=== PATIENT | male | born 1930 | race Caucasian/White ===

== ENCOUNTER 2016-10-03 15:47 | Inpatient (IN) | payer MEDICARE ==
[2016-10-03] MEDS ORDERED: Sodium Chloride 0.9% 1,000 ML IV STA (16:28)
--- NOTE | 2016-10-03 16:37 | ED PDOC ---
HPI: Abdomen Time Seen by Provider: 10/03/16 16:09 Chief Complaint (Nursing): Abdominal Pain Chief Complaint (Provider): Abdominal Pain History Per: Patient History/Exam Limitations: no limitations Onset/Duration Of Symptoms: Hrs (x2) Current Symptoms Are (Timing): Still Present Additional Complaint(s): Jose Sharma is a 86 year old male with previous medical history of diabetes and hypertension, who presents to the emergency department for a complaint of constant right-sided abdominal pain radiating to upper abdomen associated with chills ongoing to 2 hours. Denied any vomiting, diarrhea, or fever. PMD: Huan Bangura MD Past Medical History Reviewed: Historical Data, Nursing Documentation, Vital Signs Vital Signs: Last Vital Signs Temp 98.0 F 10/10/16 07:23 Pulse 82 10/10/16 09:01 Resp 20 10/10/16 07:23 BP 146/65 10/10/16 09:01 Pulse Ox 97 10/10/16 07:23 - Medical History PMH: Diabetes, HTN, Hypercholesterolemia - Surgical History Surgical History: Hernia Repair - Family History Family History: States: Unknown Family Hx - Social History Current smoker - smoking cessation education provided: No Drugs: Denies - Immunization History Hx Tetanus Toxoid Vaccination: (UTD as per patient) - Home Medications Home Medications: Ambulatory Orders Medication Instructions Recorded Ciprofloxacin HCl [Cipro] 500 mg PO Q12 #20 tablet 10/10/16 Olmesartan/Hydrochlorothiazide 1 tab PO DAILY #30 tab 10/10/16 [Benicar Hct 40-12.5 mg Tablet] Pioglitazone HCl/Metformin HCl 1 tab PO DAILY #30 tab 10/10/16 [Actoplus Met 15 mg-500 mg Tab] amLODIPine [Norvasc] 10 mg PO DAILY #30 tab 10/10/16 metroNIDAZOLE [Flagyl] 500 mg PO Q8 #30 tab 10/10/16 traMADol [Ultram] 50 mg PO Q6 PRN #20 tab 10/10/16 - Allergies Allergies/Adverse Reactions: Allergies Allergy/AdvReac Type Severity Reaction Status Date / Time Penicillins Allergy Mild RASH Verified 04/22/15 13:07 Review of Systems ROS Statement: Except As Marked, All Systems Reviewed And Found Negative Constitutional: Positive for: Chills. Negative for: Fever Gastrointestinal: Positive for: Abdominal Pain (constant; right sided radiating to upper abdomen ). Negative for: Vomiting, Diarrhea Physical Exam - Reviewed Nursing Documentation Reviewed: Yes Vital Signs Reviewed: Yes - Physical Exam Appears: Positive for: Well, Non-toxic, No Acute Distress Head Exam: Positive for: ATRAUMATIC, NORMAL INSPECTION, NORMOCEPHALIC Skin: Positive for: Normal Color, Warm, Dry Cardiovascular/Chest: Positive for: Regular Rate, Rhythm Respiratory: Positive for: CNT, Normal Breath Sounds Gastrointestinal/Abdominal: Positive for: Tenderness (RUQ) Back: Positive for: Normal Inspection. Negative for: L CVA Tenderness, R CVA Tenderness Extremity: Positive for: Normal ROM Neurologic/Psych: Positive for: Alert, car ferrier II-XII, Oriented - Laboratory Results Result Diagrams: 10/10/16 05:00 10/10/16 05:00 - ECG O2 Sat by Pulse Oximetry: 99 (RA) Pulse Ox Interpretation: Normal Medical Decision Making Medical Decision Making: Initial Impression: Abdominal pain Differential diagnosis: Acute cholecystitis; Pancreatitis; Renal colic with UTI Initial Plan: * VBG shock panel * Labs * Lipase * Urine dipstick * PTT * PT * Tylenol 650mg PO * NS 1,000ml IV per 500mls/hr * Zofran 4mg IV * Blood culture * Urine culture * US ABD * Re-evaluation Scribe Attestation: Documented by Diana Graf, acting as a scribe for Yenny Dennis MD. Provider Scribe Attestation: All medical record entries made by the Scribe were at my direction and personally dictated by me. I have reviewed the chart and agree that the record accurately reflects my personal performance of the history, physical exam, medical decision making, and the department course for this patient. I have also personally directed, reviewed, and agree with the discharge instructions and disposition. Disposition - Clinical Impression Clinical Impression: Acute pancreatitis, Abdominal pain - Patient ED Disposition Is Patient to be Admitted: Transfer of Care - Disposition Disposition: Transfer of Care Disposition Time: 17:00 Condition: FAIR Patient Signed Over To: Kristen Felix
--- NOTE | 2016-10-03 17:10 | ED PDOC ---
- Laboratory Results Result Diagrams: 10/03/16 17:20 10/03/16 17:20 - ECG O2 Sat by Pulse Oximetry: 99 (RA) - Physician Consult Information Time Consulting Physican Contacted: 20:10 Physician Contacted: Joanna Leal Outcome Of Conversation: Recommends additional 1 L LR then LR @ 200 cc/hr, Cefepime 1 g IV, MRCP in AM, repeat CBC and CMP (call [phone] with results). Medical Decision Making Medical Decision Making: Time: 1817 --US ABD FINDINGS: LIVER: Measures 14.6 cm in length and appears unremarkable. No focal hepatic mass identified. The main portal vein appears patent with normal directional flow. No intrahepatic bile duct dilatation. GALLBLADDER: Gallstones. No gallbladder wall thickening or pericholecystic edema. Negative sonographic Sandhu's sign as assessed by the diesel power mechanic. COMMON BILE DUCT: Measures 4 mm. PANCREAS: Not well visualized. RIGHT KIDNEY: Measures 8.4 x 4.4 x 4.8 cm. No obstructing calculus or hydronephrosis identified. AORTA: Limited visualization appears grossly unremarkable. IVC: Limited visualization appears grossly unremarkable. OTHER FINDINGS: None . IMPRESSION: Cholelithiasis Time: 1940 --CT ABD/Pelvis FINDINGS: Artifacts: Motion artifact degrades image quality. Streak artifact degrades image quality. Lower thorax: The heart is mildly enlarged. There are coronary calcifications. There is a hiatal hernia. There is minimal atelectasis at the lung bases ABDOMEN: Liver: unremarkable Gallbladder and bile ducts: Gallbladder is distended. There are small stones. Common duct is prominent. Pancreas: There is mild prominence of the pancreatic head. There is minimal edema about the pancreatic head. Pancreatic tail and body are unremarkable. Distal pancreatic duct is prominent, 5.5 mm in diameter. Spleen: unremarkable Adrenals: unremarkable Kidneys and ureters: unremarkable Stomach and bowel: Stomach is partially distended. There is mild antral and duodenal wall thickening. There is a moderately large duodenal diverticulum Rotation is normal. There are mildly distended jejunal loops in the left upper quadrant. There is no small bowel obstruction. Appendix and terminal ileum are unremarkable. There is moderate stool in the colon. There is scattered diverticulosis Appendix: See above. PELVIS: Bladder: Bladder is partially distended. There is mild bladder wall thickening. Reproductive: Prostate is enlarged. Seminal vesicles are unremarkable. ABDOMEN and PELVIS: Intraperitoneal space: No air-fluid Bones/joints: There are degenerative changes in the osseus structures. There is partial ankylosis of the sacroiliac joints. There is L5 spondylolysis with spondylolisthesis. There is degenerative disc disease L5-S1 with disc bulging. Soft tissues: There are bilateral fat-containing inguinal hernias. Vasculature: There are vascular calcifications. Lymph nodes: There is shotty upper para-aortic adenopathy. IMPRESSION: Prominence of the pancreatic head with adjacent inflammatory change and mild ductal dilatation, findings suggest pancreatitis, underlying neoplasm cannot be excluded; gallstone; no renal or ureteral stones or hydronephrosis; no CT findings of appendicitis or diverticulitis Disposition - Clinical Impression Clinical Impression: Acute pancreatitis - POA Present On Arrival: None - Disposition Disposition: Admitted as In-Patient Disposition Time: 20:20 Condition: GUARDED Forms: [facility] (Faroese) Addendum Addendum: 10/03/16 17:00 Pt signed out by Dr. Dennis pending labs and ultrasound.
[2016-10-03 17:35] LABS: ALB/GLOB RATIO 1.4 (1.0-2.1); ALKALINE PHOSPHATASE 128 U/L (38-126); ALT/SGPT 156 U/L (21-72); AST/SGOT 207 U/L (17-59); BILIRUBIN,TOTAL 1.3 mg/dl (0.2-1.3); BLOOD UREA NITROGEN 34 mg/dl (9-20); CALCIUM 9.5 mg/dL (8.4-10.2); CARBON DIOXIDE 23 mmol/L (22-30); CHLORIDE 102 mmol/L (98-107); GFR AFRICAN-AMERICAN > 60; GLUCOSE,RANDOM 140 mg/dL (75-110); SODIUM 139 mmol/l (132-148); TOTAL PROTEIN 7.8 G/DL (6.3-8.2)
[2016-10-03 17:40] LABS: BASO % 0.2 % (0.0-2.0); HEMATOCRIT 41.7 % (35.0-51.0); LYMPH # 0.4 K/uL (1.0-4.3); LYMPH % 2.4 % (20.0-40.0); MEAN CORPUSCULAR HEMOGLOBIN 26.9 pg (27.0-31.0); MEAN CORPUSCULAR HGB CONC 32.4 g/dL (33.0-37.0); MEAN PLATELET VOLUME 9.5 fl (7.2-11.7); MONO # 0.3 K/uL (0.0-0.8); MONO % 1.7 % (0.0-10.0); NEUT # 16.7 K/uL (1.8-7.0); NEUT % 95.7 % (50.0-75.0); PLATELET COUNT 152 K/uL (130-400); RED CELL DISTRIBUTION WIDTH 14.6 % (11.5-14.5); WHITE BLOOD COUNT 17.4 K/uL (4.8-10.8)
[2016-10-03 17:56] LABS: VENOUS BLOOD GAS BASE EXCESS -1.7 mmol/L (0.0-2.0); VENOUS BLOOD GAS PCO2 45 mmHg (40-60); VENOUS BLOOD PH 7.34 (7.32-7.43)
[2016-10-03 17:58] LABS: PARTIAL THROMBOPLASTIN TIME 29.2 Seconds (25.6-37.1)
[2016-10-03 18:12] LABS: LIPASE 30358 U/L (23-300)
--- NOTE | 2016-10-03 18:20 | US ---
HISTORY: RUQ pain COMPARISON: Abdominal ultrasound performed 01/02/12 TECHNIQUE: Sonographic evaluation of the right upper quadrant of the abdomen. FINDINGS: LIVER: Measures 14.6 cm in length and appears unremarkable. No focal hepatic mass identified. The main portal vein appears patent with normal directional flow. No intrahepatic bile duct dilatation. GALLBLADDER: Gallstones. No gallbladder wall thickening or pericholecystic edema. Negative sonographic Sandhu's sign as assessed by the technical operations specialist. COMMON BILE DUCT: Measures 4 mm. PANCREAS: Not well visualized. RIGHT KIDNEY: Measures 8.4 x 4.4 x 4.8 cm. No obstructing calculus or hydronephrosis identified. AORTA: Limited visualization appears grossly unremarkable. IVC: Limited visualization appears grossly unremarkable. OTHER FINDINGS: None . IMPRESSION: Cholelithiasis.
[2016-10-03] MEDS ORDERED: Lactated Ringer's 1,000 ML IV SCH ×3 (19:15→23:15)
[2016-10-03 19:29] LABS: LARGE PLATELETS PRESENT; NEUTROPHIL 86 % (42-75); REACTIVE LYMPHOCYTES 1 % (0-0); TOTAL CELLS COUNTED 100
--- NOTE | 2016-10-03 19:42 | CT ---
EXAM: CT Abdomen and Pelvis Without Intravenous Contrast CLINICAL HISTORY: 86 years old, male; Pain; Abdominal pain; Localized; Right upper quadrant (ruq); Patient HX: Pat C/O of rt side abd pain radiating to upper abdomen associated with chills ongoing to 2 hours; Additional info: R sided abd pain, fever TECHNIQUE: Axial computed tomography images of the abdomen and pelvis without intravenous contrast. This CT exam was performed using one or more of the following dose reduction techniques: automated exposure control, adjustment of the mA and/or kV according to patient size, and/or use of iterative reconstruction technique. Coronal and sagittal reformatted images were created and reviewed. EXAM DATE/TIME: 10/03/2016 6:14 PM COMPARISON: There are no prior studies for comparison. FINDINGS: Artifacts: Motion artifact degrades image quality. Streak artifact degrades image quality. Lower thorax: The heart is mildly enlarged. There are coronary calcifications. There is a hiatal hernia. There is minimal atelectasis at the lung bases ABDOMEN: Liver: unremarkable Gallbladder and bile ducts: Gallbladder is distended. There are small stones. Common duct is prominent. Pancreas: There is mild prominence of the pancreatic head. There is minimal edema about the pancreatic head. Pancreatic tail and body are unremarkable. Distal pancreatic duct is prominent, 5.5 mm in diameter. Spleen: unremarkable Adrenals: unremarkable Kidneys and ureters: unremarkable Stomach and bowel: Stomach is partially distended. There is mild antral and duodenal wall thickening. There is a moderately large duodenal diverticulum Rotation is normal. There are mildly distended jejunal loops in the left upper quadrant. There is no small bowel obstruction. Appendix and terminal ileum are unremarkable. There is moderate stool in the colon. There is scattered diverticulosis Appendix: See above. PELVIS: Bladder: Bladder is partially distended. There is mild bladder wall thickening. Reproductive: Prostate is enlarged. Seminal vesicles are unremarkable. ABDOMEN and PELVIS: Intraperitoneal space: No air-fluid Bones/joints: There are degenerative changes in the osseus structures. There is partial ankylosis of the sacroiliac joints. There is L5 spondylolysis with spondylolisthesis. There is degenerative disc disease L5-S1 with disc bulging. Soft tissues: There are bilateral fat-containing inguinal hernias. Vasculature: There are vascular calcifications. Lymph nodes: There is shotty upper para-aortic adenopathy. IMPRESSION: Prominence of the pancreatic head with adjacent inflammatory change and mild ductal dilatation, findings suggest pancreatitis, underlying neoplasm cannot be excluded; gallstone; no renal or ureteral stones or hydronephrosis; no CT findings of appendicitis or diverticulitis Additional findings as described above.
[2016-10-03] MEDS ORDERED: Cefepime 1 GM in Sodium Chloride 0.9% 100 ML IVPB STA (20:17)
[2016-10-03] MEDS ORDERED: Glucagon Recombinant 1 mg Inj IM PRN (21:26)
[2016-10-03] MEDS ORDERED: Dextrose 50% SYRINGE Inj (50 ml) IV PRN (21:26)
[2016-10-03] MEDS: Sodium Chloride 0.9% 1,000 ML IV SCH (21:36)
[2016-10-03 21:50] LABS: VENOUS BLOOD GAS BASE EXCESS -0.1 mmol/L (0.0-2.0); VENOUS BLOOD GAS PCO2 36 mmHg (40-60); VENOUS BLOOD PH 7.43 (7.32-7.43)
[2016-10-03] MEDS: Insulin Regular 100 units/ml SC SCH (23:50)
[2016-10-04 00:18] VITALS: BMI 29.4
[2016-10-04] MEDS ORDERED: Meropenem 1 GM in Sodium Chloride 0.9% 100 ML IVPB SCH (01:00)
[2016-10-04] MEDS: Sodium Chloride 0.9% 1,000 ML IV SCH ×3 (02:48→23:19)
[2016-10-04] MEDS: HYDROmorphone 0.5 mg/0.5 ml ISec IVP PRN ×2 (03:02→21:35)
--- NOTE | 2016-10-04 03:26 | CP.PCM.HP ---
History of Present Illness - History of Present Illness History of Present Illness: Chief complaint: Abdominal Pain HPI: PT is an 86 year old male with a pmhx diabetes & hypertension who comes in secondary to abdominal pain that radiates to the back and to the right. Currently the pain is 7-8/ 10 and intermittent and associated with fever and chills along with an elevated WBC. Pt initial lactate acid slightly elevated and repeat shows an elevation in lactic acid but the pt received 3 L bolus of lactated ringers. PT appears hemodynamically stable with only real complaint of abdominal pain. PMD: Huan Bangura MD Last Vital Signs Temp 100.5 F H 10/03/16 16:01 Pulse 87 10/03/16 16:01 Resp 18 10/03/16 16:01 BP 153/63 H 10/03/16 16:01 Pulse Ox 99 10/03/16 16:01 PMH: Diabetes, HTN, Hypercholesterolemia Surgical History: Hernia Repair Family History: noncontributary Social hx: Current smoker - no toxic habits - Home Medications: Ambulatory Orders Medication Instructions Recorded ALPRAZolam [Xanax] 1 tab PO DAILY PRN #4 tab 04/22/15 Acetaminophen [Acetaminophen Extra 500 mg PO Q6 PRN #15 tablet 04/22/15 Strength] Allergies Allergy/AdvReac Type Severity Reaction Status Date / Time Penicillins Allergy Mild RASH Verified 04/22/15 13:07 14 ROS (+ve) Abdominal pain, fever - ECG O2 Sat by Pulse Oximetry: 99 (RA) Pulse Ox Interpretation: Normal Present on Admission - Present on Admission Any Indicators Present on Admission: No History of DVT/PE: No History of Uncontrolled Diabetes: No Urinary Catheter: No Decubitus Ulcer Present: No Review of Systems - Constitutional Constitutional: Chills, Fever - EENT Eyes: absent: As Per HPI, Blind Spots, Blurred Vision, Change in Vision, Decreased Night Vision, Diplopia, Discharge, Dry Eye, Exophthalmos, Floaters, Irritation, Itchy Eyes, Loss of Peripheral Vision, Pain, Photophobia, Requires Corrective Lenses, Sees Flashes, Spots in Vision, Tunnel Vision, Other Visual Disturbances, Loss of Vision, Other Ears: absent: As Per HPI, Decreased Hearing, Ear Discharge, Ear Pain, Tinnitus, Abnormal Hearing, Disequilibrium, Dizziness, Other Nose/Mouth/Throat: absent: As Per HPI, Epistaxis, Nasal Congestion, Nasal Discharge, Nasal Obstruction, Nasal Trauma, Nose Pain, Post Nasal Drip, Sinus Pain, Sinus Pressure, Bleeding Gums, Change in Voice, Dental Pain, Dry Mouth, Dysphagia, Halitosis, Hoarsness, Lip Swelling, Mouth Lesions, Mouth Pain, Odynophagia, Sore Throat, Throat Swelling, Tongue Swelling, Facial Pain, Neck Pain, Neck Mass, Other - Cardiovascular Cardiovascular: absent: As Per HPI, Acrocyanosis, Chest Pain, Chest Pain at Rest , Chest Pain with Activity, Claudication, Diaphoresis, Dyspnea, Dyspnea on Exertion, Edema, Irregular Heart Rhythm, Pain Radiating to Arm/Neck/Jaw, Leg Edema, Leg Ulcers, Lightheadedness, Orthopnea, Palpitations, Paroxysmal Nocturnal Dyspnea, Pedal Edema, Radiating Pain, Rapid Heart Rate, Slow Heart Rate, Syncope, Other - Respiratory Respiratory: absent: As Per HPI, Cough, Dyspnea, Hemoptysis, Dyspnea on Exertion , Wheezing, Snoring, Stridor, Pain on Inspiration, Chest Congestion, Excessive Mucous Production, Change in Mucous Color, Pain with Coughing, Other - Gastrointestinal Gastrointestinal: Abdominal Pain - Musculoskeletal Musculoskeletal: absent: As Per HPI, Abnormal Gait, Arthralgias, Atrophy, Back Pain, Deformity, Joint Swelling, Limited Range of Motion, Loss of Height, Muscle Cramps, Muscle Weakness, Myalgias, Neck Pain, Numbness, Radiating Pain into Limb, Stiffness, Tingling, Other - Integumentary Integumentary: absent: As Per HPI, Acne, Alopecia, Bleeding Lesions, Change in Hair, Change in Nails, Change in Pigmentation, Changing Lesions, Dry Skin, Erythema, Furuncle, Hirsutism, Lesions, New Lesions, Non-Healing Lesions, Photosensitivity, Pruritus, Rash, Skin Pain, Skin Ulcer, Sores, Striae, Swelling , Unusual Bruising, Wounds, Jaundice, Other - Neurological Neurological: absent: As Per HPI, Abnormal Gait, Abnormal Hearing, Abnormal Movements, Abnormal Speech, Behavioral Changes, Burning Sensations, Confusion, Convulsions, Disequilibrium, Dizziness, Numbness, Focal Weakness, Frequent Falls , Headaches, Lack of Coordination, Loss of Vision, Memory Loss, Paresthesias, Radicular Pain, Restless Legs, Sensory Deficit, Syncope, Tingling, Tremor, Vertigo, Weakness, Other Visual Disturbances, Other - Psychiatric Psychiatric: absent: As Per HPI, Abnormal Sleep Pattern, Anhedonia, Anxiety, Auditory Hallucinations, Behavioral Changes, Change in Appetite, Change in Libido, Confusion, Depression, Difficulty Concentrating, Hallucinations, Homicidal Ideation, Hopelessness, Irritability, Memory Loss, Mood Swings, Panic Attacks, Paranoia, Suicidal Ideation, Visual Hallucinations, Tactile Hallucinations, Other - Endocrine Endocrine: absent: As Per HPI, Change in Body Appearance, Change in Libido, Cold Intolorance, Deepening of Voice, Excessive Sweating, Fatigue, Flushing, Heat Intolorance, Increase in Ring/Shoe/Hat Size, Palpitations, Polydipsia, Polyphagia, Polyuria, Other - Hematologic/Lymphatic Hematologic: absent: As Per HPI, Easy Bleeding, Easy Bruising, Lymphadenopathy, Other Past Patient History - Past Medical History & Family History Past Medical History?: Yes - Past Social History Smoking Status: Former Smoker Chewing Tobacco Use: No Cigar Use: No - CARDIAC Hx Cardiac Disorders: Yes Hx Hypertension: Yes - PULMONARY Hx Respiratory Disorders: No - NEUROLOGICAL Hx Neurological Disorder: No Other/Comment: 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 - HEENT Hx HEENT Problems: No - RENAL Hx Chronic Kidney Disease: No - ENDOCRINE/METABOLIC Hx Endocrine Disorders: Yes Hx Diabetes Mellitus Type 2: Yes - HEMATOLOGICAL/ONCOLOGICAL Hx Blood Disorders: No Hx AIDS: No Hx Human Immunodeficiency Virus (HIV): No - INTEGUMENTARY Hx Dermatological Problems: No - MUSCULOSKELETAL/RHEUMATOLOGICAL Hx Musculoskeletal Disorders: No Hx Falls: No - GASTROINTESTINAL Hx Gastrointestinal Disorders: No - GENITOURINARY/GYNECOLOGICAL Hx Genitourinary Disorders: No - PSYCHIATRIC Hx Psychophysiologic Disorder: No Hx Substance Use: No - SURGICAL HISTORY Hx Surgeries: Yes Hx Herniorrhaphy: Yes - ANESTHESIA Hx Anesthesia: No Hx Anesthesia Reactions: No Hx Malignant Hyperthermia: No Has any member of the family had a problem w/ anesthesia?: No Meds Allergies/Adverse Reactions: Allergies Allergy/AdvReac Type Severity Reaction Status Date / Time Penicillins Allergy Mild RASH Verified 04/22/15 13:07 Physical Exam - Constitutional Appears: Well, In Acute Distress - Head Exam Head Exam: ATRAUMATIC, NORMAL INSPECTION, NORMOCEPHALIC - Eye Exam Eye Exam: EOMI, Normal appearance, PERRL Pupil Exam: NORMAL ACCOMODATION - ENT Exam ENT Exam: Mucous Membranes Moist, Normal Exam - Neck Exam Neck exam: Positive for: Normal Inspection - Respiratory Exam Respiratory Exam: Clear to Auscultation Bilateral, NORMAL BREATHING PATTERN - Cardiovascular Exam Cardiovascular Exam: REGULAR RHYTHM, +S2 - GI/Abdominal Exam GI & Abdominal Exam: Normal Bowel Sounds - Extremities Exam Extremities exam: Positive for: normal inspection - Back Exam Back exam: NORMAL INSPECTION - Neurological Exam Neurological exam: Alert, CN II-XII Intact, Normal Gait, Oriented x3, Reflexes Normal - Psychiatric Exam Psychiatric exam: Normal Affect, Normal Mood - Skin Skin Exam: Dry, Intact, Normal Color, Warm Results - Vital Signs Recent Vital Signs: Last Vital Signs Temp 98.5 F 10/04/16 00:00 Pulse 82 10/04/16 03:04 Resp 18 10/04/16 03:04 BP 141/54 L 10/04/16 03:04 Pulse Ox 94 L 10/04/16 03:04 - Labs Result Diagrams: 10/03/16 17:20 10/03/16 17:20 Labs: Laboratory Results - last 24 hr 10/03/16 10/03/16 21:45 22:54 pO2 24 L VBG pH 7.43 VBG pCO2 36 L VBG HCO3 23.4 VBG Total CO2 25.0 VBG O2 Sat (Calc) 52.6 VBG Base Excess -0.1 L Sodium 183.0 H* Chloride 121.0 H Glucose 118 H Lactate 3.8 H FiO2 21.0 Blood Gas Comments Vbg Crit Value Called To Dr maria dolores cortes Crit Value Called By 162 Crit Value Read Back Y Blood Gas Notified Time 2149 POC Glucose (mg/dL) 123 H Assessment & Plan - Assessment and Plan (Free Text) Assessment: PT is a 86 yo male gambian speaking who comes in secondary to abdominal pain that a Ct scan confirms is a pancreatitis along with an elevated lipase level. Plan: admit to [facility] 1) pancreatitis- with an elevated lipase and high white count - iv abx with zosyn - iv pain management with dilaudid - iv aggresive fluid hydration at 150 cc/hr - fever/chills- pancytopenia - npo 2) Dm- sliding scale with sliding scale 3) HTn- will hold bp meds for now 4) gi and dvt prophylaxis - Date & Time Date: 10/04/16 Time: 03:34
[2016-10-04 05:21] LABS: BASO % 0.1 % (0.0-2.0); HEMATOCRIT 34.3 % (35.0-51.0); LYMPH # 0.3 K/uL (1.0-4.3); LYMPH % 1.5 % (20.0-40.0); MEAN CELL VOLUME 81.8 fl (80.0-94.0); MEAN CORPUSCULAR HEMOGLOBIN 26.4 pg (27.0-31.0); MEAN CORPUSCULAR HGB CONC 32.3 g/dL (33.0-37.0); MEAN PLATELET VOLUME 9.9 fl (7.2-11.7); MONO # 1.3 K/uL (0.0-0.8); MONO % 5.7 % (0.0-10.0); NEUT # 20.9 K/uL (1.8-7.0); NEUT % 92.7 % (50.0-75.0); PLATELET COUNT 122 K/uL (130-400); RED CELL DISTRIBUTION WIDTH 14.1 % (11.5-14.5); WHITE BLOOD COUNT 22.5 K/uL (4.8-10.8)
[2016-10-04 05:29] LABS: ALB/GLOB RATIO 1.2 (1.0-2.1); ALKALINE PHOSPHATASE 108 U/L (38-126); ALT/SGPT 349 U/L (21-72); AST/SGOT 296 U/L (17-59); BILIRUBIN,TOTAL 3.3 mg/dl (0.2-1.3); BLOOD UREA NITROGEN 25 mg/dl (9-20); CALCIUM 8.3 mg/dL (8.4-10.2); CARBON DIOXIDE 23 mmol/L (22-30); CHLORIDE 107 mmol/L (98-107); CHOLESTEROL 127 mg/dL (0-199); GFR AFRICAN-AMERICAN > 60; GLUCOSE,RANDOM 111 mg/dL (75-110); MAGNESIUM 1.5 MG/DL (1.6-2.3); POTASSIUM 3.8 MMOL/L (3.6-5.0); SODIUM 137 mmol/l (132-148); TOTAL PROTEIN 5.9 G/DL (6.3-8.2)
[2016-10-04 05:52] LABS: NEUTROPHIL 94 % (42-75); TOTAL CELLS COUNTED 100
[2016-10-04 06:09] LABS: LIPASE 3990 U/L (23-300)
[2016-10-04] MEDS: Insulin Regular 100 units/ml SC SCH ×4 (06:33→21:39)
--- NOTE | 2016-10-04 07:55 | CP.CCUPN ---
<Alice Song - Last Filed: 10/04/16 12:26> CCU Subjective - Physician Review Subjective (Free Text): 10/04/16 07:52 Patient seen and examined bedside. Patient states that abdominal pain has subsided 90 % with medications. Patient denies in the morning abdominal pain, fever, N/V/D, constipation. Patient denies weight loss, jaundice, choluria.NPO. last BM 2 days ago. Febrile on admission and today in the morning T max 100.8 3am.will have MRCP in the morning CCU Objective - Vital Signs / Intake & Output Vital Signs (Last 4 hours): Vital Signs Temp Pulse Resp BP Pulse Ox 10/04/16 07:34 98.3 F 59 L 16 118/52 L 98 10/04/16 06:03 99.4 F 66 22 102/49 L 96 10/04/16 04:00 100.4 F H 79 16 99 Intake and Output (Last 8hrs): Intake & Output 10/03/16 10/04/16 10/04/16 22:59 06:59 14:59 Intake Total 1450 150 Output Total 1300 Balance 150 150 Weight 166 lb Intake: IV 1350 150 Oral 100 Output: Urine 1300 Urine, Voided 1300 Other: # Voids Urine, Voided 1 # Bowel Movements 0 - Physical Exam Head: Positive for: Atraumatic, Normocephalic Conjunctiva: Positive for: Normal Mouth: Positive for: Moist Mucous Membranes Respiratory/Chest: Positive for: Good Air Exchange, Rales (scattered fine rales b/L lung bases). Negative for: Wheezes, Rhonchi Cardiovascular: Positive for: Regular Rate and Rhythm, Normal S1, S2. Negative for: Murmurs Abdomen: Positive for: Tenderness (Mild TD on epigastrium, Neg Sandhu's sign), Normal Bowel Sounds. Negative for: Distention, Rebound, Guarding Upper Extremity: Positive for: Other (3rd left fingertip with small 0.5 cm hematoma) Lower Extremity: Positive for: Normal Inspection. Negative for: Edema Neurological: Positive for: Speech Normal, Motor Func Grossly Intact Skin: Positive for: Warm, Normal Color Psychiatric: Positive for: Alert, Oriented x 3 - Medications Active Medications: Active Medications Generic Name Dose Route Start Last Admin Trade Name Freq PRN Reason Stop Dose Admin Acetaminophen 650 mg 10/04/16 03:14 10/04/16 03:20 Tylenol 650 Mg Supp NH 650 mg Q6 PRN Administration Fever >100.4 F Dextrose 0 ml 10/03/16 21:26 Dextrose 50% Inj IV STAT PRN Hyglycemia Protocol Protocol Dextrose 0 gm 10/03/16 21:26 Glutose 15 PO ONCE PRN Hypoglycemia Protocol Protocol Enoxaparin Sodium 40 mg 10/04/16 09:00 Lovenox SC DAILY SUDHA Protocol Famotidine 20 mg 10/04/16 09:00 Pepcid IVP DAILY SUDHA Glucagon 0 mg 10/03/16 21:26 Glucagen Diagnostic Kit IM STAT PRN Hypoglycemia Protocol Protocol Hydromorphone HCl 0.5 mg 10/04/16 02:56 10/04/16 03:02 Dilaudid IVP 0.5 mg RQ4PRN PRN Administration Pain, severe (8-10) Lactated Ringer's 1,000 mls @ 1,000 mls/hr 10/03/16 19:15 10/03/16 19:18 Lactated Ringer's IV 1,000 mls/hr .Q1H SUDHA Administration Lactated Ringer's 1,000 mls @ 1,000 mls/hr 10/03/16 20:30 10/03/16 20:53 Lactated Ringer's IV 1,000 mls/hr .Q1H SUDHA Administration Sodium Chloride 1,000 mls @ 150 mls/hr 10/03/16 21:15 10/04/16 02:48 Sodium Chloride 0.9% IV 10/04/16 21:14 150 mls/hr .[id number] SUDHA Administration Cefepime HCl 1 gm/ Sodium 100 mls @ 100 mls/hr 10/04/16 09:00 Chloride IVPB Q8 SUDHA Lactated Ringer's 1,000 mls @ 200 mls/hr 10/03/16 23:15 Lactated Ringer's IV .Q5H SUDHA Insulin Human Regular 0 units 10/03/16 22:00 10/04/16 06:33 Humulin R SC Not Given ACHS [facility] Protocol Ondansetron HCl 4 mg 10/03/16 21:15 Zofran Inj IVP Q6 PRN Nausea/Vomiting Pneumococcal Polyvalent Vaccine 0.5 ml 10/04/16 08:00 Pneumovax 23 Vaccine IM 10/04/16 08:01 .ONCE ONE - Patient Studies Lab Studies: Lab Studies 10/04/16 10/04/16 10/04/16 Range/Units 05:27 04:25 04:25 WBC 22.5 H (4.8-10.8) K/uL RBC 4.19 L (4.40-5.90) Mil/uL Hgb 11.1 L D (12.0-18.0) g/dL Hct 34.3 L (35.0-51.0) % MCV 81.8 (80.0-94.0) fl MCH 26.4 L (27.0-31.0) pg MCHC 32.3 L (33.0-37.0) g/dL RDW 14.1 (11.5-14.5) % Plt Count 122 L D (130-400) K/uL MPV 9.9 (7.2-11.7) fl Neut % (Auto) 92.7 H (50.0-75.0) % Lymph % (Auto) 1.5 L (20.0-40.0) % [place] % (Auto) 5.7 (0.0-10.0) % Eos % (Auto) 0.0 (0.0-4.0) % Baso % (Auto) 0.1 (0.0-2.0) % Neut # 20.9 H (1.8-7.0) K/uL Lymph # 0.3 L (1.0-4.3) K/uL [place] # 1.3 H (0.0-0.8) K/uL Eos # 0.0 (0.0-0.7) K/uL Baso # 0.0 (0.0-0.2) K/uL Neutrophils % (Manual) 94 H (42-75) % Lymphocytes % (Manual) 1 L (20-50) % Monocytes % (Manual) 5 (0-10) % Platelet Estimate Slightly decreased L (NORMAL) Anisocytosis (manual) Slight pO2 (30-55) mm/Hg VBG pH (7.32-7.43) VBG pCO2 (40-60) mmHg VBG HCO3 mmol/L VBG Total CO2 (22-28) mmol/L VBG O2 Sat (Calc) (40-65) % VBG Base Excess (0.0-2.0) mmol/L Sodium 137 (132-148) mmol/L Chloride 107 (98-107) mmol/L Glucose (75-110) mg/dL Lactate (0.7-2.1) mmol/L FiO2 % Blood Gas Comments Crit Value Called To Crit Value Called By Crit Value Read Back Blood Gas Notified Time Potassium 3.8 (3.6-5.0) MMOL/L Carbon Dioxide 23 (22-30) mmol/L Anion Gap 11 (10-20) BUN 25 H (9-20) mg/dl Creatinine 1.0 (0.8-1.5) mg/dL Est GFR ( Amer) > 60 Est GFR (Non-Af Amer) > 60 POC Glucose (mg/dL) 113 H (65-110) mg/dL Random Glucose 111 H (75-110) mg/dL Calcium 8.3 L (8.4-10.2) mg/dL Magnesium 1.5 L (1.6-2.3) MG/DL Total Bilirubin 3.3 H (0.2-1.3) mg/dl AST 296 H D (17-59) U/L ALT 349 H D (21-72) U/L Alkaline Phosphatase 108 (38-126) U/L Total Protein 5.9 L (6.3-8.2) G/DL Albumin 3.2 L D (3.5-5.0) g/dL Globulin 2.7 (2.2-3.9) gm/dL Albumin/Globulin Ratio 1.2 (1.0-2.1) Triglycerides 53 D (0-149) mg/DL Cholesterol 127 (0-199) mg/dL LDL Cholesterol Direct 80 (0-129) mg/dL HDL Cholesterol 29 L (30-70) MG/DL Lipase 3990 H (23-300) U/L 10/03/16 10/03/16 Range/Units 22:54 21:45 WBC (4.8-10.8) K/uL RBC (4.40-5.90) Mil/uL Hgb (12.0-18.0) g/dL Hct (35.0-51.0) % MCV (80.0-94.0) fl MCH (27.0-31.0) pg MCHC (33.0-37.0) g/dL RDW (11.5-14.5) % Plt Count (130-400) K/uL MPV (7.2-11.7) fl Neut % (Auto) (50.0-75.0) % Lymph % (Auto) (20.0-40.0) % [place] % (Auto) (0.0-10.0) % Eos % (Auto) (0.0-4.0) % Baso % (Auto) (0.0-2.0) % Neut # (1.8-7.0) K/uL Lymph # (1.0-4.3) K/uL [place] # (0.0-0.8) K/uL Eos # (0.0-0.7) K/uL Baso # (0.0-0.2) K/uL Neutrophils % (Manual) (42-75) % Lymphocytes % (Manual) (20-50) % Monocytes % (Manual) (0-10) % Platelet Estimate (NORMAL) Anisocytosis (manual) pO2 24 L (30-55) mm/Hg VBG pH 7.43 (7.32-7.43) VBG pCO2 36 L (40-60) mmHg VBG HCO3 23.4 mmol/L VBG Total CO2 25.0 (22-28) mmol/L VBG O2 Sat (Calc) 52.6 (40-65) % VBG Base Excess -0.1 L (0.0-2.0) mmol/L Sodium 183.0 H* (132-148) mmol/L Chloride 121.0 H (98-107) mmol/L Glucose 118 H (75-110) mg/dL Lactate 3.8 H (0.7-2.1) mmol/L FiO2 21.0 % Blood Gas Comments Vbg Crit Value Called To Dr maria dolores cortes Crit Value Called By 162 Crit Value Read Back Y Blood Gas Notified Time 3 Potassium (3.6-5.0) MMOL/L Carbon Dioxide (22-30) mmol/L Anion Gap (10-20) BUN (9-20) mg/dl Creatinine (0.8-1.5) mg/dL Est GFR ( Amer) Est GFR (Non-Af Amer) POC Glucose (mg/dL) 123 H (65-110) mg/dL Random Glucose (75-110) mg/dL Calcium (8.4-10.2) mg/dL Magnesium (1.6-2.3) MG/DL Total Bilirubin (0.2-1.3) mg/dl AST (17-59) U/L ALT (21-72) U/L Alkaline Phosphatase (38-126) U/L Total Protein (6.3-8.2) G/DL Albumin (3.5-5.0) g/dL Globulin (2.2-3.9) gm/dL Albumin/Globulin Ratio (1.0-2.1) Triglycerides (0-149) mg/DL Cholesterol (0-199) mg/dL LDL Cholesterol Direct (0-129) mg/dL HDL Cholesterol (30-70) MG/DL Lipase (23-300) U/L Laboratory Results - last 24 hr 10/03/16 10/03/16 10/04/16 21:45 22:54 04:25 WBC 22.5 H RBC 4.19 L Hgb 11.1 L D Hct 34.3 L MCV 81.8 MCH 26.4 L MCHC 32.3 L RDW 14.1 Plt Count 122 L D MPV 9.9 Neut % (Auto) 92.7 H Lymph % (Auto) 1.5 L [place] % (Auto) 5.7 Eos % (Auto) 0.0 Baso % (Auto) 0.1 Neut # 20.9 H Lymph # 0.3 L [place] # 1.3 H Eos # 0.0 Baso # 0.0 Neutrophils % (Manual) 94 H Lymphocytes % (Manual) 1 L Monocytes % (Manual) 5 Platelet Estimate Slightly decreased L Anisocytosis (manual) Slight pO2 24 L VBG pH 7.43 VBG pCO2 36 L VBG HCO3 23.4 VBG Total CO2 25.0 VBG O2 Sat (Calc) 52.6 VBG Base Excess -0.1 L Sodium 183.0 H* Chloride 121.0 H Glucose 118 H Lactate 3.8 H FiO2 21.0 Blood Gas Comments Vbg Crit Value Called To Dr maria dolores cortes Crit Value Called By 162 Crit Value Read Back Y Blood Gas Notified Time 3428 Potassium Carbon Dioxide Anion Gap BUN Creatinine Est GFR ( Amer) Est GFR (Non-Af Amer) POC Glucose (mg/dL) 123 H Random Glucose Calcium Magnesium Total Bilirubin AST ALT Alkaline Phosphatase Total Protein Albumin Globulin Albumin/Globulin Ratio Triglycerides Cholesterol LDL Cholesterol Direct HDL Cholesterol Lipase 10/04/16 10/04/16 04:25 05:27 WBC RBC Hgb Hct MCV MCH MCHC RDW Plt Count MPV Neut % (Auto) Lymph % (Auto) [place] % (Auto) Eos % (Auto) Baso % (Auto) Neut # Lymph # [place] # Eos # Baso # Neutrophils % (Manual) Lymphocytes % (Manual) Monocytes % (Manual) Platelet Estimate Anisocytosis (manual) pO2 VBG pH VBG pCO2 VBG HCO3 VBG Total CO2 VBG O2 Sat (Calc) VBG Base Excess Sodium 137 Chloride 107 Glucose Lactate FiO2 Blood Gas Comments Crit Value Called To Crit Value Called By Crit Value Read Back Blood Gas Notified Time Potassium 3.8 Carbon Dioxide 23 Anion Gap 11 BUN 25 H Creatinine 1.0 Est GFR ( Amer) > 60 Est GFR (Non-Af Amer) > 60 POC Glucose (mg/dL) 113 H Random Glucose 111 H Calcium 8.3 L Magnesium 1.5 L Total Bilirubin 3.3 H AST 296 H D ALT 349 H D Alkaline Phosphatase 108 Total Protein 5.9 L Albumin 3.2 L D Globulin 2.7 Albumin/Globulin Ratio 1.2 Triglycerides 53 D Cholesterol 127 LDL Cholesterol Direct 80 HDL Cholesterol 29 L Lipase 3990 H Fingerstick Blood Sugar Results: 113 Review of Systems - Cardiovascular Cardiovascular: absent: Chest Pain, Dyspnea on Exertion, Edema - Respiratory Respiratory: Cough. absent: Dyspnea, Wheezing - Gastrointestinal Gastrointestinal: Abdominal Pain. absent: Dysphagia, Heartburn, Hematemesis Assessment/Plan - Assessment and Plan (Free Text) Plan: 86 yo ,m, PMhx/o DM , HTN presents c/o chills for the last 4 days and RUQ abdominal pain started yesterday afternoon, radiated to the back, not associated with N/V/D, jaundice. Patient admitted in ICU for Acute Pancreatitis. 1) Acute Pancreatitis -secondary to cholelithiasis or choledocholithiasis -RUQ and epigastric abd pain, febrile -Labs reviewed, leukocytosis with lef shift deviation, lipid profile normal. -lipase increased 01878 trending down 3990 -CTAbd: Cholelithiasis.Prominence of the pancreatic head with adjacent inflammatory change and mild ductal dilatation, findings suggest pancreatitis -GI consult appreciated: suggesting MRCP -MRCP:cholelithiasis with pericholecystic fluid suspicisous for acute cholecystitis. 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 -Surgery Consult appreciated -ID consult suggested -NPO -IV fluids NS 125 ml/h -pain meds Dilaudid 0.5 mg IV Q4h PRN pain -cefepime 1gm IV q8h -pepcid 20 mg IV daily 2) Acute cholecystitis -RUQ abd pain , febrile -MRCP:cholelithiasis with pericholecystic fluid suspicisous for acute cholecystitis -Surgery consult suggested -As per surgery resident probably lap aixa will be after pancreatitis is resolved 3) Transaminitis -Secondary to pancreatitis and cholecystitis -AST 296 ALT 349 4) DM -Insulin Humulin sliding scale -Hypoglycemia protocol -Hgb a1c 6.3 03/2016 5) HTN -controlled -Held home med Benicar 6) DVT prophylasis -Lovenox 40 mg SC <Freddy Baez - Last Filed: 10/04/16 13:21> CCU Objective - Vital Signs / Intake & Output Vital Signs (Last 4 hours): Vital Signs Temp Pulse Resp BP Pulse Ox 10/04/16 12:06 99.0 F 72 17 119/65 95 10/04/16 11:00 70 21 131/65 95 10/04/16 10:00 58 L 20 110/64 96 Intake and Output (Last 8hrs): Intake & Output 10/03/16 10/04/16 10/04/16 22:59 06:59 14:59 Intake Total 1450 750 Output Total 1300 500 Balance 150 250 Weight 166 lb Intake: IV 1350 600 Intake, Piggyback 150 Oral 100 Output: Urine 1300 500 Urine, Voided 1300 500 Other: # Voids Urine, Voided 1 # Bowel Movements 0 - Medications Active Medications: Active Medications Generic Name Dose Route Start Last Admin Trade Name Freq PRN Reason Stop Dose Admin Acetaminophen 650 mg 10/04/16 03:14 10/04/16 03:20 Tylenol 650 Mg Supp NH 650 mg Q6 PRN Administration Fever >100.4 F Dextrose 0 ml 10/03/16 21:26 Dextrose 50% Inj IV STAT PRN Hyglycemia Protocol Protocol Dextrose 0 gm 10/03/16 21:26 Glutose 15 PO ONCE PRN Hypoglycemia Protocol Protocol Enoxaparin Sodium 40 mg 10/04/16 09:00 10/04/16 08:20 Lovenox SC 40 mg DAILY SUDHA Administration Protocol Famotidine 20 mg 10/04/16 09:00 10/04/16 08:20 Pepcid IVP 20 mg DAILY SUDHA Administration Glucagon 0 mg 10/03/16 21:26 Glucagen Diagnostic Kit IM STAT PRN Hypoglycemia Protocol Protocol Hydromorphone HCl 0.5 mg 10/04/16 02:56 10/04/16 03:02 Dilaudid IVP 0.5 mg [id number] PRN Administration Pain, severe (8-10) Lactated Ringer's 1,000 mls @ 1,000 mls/hr 10/03/16 19:15 10/03/16 19:18 Lactated Ringer's IV 1,000 mls/hr .Q1H SUDHA Administration Lactated Ringer's 1,000 mls @ 1,000 mls/hr 10/03/16 20:30 10/03/16 20:53 Lactated Ringer's IV 1,000 mls/hr .Q1H SUDHA Administration Sodium Chloride 1,000 mls @ 150 mls/hr 10/03/16 21:15 10/04/16 12:56 Sodium Chloride 0.9% IV 10/06/16 21:14 150 mls/hr .Q6H40M SUDHA Administration Cefepime HCl 1 gm/ Sodium 100 mls @ 100 mls/hr 10/04/16 09:00 10/04/16 08:21 Chloride IVPB 100 mls/hr Q8 SUDHA Administration Lactated Ringer's 1,000 mls @ 200 mls/hr 10/03/16 23:15 Lactated Ringer's IV .Q5H SUDHA Insulin Human Regular 0 units 10/03/16 22:00 10/04/16 11:06 Humulin R SC Not Given ACHS SUDHA Protocol Ondansetron HCl 4 mg 10/03/16 21:15 Zofran Inj IVP Q6 PRN Nausea/Vomiting - Patient Studies Lab Studies: Lab Studies 10/04/16 10/04/16 10/04/16 Range/Units 11:04 08:20 05:27 WBC (4.8-10.8) K/uL RBC (4.40-5.90) Mil/uL Hgb (12.0-18.0) g/dL Hct (35.0-51.0) % MCV (80.0-94.0) fl MCH (27.0-31.0) pg MCHC (33.0-37.0) g/dL RDW (11.5-14.5) % Plt Count (130-400) K/uL MPV (7.2-11.7) fl Neut % (Auto) (50.0-75.0) % Lymph % (Auto) (20.0-40.0) % [place] % (Auto) (0.0-10.0) % Eos % (Auto) (0.0-4.0) % Baso % (Auto) (0.0-2.0) % Neut # (1.8-7.0) K/uL Lymph # (1.0-4.3) K/uL [place] # (0.0-0.8) K/uL Eos # (0.0-0.7) K/uL Baso # (0.0-0.2) K/uL Neutrophils % (Manual) (42-75) % Lymphocytes % (Manual) (20-50) % Monocytes % (Manual) (0-10) % Platelet Estimate (NORMAL) Anisocytosis (manual) pO2 (30-55) mm/Hg VBG pH (7.32-7.43) VBG pCO2 (40-60) mmHg VBG HCO3 mmol/L VBG Total CO2 (22-28) mmol/L VBG O2 Sat (Calc) (40-65) % VBG Base Excess (0.0-2.0) mmol/L Sodium (132-148) mmol/L Chloride (98-107) mmol/L Glucose (75-110) mg/dL Lactate (0.7-2.1) mmol/L FiO2 % Blood Gas Comments Crit Value Called To Crit Value Called By Crit Value Read Back Blood Gas Notified Time Potassium (3.6-5.0) MMOL/L Carbon Dioxide (22-30) mmol/L Anion Gap (10-20) BUN (9-20) mg/dl Creatinine (0.8-1.5) mg/dL Est GFR ( Amer) Est GFR (Non-Af Amer) POC Glucose (mg/dL) 107 113 H (65-110) mg/dL Random Glucose (75-110) mg/dL Calcium (8.4-10.2) mg/dL Magnesium (1.6-2.3) MG/DL Total Bilirubin (0.2-1.3) mg/dl AST (17-59) U/L ALT (21-72) U/L Alkaline Phosphatase (38-126) U/L Total Protein (6.3-8.2) G/DL Albumin (3.5-5.0) g/dL Globulin (2.2-3.9) gm/dL Albumin/Globulin Ratio (1.0-2.1) Triglycerides (0-149) mg/DL Cholesterol (0-199) mg/dL LDL Cholesterol Direct (0-129) mg/dL HDL Cholesterol (30-70) MG/DL Lipase (23-300) U/L Urine Color Yellow (YELLOW) Urine Clarity Clear (Clear) Urine pH 6.0 (5.0-8.0) Ur Specific [place] 1.013 (1.003-1.030) Urine Protein Negative (NEGATIVE) mg/dL Urine Glucose (UA) Neg (Normal) mg/dL Urine Ketones Negative (NEGATIVE) mg/dL Urine Blood Negative (NEGATIVE) Urine Nitrate Negative (NEGATIVE) Urine Bilirubin Negative (NEGATIVE) Urine Urobilinogen 0.2-1.0 (0.2-1.0) mg/dL Ur Leukocyte Esterase Neg (Negative) Carol/uL Urine RBC (Auto) 3 (0-3) /hpf Urine Microscopic WBC < 1 (0-5) /hpf Ur Squamous Epith Cells < 1 (0-5) /hpf 10/04/16 10/04/16 10/04/16 Range/Units 04:30 04:25 04:25 WBC 22.5 H (4.8-10.8) K/uL RBC 4.19 L (4.40-5.90) Mil/uL Hgb 11.1 L D (12.0-18.0) g/dL Hct 34.3 L (35.0-51.0) % MCV 81.8 (80.0-94.0) fl MCH 26.4 L (27.0-31.0) pg MCHC 32.3 L (33.0-37.0) g/dL RDW 14.1 (11.5-14.5) % Plt Count 122 L D (130-400) K/uL MPV 9.9 (7.2-11.7) fl Neut % (Auto) 92.7 H (50.0-75.0) % Lymph % (Auto) 1.5 L (20.0-40.0) % [place] % (Auto) 5.7 (0.0-10.0) % Eos % (Auto) 0.0 (0.0-4.0) % Baso % (Auto) 0.1 (0.0-2.0) % Neut # 20.9 H (1.8-7.0) K/uL Lymph # 0.3 L (1.0-4.3) K/uL [place] # 1.3 H (0.0-0.8) K/uL Eos # 0.0 (0.0-0.7) K/uL Baso # 0.0 (0.0-0.2) K/uL Neutrophils % (Manual) 94 H (42-75) % Lymphocytes % (Manual) 1 L (20-50) % Monocytes % (Manual) 5 (0-10) % Platelet Estimate Slightly decreased L (NORMAL) Anisocytosis (manual) Slight pO2 (30-55) mm/Hg VBG pH (7.32-7.43) VBG pCO2 (40-60) mmHg VBG HCO3 mmol/L VBG Total CO2 (22-28) mmol/L VBG O2 Sat (Calc) (40-65) % VBG Base Excess (0.0-2.0) mmol/L Sodium 137 (132-148) mmol/L Chloride 107 (98-107) mmol/L Glucose (75-110) mg/dL Lactate (0.7-2.1) mmol/L FiO2 % Blood Gas Comments Crit Value Called To Crit Value Called By Crit Value Read Back Blood Gas Notified Time Potassium 3.8 (3.6-5.0) MMOL/L Carbon Dioxide 23 (22-30) mmol/L Anion Gap 11 (10-20) BUN 25 H (9-20) mg/dl Creatinine 1.0 (0.8-1.5) mg/dL Est GFR ( Amer) > 60 Est GFR (Non-Af Amer) > 60 POC Glucose (mg/dL) (65-110) mg/dL Random Glucose 111 H (75-110) mg/dL Calcium 8.3 L (8.4-10.2) mg/dL Magnesium 1.5 L (1.6-2.3) MG/DL Total Bilirubin 3.3 H (0.2-1.3) mg/dl AST 296 H D (17-59) U/L ALT 349 H D (21-72) U/L Alkaline Phosphatase 108 (38-126) U/L Total Protein 5.9 L (6.3-8.2) G/DL Albumin 3.2 L D (3.5-5.0) g/dL Globulin 2.7 (2.2-3.9) gm/dL Albumin/Globulin Ratio 1.2 (1.0-2.1) Triglycerides 53 53 D (0-149) mg/DL Cholesterol 126 127 (0-199) mg/dL LDL Cholesterol Direct 86 80 (0-129) mg/dL HDL Cholesterol 27 L 29 L (30-70) MG/DL Lipase 3990 H (23-300) U/L Urine Color (YELLOW) Urine Clarity (Clear) Urine pH (5.0-8.0) Ur Specific [place] (1.003-1.030) Urine Protein (NEGATIVE) mg/dL Urine Glucose (UA) (Normal) mg/dL Urine Ketones (NEGATIVE) mg/dL Urine Blood (NEGATIVE) Urine Nitrate (NEGATIVE) Urine Bilirubin (NEGATIVE) Urine Urobilinogen (0.2-1.0) mg/dL Ur Leukocyte Esterase (Negative) Carol/uL Urine RBC (Auto) (0-3) /hpf Urine Microscopic WBC (0-5) /hpf Ur Squamous Epith Cells (0-5) /hpf 10/03/16 10/03/16 Range/Units 22:54 21:45 WBC (4.8-10.8) K/uL RBC (4.40-5.90) Mil/uL Hgb (12.0-18.0) g/dL Hct (35.0-51.0) % MCV (80.0-94.0) fl MCH (27.0-31.0) pg MCHC (33.0-37.0) g/dL RDW (11.5-14.5) % Plt Count (130-400) K/uL MPV (7.2-11.7) fl Neut % (Auto) (50.0-75.0) % Lymph % (Auto) (20.0-40.0) % [place] % (Auto) (0.0-10.0) % Eos % (Auto) (0.0-4.0) % Baso % (Auto) (0.0-2.0) % Neut # (1.8-7.0) K/uL Lymph # (1.0-4.3) K/uL [place] # (0.0-0.8) K/uL Eos # (0.0-0.7) K/uL Baso # (0.0-0.2) K/uL Neutrophils % (Manual) (42-75) % Lymphocytes % (Manual) (20-50) % Monocytes % (Manual) (0-10) % Platelet Estimate (NORMAL) Anisocytosis (manual) pO2 24 L (30-55) mm/Hg VBG pH 7.43 (7.32-7.43) VBG pCO2 36 L (40-60) mmHg VBG HCO3 23.4 mmol/L VBG Total CO2 25.0 (22-28) mmol/L VBG O2 Sat (Calc) 52.6 (40-65) % VBG Base Excess -0.1 L (0.0-2.0) mmol/L Sodium 183.0 H* (132-148) mmol/L Chloride 121.0 H (98-107) mmol/L Glucose 118 H (75-110) mg/dL Lactate 3.8 H (0.7-2.1) mmol/L FiO2 21.0 % Blood Gas Comments Vbg Crit Value Called To Dr maria dolores cortes Crit Value Called By 162 Crit Value Read Back Y Blood Gas Notified Time 2141 Potassium (3.6-5.0) MMOL/L Carbon Dioxide (22-30) mmol/L Anion Gap (10-20) BUN (9-20) mg/dl Creatinine (0.8-1.5) mg/dL Est GFR ( Amer) Est GFR (Non-Af Amer) POC Glucose (mg/dL) 123 H (65-110) mg/dL Random Glucose (75-110) mg/dL Calcium (8.4-10.2) mg/dL Magnesium (1.6-2.3) MG/DL Total Bilirubin (0.2-1.3) mg/dl AST (17-59) U/L ALT (21-72) U/L Alkaline Phosphatase (38-126) U/L Total Protein (6.3-8.2) G/DL Albumin (3.5-5.0) g/dL Globulin (2.2-3.9) gm/dL Albumin/Globulin Ratio (1.0-2.1) Triglycerides (0-149) mg/DL Cholesterol (0-199) mg/dL LDL Cholesterol Direct (0-129) mg/dL HDL Cholesterol (30-70) MG/DL Lipase (23-300) U/L Urine Color (YELLOW) Urine Clarity (Clear) Urine pH (5.0-8.0) Ur Specific [place] (1.003-1.030) Urine Protein (NEGATIVE) mg/dL Urine Glucose (UA) (Normal) mg/dL Urine Ketones (NEGATIVE) mg/dL Urine Blood (NEGATIVE) Urine Nitrate (NEGATIVE) Urine Bilirubin (NEGATIVE) Urine Urobilinogen (0.2-1.0) mg/dL Ur Leukocyte Esterase (Negative) Carol/uL Urine RBC (Auto) (0-3) /hpf Urine Microscopic WBC (0-5) /hpf Ur Squamous Epith Cells (0-5) /hpf Laboratory Results - last 24 hr 10/03/16 10/03/16 10/04/16 21:45 22:54 04:25 WBC 22.5 H RBC 4.19 L Hgb 11.1 L D Hct 34.3 L MCV 81.8 MCH 26.4 L MCHC 32.3 L RDW 14.1 Plt Count 122 L D MPV 9.9 Neut % (Auto) 92.7 H Lymph % (Auto) 1.5 L [place] % (Auto) 5.7 Eos % (Auto) 0.0 Baso % (Auto) 0.1 Neut # 20.9 H Lymph # 0.3 L [place] # 1.3 H Eos # 0.0 Baso # 0.0 Neutrophils % (Manual) 94 H Lymphocytes % (Manual) 1 L Monocytes % (Manual) 5 Platelet Estimate Slightly decreased L Anisocytosis (manual) Slight pO2 24 L VBG pH 7.43 VBG pCO2 36 L VBG HCO3 23.4 VBG Total CO2 25.0 VBG O2 Sat (Calc) 52.6 VBG Base Excess -0.1 L Sodium 183.0 H* Chloride 121.0 H Glucose 118 H Lactate 3.8 H FiO2 21.0 Blood Gas Comments Vbg Crit Value Called To Dr maria dolores cortes Crit Value Called By 162 Crit Value Read Back Y Blood Gas Notified Time 2149 Potassium Carbon Dioxide Anion Gap BUN Creatinine Est GFR ( Amer) Est GFR (Non-Af Amer) POC Glucose (mg/dL) 123 H Random Glucose Calcium Magnesium Total Bilirubin AST ALT Alkaline Phosphatase Total Protein Albumin Globulin Albumin/Globulin Ratio Triglycerides Cholesterol LDL Cholesterol Direct HDL Cholesterol Lipase Urine Color Urine Clarity Urine pH Ur Specific [place] Urine Protein Urine Glucose (UA) Urine Ketones Urine Blood Urine Nitrate Urine Bilirubin Urine Urobilinogen Ur Leukocyte Esterase Urine RBC (Auto) Urine Microscopic WBC Ur Squamous Epith Cells 10/04/16 10/04/16 10/04/16 04:25 04:30 05:27 WBC RBC Hgb Hct MCV MCH MCHC RDW Plt Count MPV Neut % (Auto) Lymph % (Auto) [place] % (Auto) Eos % (Auto) Baso % (Auto) Neut # Lymph # [place] # Eos # Baso # Neutrophils % (Manual) Lymphocytes % (Manual) Monocytes % (Manual) Platelet Estimate Anisocytosis (manual) pO2 VBG pH VBG pCO2 VBG HCO3 VBG Total CO2 VBG O2 Sat (Calc) VBG Base Excess Sodium 137 Chloride 107 Glucose Lactate FiO2 Blood Gas Comments Crit Value Called To Crit Value Called By Crit Value Read Back Blood Gas Notified Time Potassium 3.8 Carbon Dioxide 23 Anion Gap 11 BUN 25 H Creatinine 1.0 Est GFR ( Amer) > 60 Est GFR (Non-Af Amer) > 60 POC Glucose (mg/dL) 113 H Random Glucose 111 H Calcium 8.3 L Magnesium 1.5 L Total Bilirubin 3.3 H AST 296 H D ALT 349 H D Alkaline Phosphatase 108 Total Protein 5.9 L Albumin 3.2 L D Globulin 2.7 Albumin/Globulin Ratio 1.2 Triglycerides 53 D 53 Cholesterol 127 126 LDL Cholesterol Direct 80 86 HDL Cholesterol 29 L 27 L Lipase 3990 H Urine Color Urine Clarity Urine pH Ur Specific [place] Urine Protein Urine Glucose (UA) Urine Ketones Urine Blood Urine Nitrate Urine Bilirubin Urine Urobilinogen Ur Leukocyte Esterase Urine RBC (Auto) Urine Microscopic WBC Ur Squamous Epith Cells 10/04/16 10/04/16 08:20 11:04 WBC RBC Hgb Hct MCV MCH MCHC RDW Plt Count MPV Neut % (Auto) Lymph % (Auto) [place] % (Auto) Eos % (Auto) Baso % (Auto) Neut # Lymph # [place] # Eos # Baso # Neutrophils % (Manual) Lymphocytes % (Manual) Monocytes % (Manual) Platelet Estimate Anisocytosis (manual) pO2 VBG pH VBG pCO2 VBG HCO3 VBG Total CO2 VBG O2 Sat (Calc) VBG Base Excess Sodium Chloride Glucose Lactate FiO2 Blood Gas Comments Crit Value Called To Crit Value Called By Crit Value Read Back Blood Gas Notified Time Potassium Carbon Dioxide Anion Gap BUN Creatinine Est GFR ( Amer) Est GFR (Non-Af Amer) POC Glucose (mg/dL) 107 Random Glucose Calcium Magnesium Total Bilirubin AST ALT Alkaline Phosphatase Total Protein Albumin Globulin Albumin/Globulin Ratio Triglycerides Cholesterol LDL Cholesterol Direct HDL Cholesterol Lipase Urine Color Yellow Urine Clarity Clear Urine pH 6.0 Ur Specific [place] 1.013 Urine Protein Negative Urine Glucose (UA) Neg Urine Ketones Negative Urine Blood Negative Urine Nitrate Negative Urine Bilirubin Negative Urine Urobilinogen 0.2-1.0 Ur Leukocyte Esterase Neg Urine RBC (Auto) 3 Urine Microscopic WBC < 1 Ur Squamous Epith Cells < 1 EKG/Cardiology Studies: Cardiology / EKG Studies 10/04/16 EKG [ELECTROCARDIOGRAM] Routine Comment: Mode Of Transportation: Reason For Exam: htn Isolation: Contact Attending/Attestation - Attestation I have personally seen and examined this patient.: Yes I have fully participated in the care of the patient.: Yes I have reviewed all pertinent clinical information: Yes Notes (Text): 10/04/16 13:17 I have seen and examined the patient. Medical records, lab studies, and imaging were reviewed by me and a management plan was formulated on multidisciplinary rounds with resident Dr. Song. I agree with their above documented assessment and plan. MRCP shows evidence of cholecystitis, surgery consulted. Patient also most likely has gallstone pancreatitis. Will need cholecystectomy, early intervention recommended. Patient will also need ERCP if pancreatitis does not improve or stone doesn't pass spontaneously, GI possibly scheduling for tomorrow. Critical Care Time 35 minutes. Multi-disciplinary rounds were performed with house staff, nursing, speech therapy, respiratory therapy, pharmacy and nutrition with integrated input from the primary team/attending and other consulting services. The documented time is cumulative and includes review of patient data/exams/labs/chart review and examination of the patient on rounds and throughout the day; time is exclusive of any procedures or teaching time. 10/04/16 13:20
[2016-10-04] MEDS ORDERED: Pneumococcal 23-Valent Vaccine IM ONE (08:00)
[2016-10-04] MEDS: Enoxaparin 40 mg Syringe SC SCH (08:20)
[2016-10-04 08:52] LABS: RBC URINE 3 /hpf (0-3); URINE BILIRUBIN NEGATIVE (NEGATIVE); URINE BLOOD NEGATIVE (NEGATIVE); URINE COLOR YELLOW (YELLOW); URINE GLUCOSE (UA) NEG (Normal); URINE KETONE NEGATIVE (NEGATIVE); URINE LEUKOCYTE ESTERASE NEG Leu/uL (Negative); URINE PROTEIN NEGATIVE (NEGATIVE); URINE UROBILINOGEN 0.2-1.0 mg/dL (0.2-1.0); WBC URINE < 1 /hpf (0-5)
[2016-10-04] MEDS ORDERED: Cefepime 1 GM in Sodium Chloride 0.9% 100 ML IVPB SCH (09:00)
--- NOTE | 2016-10-04 10:26 | MRI ---
PROCEDURE: Magnetic Resonance Cholangiopancreatography HISTORY: COMPARISON: 10/03/16 ct abdominal. TECHNIQUE: Multiplanar, multisequence MR images of the abdomen were obtained, including heavily T2 weighted MRCP images of the biliary system. Rotating maximum intensity projection images of the biliary system were generated. FINDINGS: MRCP: The common bile duct is of a normal caliber. No evidence of choledocholithiasis. No intrahepatic biliary ductal dilatation. LIVER: Unremarkable. GALLBLADDER: There is cholelithiasis with pericholecystic fluid and edema tracking into the boom hepatis. Findings are suspicious for acute cholecystitis.. SPLEEN: Unremarkable. PANCREAS: Unremarkable. ADRENALS: Unremarkable. KIDNEYS: Unremarkable. AORTA: No aneurysm. ASCITES: None. OTHER FINDINGS: 2.5 centimeter duodenal diverticulum. IMPRESSION: There is cholelithiasis with pericholecystic fluid and edema tracking into the boom hepatis. Findings are suspicious for acute cholecystitis..No evidence of choledocholithiasis. Pancreatitis of the pancreatic head is not excluded.
--- NOTE | 2016-10-04 11:16 | RAD ---
HISTORY: pancreatitis and fluid overload COMPARISON: 04/22/2015 FINDINGS: LUNGS: No active pulmonary disease. PLEURA: No significant pleural effusion identified, no pneumothorax apparent. CARDIOVASCULAR: No radiographic findings to suggest acute or significant cardiovascular disease. OSSEOUS STRUCTURES: No significant abnormalities. VISUALIZED UPPER ABDOMEN: Normal. OTHER FINDINGS: None. IMPRESSION: No active disease. No significant interval change compared to the prior examination(s).
--- NOTE | 2016-10-04 11:42 | CP.PCM.CON ---
History of Present Illness - History of Present Illness History of Present Illness: Infectious Disease Consult Note- asked to see this patient at the request of for rule out sepsis HPI- Patient is a 86 year old male with pmh OF DM II, HTN, Hyperlipidemia who presented with acute onset of midepigastric pain radiating to right upper abdomen along with fever and . pt. states the pain started suddenly yesterday and it was different than the regular gastritis pain that he has experienced in the past. He denies any change in his diet abut as per pt's daughter and son who are at his bedside currently he has had reduced appetite for the past month with 5 pound weight loss. He denies any nausea or vomiting,denies any diarrhea and denies any dysurea, denies any recent travel In the ER pt was admitted for acute pancreatitis with elevated lipase of 30,358 and CTA/P wo contrast showing gallstones, pancreatitis and Abdominal US showing CBC 4mm and cholelithiasis. Pt. report he feels better today compared to yesterday after IVF and IV abx and pain medication. patient's also mentions that he has had lesion on his left middle digit for past 3 months and it starts as blister and he bites on it and then has developed into black scar, he sattes he went to another hospital few weeks ago for it and he was given oral antibiotics which he did not complete. PmHx: As stated in HPI PsHx; Umbilical hernia repair SHx: Former smoker quit 40yrs ago, social alcohol in the past FHx: None reported Review of Systems - Review of Systems Review of Systems: ROS- denies any fever or chills now but had it yesterday upon presentation, denies any GUNDERSON, denies any sob, + dry cough, denies any chest pain. 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 - HEENT Hx HEENT Problems: No - RENAL Hx Chronic Kidney Disease: No - ENDOCRINE/METABOLIC Hx Endocrine Disorders: Yes Hx Diabetes Mellitus Type 2: Yes - HEMATOLOGICAL/ONCOLOGICAL Hx Blood Disorders: No - INTEGUMENTARY Hx Dermatological Problems: No - MUSCULOSKELETAL/RHEUMATOLOGICAL Hx Musculoskeletal Disorders: No Hx Falls: No - GASTROINTESTINAL Hx Gastrointestinal Disorders: No - GENITOURINARY/GYNECOLOGICAL Hx Genitourinary Disorders: No - PSYCHIATRIC Hx Psychophysiologic Disorder: No Hx Substance Use: No - SURGICAL HISTORY Hx Surgeries: Yes Hx Herniorrhaphy: Yes - ANESTHESIA Hx Anesthesia: No Hx Anesthesia Reactions: No Hx Malignant Hyperthermia: No Has any member of the family had a problem w/ anesthesia?: No Meds Allergies/Adverse Reactions: Allergies Allergy/AdvReac Type Severity Reaction Status Date / Time Penicillins Allergy Mild RASH Verified 04/22/15 13:07 - Medications Medications: Current Medications Acetaminophen (Tylenol 650 Mg Supp) 650 mg DE Q6 PRN PRN Reason: Fever >100.4 F Last Admin: 10/04/16 03:20 Dose: 650 mg Dextrose (Dextrose 50% Inj) 0 ml IV STAT PRN; Protocol PRN Reason: Hyglycemia Protocol Dextrose (Glutose 15) 0 gm PO ONCE PRN; Protocol PRN Reason: Hypoglycemia Protocol Enoxaparin Sodium (Lovenox) 40 mg SC DAILY SUDHA PRN Reason: Protocol Last Admin: 10/04/16 08:20 Dose: 40 mg Famotidine (Pepcid) 20 mg IVP DAILY [facility] Last Admin: 10/04/16 08:20 Dose: 20 mg Glucagon (Glucagen Diagnostic Kit) 0 mg IM STAT PRN; Protocol PRN Reason: Hypoglycemia Protocol Hydromorphone HCl (Dilaudid) 0.5 mg IVP RQ4PRN PRN PRN Reason: Pain, severe (8-10) Last Admin: 10/04/16 03:02 Dose: 0.5 mg Lactated Ringer's (Lactated Ringer's) 1,000 mls @ 1,000 mls/hr IV .Q1H SUDHA Last Admin: 10/03/16 19:18 Dose: 1,000 mls/hr Lactated Ringer's (Lactated Ringer's) 1,000 mls @ 1,000 mls/hr IV .Q1H SUDHA Last Admin: 10/03/16 20:53 Dose: 1,000 mls/hr Sodium Chloride (Sodium Chloride 0.9%) 1,000 mls @ 150 mls/hr IV .Q6H40M [facility] Stop: 10/04/16 21:14 Last Admin: 10/04/16 02:48 Dose: 150 mls/hr Cefepime HCl 1 gm/ Sodium (Chloride) 100 mls @ 100 mls/hr IVPB Q8 SUDHA Last Admin: 10/04/16 08:21 Dose: 100 mls/hr Lactated Ringer's (Lactated Ringer's) 1,000 mls @ 200 mls/hr IV .Q5H [facility] Insulin Human Regular (Humulin R) 0 units SC ACHS SUDHA PRN Reason: Protocol Last Admin: 10/04/16 11:06 Dose: Not Given Ondansetron HCl (Zofran Inj) 4 mg IVP Q6 PRN PRN Reason: Nausea/Vomiting Physical Exam - Constitutional Appears: No Acute Distress - Head Exam Head Exam: ATRAUMATIC - Eye Exam Eye Exam: EOMI, PERRL - ENT Exam ENT Exam: Normal Oropharynx - Neck Exam Neck exam: Positive for: Full Rom - Respiratory Exam Respiratory Exam: Clear to Auscultation Bilateral, NORMAL BREATHING PATTERN - Cardiovascular Exam Cardiovascular Exam: RRR, +S1, +S2 - GI/Abdominal Exam GI & Abdominal Exam: Normal Bowel Sounds, Soft Additional comments: No distention + tenderness with palpation of the midepigastric region and RUQ region with minimal guarding No rebound No CVA tenderness B/l - Extremities Exam Additional comments: left middle dip phalanx region with small ulcer with eschar formation, no malodor, no active discharge no ulcers in the feet b/l no edema b/l LE - Neurological Exam Neurological exam: Alert, Oriented x3 Results - Vital Signs Recent Vital Signs: Last Vital Signs Temp 98.3 F 10/04/16 07:34 Pulse 70 10/04/16 11:00 Resp 21 10/04/16 11:00 BP 131/65 10/04/16 11:00 Pulse Ox 95 10/04/16 11:00 - Labs Result Diagrams: 10/04/16 04:25 10/04/16 04:25 Labs: Laboratory Results - last 24 hr 10/03/16 10/03/16 10/04/16 21:45 22:54 04:25 WBC 22.5 H RBC 4.19 L Hgb 11.1 L D Hct 34.3 L MCV 81.8 MCH 26.4 L MCHC 32.3 L RDW 14.1 Plt Count 122 L D MPV 9.9 Neut % (Auto) 92.7 H Lymph % (Auto) 1.5 L Ford % (Auto) 5.7 Eos % (Auto) 0.0 Baso % (Auto) 0.1 Neut # 20.9 H Lymph # 0.3 L [place] # 1.3 H Eos # 0.0 Baso # 0.0 Neutrophils % (Manual) 94 H Lymphocytes % (Manual) 1 L Monocytes % (Manual) 5 Platelet Estimate Slightly decreased L Anisocytosis (manual) Slight pO2 24 L VBG pH 7.43 VBG pCO2 36 L VBG HCO3 23.4 VBG Total CO2 25.0 VBG O2 Sat (Calc) 52.6 VBG Base Excess -0.1 L Sodium 183.0 H* Chloride 121.0 H Glucose 118 H Lactate 3.8 H FiO2 21.0 Blood Gas Comments Vbg Crit Value Called To Dr maria dolores cortes Crit Value Called By 162 Crit Value Read Back Y Blood Gas Notified Time 2148 Potassium Carbon Dioxide Anion Gap BUN Creatinine Est GFR ( Amer) Est GFR (Non-Af Amer) POC Glucose (mg/dL) 123 H Random Glucose Calcium Magnesium Total Bilirubin AST ALT Alkaline Phosphatase Total Protein Albumin Globulin Albumin/Globulin Ratio Triglycerides Cholesterol LDL Cholesterol Direct HDL Cholesterol Lipase Urine Color Urine Clarity Urine pH Ur Specific [place] Urine Protein Urine Glucose (UA) Urine Ketones Urine Blood Urine Nitrate Urine Bilirubin Urine Urobilinogen Ur Leukocyte Esterase Urine RBC (Auto) Urine Microscopic WBC Ur Squamous Epith Cells 10/04/16 10/04/16 10/04/16 04:25 05:27 08:20 WBC RBC Hgb Hct MCV MCH MCHC RDW Plt Count MPV Neut % (Auto) Lymph % (Auto) [place] % (Auto) Eos % (Auto) Baso % (Auto) Neut # Lymph # [place] # Eos # Baso # Neutrophils % (Manual) Lymphocytes % (Manual) Monocytes % (Manual) Platelet Estimate Anisocytosis (manual) pO2 VBG pH VBG pCO2 VBG HCO3 VBG Total CO2 VBG O2 Sat (Calc) VBG Base Excess Sodium 137 Chloride 107 Glucose Lactate FiO2 Blood Gas Comments Crit Value Called To Crit Value Called By Crit Value Read Back Blood Gas Notified Time Potassium 3.8 Carbon Dioxide 23 Anion Gap 11 BUN 25 H Creatinine 1.0 Est GFR ( Amer) > 60 Est GFR (Non-Af Amer) > 60 POC Glucose (mg/dL) 113 H Random Glucose 111 H Calcium 8.3 L Magnesium 1.5 L Total Bilirubin 3.3 H AST 296 H D ALT 349 H D Alkaline Phosphatase 108 Total Protein 5.9 L Albumin 3.2 L D Globulin 2.7 Albumin/Globulin Ratio 1.2 Triglycerides 53 D Cholesterol 127 LDL Cholesterol Direct 80 HDL Cholesterol 29 L Lipase 3990 H Urine Color Yellow Urine Clarity Clear Urine pH 6.0 Ur Specific [place] 1.013 Urine Protein Negative Urine Glucose (UA) Neg Urine Ketones Negative Urine Blood Negative Urine Nitrate Negative Urine Bilirubin Negative Urine Urobilinogen 0.2-1.0 Ur Leukocyte Esterase Neg Urine RBC (Auto) 3 Urine Microscopic WBC < 1 Ur Squamous Epith Cells < 1 10/04/16 11:04 WBC RBC Hgb Hct MCV MCH MCHC RDW Plt Count MPV Neut % (Auto) Lymph % (Auto) [place] % (Auto) Eos % (Auto) Baso % (Auto) Neut # Lymph # [place] # Eos # Baso # Neutrophils % (Manual) Lymphocytes % (Manual) Monocytes % (Manual) Platelet Estimate Anisocytosis (manual) pO2 VBG pH VBG pCO2 VBG HCO3 VBG Total CO2 VBG O2 Sat (Calc) VBG Base Excess Sodium Chloride Glucose Lactate FiO2 Blood Gas Comments Crit Value Called To Crit Value Called By Crit Value Read Back Blood Gas Notified Time Potassium Carbon Dioxide Anion Gap BUN Creatinine Est GFR ( Amer) Est GFR (Non-Af Amer) POC Glucose (mg/dL) 107 Random Glucose Calcium Magnesium Total Bilirubin AST ALT Alkaline Phosphatase Total Protein Albumin Globulin Albumin/Globulin Ratio Triglycerides Cholesterol LDL Cholesterol Direct HDL Cholesterol Lipase Urine Color Urine Clarity Urine pH Ur Specific [place] Urine Protein Urine Glucose (UA) Urine Ketones Urine Blood Urine Nitrate Urine Bilirubin Urine Urobilinogen Ur Leukocyte Esterase Urine RBC (Auto) Urine Microscopic WBC Ur Squamous Epith Cells Laboratory Results - last 72 hr 10/03/16 10/03/16 10/03/16 17:20 17:20 17:20 WBC 17.4 H D RBC 5.02 Hgb 13.5 Hct 41.7 MCV 83.0 D MCH 26.9 L MCHC 32.4 L RDW 14.6 H Plt Count 152 MPV 9.5 Neut % (Auto) 95.7 H Lymph % (Auto) 2.4 L [place] % (Auto) 1.7 Eos % (Auto) 0.0 Baso % (Auto) 0.2 Neut # 16.7 H Lymph # 0.4 L [place] # 0.3 Eos # 0.0 Baso # 0.0 Neutrophils % (Manual) 86 H Band Neutrophils % 4 H Lymphocytes % (Manual) 5 L Reactive Lymphs % 1 H Monocytes % (Manual) 4 Platelet Estimate Normal Large Platelets Present Anisocytosis (manual) Slight PT 11.3 INR 1.1 APTT 29.2 pO2 VBG pH VBG pCO2 VBG HCO3 VBG Total CO2 VBG O2 Sat (Calc) VBG Base Excess Glucose Lactate FiO2 Blood Gas Comments Crit Value Called To Crit Value Called By Crit Value Read Back Blood Gas Notified Time Sodium 139 Potassium 4.0 Chloride 102 Carbon Dioxide 23 Anion Gap 17 BUN 34 H Creatinine 1.0 Est GFR ( Amer) > 60 Est GFR (Non-Af Amer) > 60 POC Glucose (mg/dL) Random Glucose 140 H Calcium 9.5 Magnesium Total Bilirubin 1.3 AST 207 H D ALT 156 H D Alkaline Phosphatase 128 H D Total Protein 7.8 Albumin 4.6 Globulin 3.2 Albumin/Globulin Ratio 1.4 Triglycerides Cholesterol LDL Cholesterol Direct HDL Cholesterol Lipase 46353 H Urine Color Urine Clarity Urine pH Ur Specific [place] Urine Protein Urine Glucose (UA) Urine Ketones Urine Blood Urine Nitrate Urine Bilirubin Urine Urobilinogen Ur Leukocyte Esterase Urine RBC (Auto) Urine Microscopic WBC Ur Squamous Epith Cells 10/03/16 10/03/16 10/03/16 17:50 21:45 22:54 WBC RBC Hgb Hct MCV MCH MCHC RDW Plt Count MPV Neut % (Auto) Lymph % (Auto) [place] % (Auto) Eos % (Auto) Baso % (Auto) Neut # Lymph # [place] # Eos # Baso # Neutrophils % (Manual) Band Neutrophils % Lymphocytes % (Manual) Reactive Lymphs % Monocytes % (Manual) Platelet Estimate Large Platelets Anisocytosis (manual) PT INR APTT pO2 20 L 24 L VBG pH 7.34 7.43 VBG pCO2 45 36 L VBG HCO3 21.7 23.4 VBG Total CO2 25.7 25.0 VBG O2 Sat (Calc) 31.1 L 52.6 VBG Base Excess -1.7 L -0.1 L Glucose 132 H 118 H Lactate 2.6 H 3.8 H FiO2 21.0 21.0 Blood Gas Comments Vbg Vbg Crit Value Called To Dr maria dolores cortes Crit Value Called By 162 162 Crit Value Read Back Y Y Blood Gas Notified Time 1754 2149 Sodium 185.0 H* 183.0 H* Potassium Chloride 121.0 H 121.0 H Carbon Dioxide Anion Gap BUN Creatinine Est GFR ( Amer) Est GFR (Non-Af Amer) POC Glucose (mg/dL) 123 H Random Glucose Calcium Magnesium Total Bilirubin AST ALT Alkaline Phosphatase Total Protein Albumin Globulin Albumin/Globulin Ratio Triglycerides Cholesterol LDL Cholesterol Direct HDL Cholesterol Lipase Urine Color Urine Clarity Urine pH Ur Specific [place] Urine Protein Urine Glucose (UA) Urine Ketones Urine Blood Urine Nitrate Urine Bilirubin Urine Urobilinogen Ur Leukocyte Esterase Urine RBC (Auto) Urine Microscopic WBC Ur Squamous Epith Cells 10/04/16 10/04/16 10/04/16 04:25 04:25 04:30 WBC 22.5 H RBC 4.19 L Hgb 11.1 L D Hct 34.3 L MCV 81.8 MCH 26.4 L MCHC 32.3 L RDW 14.1 Plt Count 122 L D MPV 9.9 Neut % (Auto) 92.7 H Lymph % (Auto) 1.5 L [place] % (Auto) 5.7 Eos % (Auto) 0.0 Baso % (Auto) 0.1 Neut # 20.9 H Lymph # 0.3 L [place] # 1.3 H Eos # 0.0 Baso # 0.0 Neutrophils % (Manual) 94 H Band Neutrophils % Lymphocytes % (Manual) 1 L Reactive Lymphs % Monocytes % (Manual) 5 Platelet Estimate Slightly decreased L Large Platelets Anisocytosis (manual) Slight PT INR APTT pO2 VBG pH VBG pCO2 VBG HCO3 VBG Total CO2 VBG O2 Sat (Calc) VBG Base Excess Glucose Lactate FiO2 Blood Gas Comments Crit Value Called To Crit Value Called By Crit Value Read Back Blood Gas Notified Time Sodium 137 Potassium 3.8 Chloride 107 Carbon Dioxide 23 Anion Gap 11 BUN 25 H Creatinine 1.0 Est GFR ( Amer) > 60 Est GFR (Non-Af Amer) > 60 POC Glucose (mg/dL) Random Glucose 111 H Calcium 8.3 L Magnesium 1.5 L Total Bilirubin 3.3 H AST 296 H D ALT 349 H D Alkaline Phosphatase 108 Total Protein 5.9 L Albumin 3.2 L D Globulin 2.7 Albumin/Globulin Ratio 1.2 Triglycerides 53 D 53 Cholesterol 127 126 LDL Cholesterol Direct 80 86 HDL Cholesterol 29 L 27 L Lipase 3990 H Urine Color Urine Clarity Urine pH Ur Specific [place] Urine Protein Urine Glucose (UA) Urine Ketones Urine Blood Urine Nitrate Urine Bilirubin Urine Urobilinogen Ur Leukocyte Esterase Urine RBC (Auto) Urine Microscopic WBC Ur Squamous Epith Cells 10/04/16 10/04/16 10/04/16 05:27 08:20 11:04 WBC RBC Hgb Hct MCV MCH MCHC RDW Plt Count MPV Neut % (Auto) Lymph % (Auto) [place] % (Auto) Eos % (Auto) Baso % (Auto) Neut # Lymph # [place] # Eos # Baso # Neutrophils % (Manual) Band Neutrophils % Lymphocytes % (Manual) Reactive Lymphs % Monocytes % (Manual) Platelet Estimate Large Platelets Anisocytosis (manual) PT INR APTT pO2 VBG pH VBG pCO2 VBG HCO3 VBG Total CO2 VBG O2 Sat (Calc) VBG Base Excess Glucose Lactate FiO2 Blood Gas Comments Crit Value Called To Crit Value Called By Crit Value Read Back Blood Gas Notified Time Sodium Potassium Chloride Carbon Dioxide Anion Gap BUN Creatinine Est GFR ( Amer) Est GFR (Non-Af Amer) POC Glucose (mg/dL) 113 H 107 Random Glucose Calcium Magnesium Total Bilirubin AST ALT Alkaline Phosphatase Total Protein Albumin Globulin Albumin/Globulin Ratio Triglycerides Cholesterol LDL Cholesterol Direct HDL Cholesterol Lipase Urine Color Yellow Urine Clarity Clear Urine pH 6.0 Ur Specific [place] 1.013 Urine Protein Negative Urine Glucose (UA) Neg Urine Ketones Negative Urine Blood Negative Urine Nitrate Negative Urine Bilirubin Negative Urine Urobilinogen 0.2-1.0 Ur Leukocyte Esterase Neg Urine RBC (Auto) 3 Urine Microscopic WBC < 1 Ur Squamous Epith Cells < 1 Accession No. : [id number] Patient Name / ID : YADIRA ALFONSO / [id number] Exam Date : 10/03/2016 18:41:52 ( Approved ) Study Comment : Sex / Age : M / 86Y Creator : MAITE TURNER Dictator : Shield Cleaner : Ticket Collector Or Usher : MARILUZ TURNERY Approver2 : Report Date : 10/03/2016 19:41:00 My Comment : [facility] Division of Radiology [address] [address] Tel. no. Patient Name: KADEN MAY Pt. Address: [address] [place] [address] Rec #: [id number] [place] [address]: Elvira MIMS,Maria Dolores Shay Pt HOME Order Location: [facility] : 1930 Male Age: 86 Order #: [id number] Reason for exam: R sided abd pain, fever CT Scan ABD PELVIS W/O PO OR IV CONT Exam Date: 10/03/16 This imaging exam was performed at [facility] EXAM: CT Abdomen and Pelvis Without Intravenous Contrast CLINICAL HISTORY: 86 years old, male; Pain; Abdominal pain; Localized; Right upper quadrant (ruq); Patient HX: Pat C/O of rt side abd pain radiating to upper abdomen associated with chills ongoing to 2 hours; Additional info: R sided abd pain, fever TECHNIQUE: Axial computed tomography images of the abdomen and pelvis without intravenous contrast. This CT exam was performed using one or more of the following dose reduction techniques: automated exposure control, adjustment of the mA and/or kV according to patient size, and/or use of iterative reconstruction technique. Coronal and sagittal reformatted images were created and reviewed. EXAM DATE/TIME: 10/03/2016 6:14 PM COMPARISON: There are no prior studies for comparison. FINDINGS: Artifacts: Motion artifact degrades image quality. Streak artifact degrades image quality. Lower thorax: The heart is mildly enlarged. There are coronary calcifications. There is a hiatal hernia. There is minimal atelectasis at the lung bases ABDOMEN: Liver: unremarkable Gallbladder and bile ducts: Gallbladder is distended. There are small stones. Common duct is prominent. Pancreas: There is mild prominence of the pancreatic head. There is minimal edema about the pancreatic head. Pancreatic tail and body are unremarkable. Distal pancreatic duct is prominent, 5.5 mm in diameter. Spleen: unremarkable Adrenals: unremarkable Kidneys and ureters: unremarkable Stomach and bowel: Stomach is partially distended. There is mild antral and duodenal wall thickening. There is a moderately large duodenal diverticulum Rotation is normal. There are mildly distended jejunal loops in the left upper quadrant. There is no small bowel obstruction. Appendix and terminal ileum are unremarkable. There is moderate stool in the colon. There is scattered diverticulosis Appendix: See above. PELVIS: Bladder: Bladder is partially distended. There is mild bladder wall thickening. Reproductive: Prostate is enlarged. Seminal vesicles are unremarkable. ABDOMEN and PELVIS: Intraperitoneal space: No air-fluid Bones/joints: There are degenerative changes in the osseus structures. There is partial ankylosis of the sacroiliac joints. There is L5 spondylolysis with spondylolisthesis. There is degenerative disc disease L5-S1 with disc bulging. Soft tissues: There are bilateral fat-containing inguinal hernias. Vasculature: There are vascular calcifications. Lymph nodes: There is shotty upper para-aortic adenopathy. IMPRESSION: Prominence of the pancreatic head with adjacent inflammatory change and mild ductal dilatation, findings suggest pancreatitis, underlying neoplasm cannot be excluded; gallstone; no renal or ureteral stones or hydronephrosis; no CT findings of appendicitis or diverticulitis Additional findings as described above. Dictated By: Maite Turner MD, MD Dictated Date/Time: 10/03/161940 Signed By: Maite Turner MD Date Signed: 1938 Transcribed By: FAYE Transcribe Date/Time : 10/03/161940 WILEY/FAYE Accession No. : [id number] Patient Name / ID : YADIRA ALFONSO / [id number] Exam Date : 10/03/2016 21:35:33 ( Approved ) Study Comment : Sex / Age : M / 86Y Creator : Bandar Thakur MD Dictator : Bandar Thakur MD Shield Cleaner : Ticket Collector Or Usher : Bandar Thakur MD Approver2 : Report Date : 10/04/2016 11:14:56 My Comment : HISTORY: pancreatitis and fluid overload COMPARISON: 04/22/2015 FINDINGS: LUNGS: No active pulmonary disease. PLEURA: No significant pleural effusion identified, no pneumothorax apparent. CARDIOVASCULAR: No radiographic findings to suggest acute or significant cardiovascular disease. OSSEOUS STRUCTURES: No significant abnormalities. VISUALIZED UPPER ABDOMEN: Normal. OTHER FINDINGS: None. IMPRESSION: No active disease. No significant interval change compared to the prior examination(s).Accession No. : [id number] Patient Name / ID : YADIRA ALFONSO / [id number] Exam Date : 10/04/2016 09:15:40 ( Approved ) Study Comment : Sex / Age : M / 86Y Creator : Giorgio Miller MD Dictator : Giorgio Miller MD Shield Cleaner : Ticket Collector Or Usher : Giorgio Miller MD Approver2 : Report Date : 10/04/2016 10:24:28 My Comment : PROCEDURE: Magnetic Resonance Cholangiopancreatography HISTORY: COMPARISON: 10/03/16 ct abdominal. TECHNIQUE: Multiplanar, multisequence MR images of the abdomen were obtained, including heavily T2 weighted MRCP images of the biliary system. Rotating maximum intensity projection images of the biliary system were generated. FINDINGS: MRCP: The common bile duct is of a normal caliber. No evidence of choledocholithiasis. No intrahepatic biliary ductal dilatation. LIVER: Unremarkable. GALLBLADDER: There is cholelithiasis with pericholecystic fluid and edema tracking into the boom hepatis. Findings are suspicious for acute cholecystitis.. SPLEEN: Unremarkable. PANCREAS: Unremarkable. ADRENALS: Unremarkable. KIDNEYS: Unremarkable. AORTA: No aneurysm. ASCITES: None. OTHER FINDINGS: 2.5 centimeter duodenal diverticulum. IMPRESSION: There is cholelithiasis with pericholecystic fluid and edema tracking into the boom hepatis. Findings are suspicious for acute cholecystitis..No evidence of choledocholithiasis. Pancreatitis of the pancreatic head is not excluded. Assessment & Plan (1) Cholecystitis, acute Status: Acute (2) Acute pancreatitis Status: Acute (3) Leukocytosis Status: Acute (4) Fever Status: Acute - Assessment and Plan (Free Text) Assessment: A/P- 86 year old male with DM II, HTN, hyperlipidemia admitted with abd pain, fever and leukocytosis foudn to have cholecystitis and gallstome pancreatitis. currently seems to be better clinically. afebrile today. High leukocytosis present. abd CT and US and MRCP reports noted MRCP negative for Choledocholithiasis cxr- negative as per report. left middle DIP necrotic ulcer. plan- check blood cx x 2. check UA and urine cx. pt. has tolerated cefepime well so far, eventhough he says he gets rash with PCN. in light of the high wbc and cholecystitis along with patient's advanced age and pancreatitis and fever and high lactate on admission, advise to switch to meropenem for broader gram neg and anaerobic coverage. advise to also add metronidazole. advised pt. if he develops any rash or itching to immediately notify his nurse. as per GI note ERCP planned. as per surgical note cholecystectomy once pancreatitis is resolved. advise to also check ESR and MRI of the left DIP digit to rule out OM. monitor wbc, LFTs and pancreatic enzymes closely. all above d/w patient and his son and daughter who are at bedside at length and all their questions were answered and they agree with above plan of care and have full understanding of all above. Thank you for allowing me to take part in the care of this patient. ICU time spent 60 minutes.
[2016-10-04] MEDS ORDERED: Magnesium Sulfate 2 gm/50 ml 2 GM/50 ML BAG IVPB ONE (12:08)
--- NOTE | 2016-10-04 12:37 | CP.PCM.CON ---
<BenzBrigitte watt - Last Filed: 10/04/16 12:30> History of Present Illness - History of Present Illness History of Present Illness: General Surgery - Dr. Overton 86 yo M w/ hx of HTN, DM, presented to ED yesterday w/ RUQ abdominal pain that started a few hours prior to arrival. Workup in the ED found pt to have acute gallstone pancreatitis. He was admitted to the ICU last night and started on IVF/Abx/Pain medications. Pt describes the current pain as sudden onset of 7-8/ 10 RUQ pain which has improved somewhat since admission to the hospital and pain medications. He has never had this pain before. It radiates to the center of the abdomen and to the back. He had associated nausea, and fever/ chills. Pt also admits that for the past 3 weeks he has had poor appetite and intermittent mild discomfort with nausea. He lost ~5lbs in the past 3 weeks per daughter. No vomiting, diarrhea, constipation, dysuria, hematuria. PMH: Dm, HTN, Carotid stenosis PSH: Umbilical hernia repair in Meds as per chart Allergic to PCN U/S on admission showed gallstones, CBD 4mm, no other significant findings MRCP done this morning shows gallstones, pericholecystic fluid, no choledocholithiasis, evidence of pancreatitis in the pancreatic head, and a 2.5cm duodenal diverticulum Review of Systems - Review of Systems All systems: reviewed and no additional remarkable complaints except (as per HPI ) Past Patient History - Past Medical History & Family History Past Medical History?: Yes - Past Social History Smoking Status: Former Smoker Chewing Tobacco Use: No Cigar Use: No - CARDIAC Hx Cardiac Disorders: Yes Hx Hypertension: Yes - PULMONARY Hx Respiratory Disorders: No - NEUROLOGICAL Hx Neurological Disorder: No Other/Comment: 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 - HEENT Hx HEENT Problems: No - RENAL Hx Chronic Kidney Disease: No - ENDOCRINE/METABOLIC Hx Endocrine Disorders: Yes Hx Diabetes Mellitus Type 2: Yes - HEMATOLOGICAL/ONCOLOGICAL Hx Blood Disorders: No Hx AIDS: No Hx Human Immunodeficiency Virus (HIV): No - INTEGUMENTARY Hx Dermatological Problems: No - MUSCULOSKELETAL/RHEUMATOLOGICAL Hx Musculoskeletal Disorders: No Hx Falls: No - GASTROINTESTINAL Hx Gastrointestinal Disorders: No - GENITOURINARY/GYNECOLOGICAL Hx Genitourinary Disorders: No - PSYCHIATRIC Hx Psychophysiologic Disorder: No Hx Substance Use: No - SURGICAL HISTORY Hx Surgeries: Yes Hx Herniorrhaphy: Yes - ANESTHESIA Hx Anesthesia: No Hx Anesthesia Reactions: No Hx Malignant Hyperthermia: No Has any member of the family had a problem w/ anesthesia?: No Meds Allergies/Adverse Reactions: Allergies Allergy/AdvReac Type Severity Reaction Status Date / Time Penicillins Allergy Mild RASH Verified 04/22/15 13:07 - Medications Medications: Current Medications Acetaminophen (Tylenol 650 Mg Supp) 650 mg MS Q6 PRN PRN Reason: Fever >100.4 F Last Admin: 10/04/16 03:20 Dose: 650 mg Dextrose (Dextrose 50% Inj) 0 ml IV STAT PRN; Protocol PRN Reason: Hyglycemia Protocol Dextrose (Glutose 15) 0 gm PO ONCE PRN; Protocol PRN Reason: Hypoglycemia Protocol Enoxaparin Sodium (Lovenox) 40 mg SC DAILY [facility]UDHA PRN Reason: Protocol Last Admin: 10/04/16 08:20 Dose: 40 mg Famotidine (Pepcid) 20 mg IVP DAILY [facility] Last Admin: 10/04/16 08:20 Dose: 20 mg Glucagon (Glucagen Diagnostic Kit) 0 mg IM STAT PRN; Protocol PRN Reason: Hypoglycemia Protocol Hydromorphone HCl (Dilaudid) 0.5 mg IVP RQ4PRN PRN PRN Reason: Pain, severe (8-10) Last Admin: 10/04/16 03:02 Dose: 0.5 mg Lactated Ringer's (Lactated Ringer's) 1,000 mls @ 1,000 mls/hr IV .Q1H [facility] Last Admin: 10/03/16 19:18 Dose: 1,000 mls/hr Lactated Ringer's (Lactated Ringer's) 1,000 mls @ 1,000 mls/hr IV .Q1H [facility] Last Admin: 10/03/16 20:53 Dose: 1,000 mls/hr Sodium Chloride (Sodium Chloride 0.9%) 1,000 mls @ 150 mls/hr IV .Q6H40M [facility] Stop: 10/06/16 21:14 Last Admin: 10/04/16 02:48 Dose: 150 mls/hr Cefepime HCl 1 gm/ Sodium (Chloride) 100 mls @ 100 mls/hr IVPB Q8 [facility] Last Admin: 10/04/16 08:21 Dose: 100 mls/hr Lactated Ringer's (Lactated Ringer's) 1,000 mls @ 200 mls/hr IV .Q5H [facility] Magnesium Sulfate (Magnesium Sulfate 2 Gm/50 Ml Water) 2 gm in 50 mls @ 50 mls/ hr IVPB ONCE ONE PRN Reason: 2 GM/HR Stop: 10/04/16 13:07 Insulin Human Regular (Humulin R) 0 units SC ACHS SUDHA PRN Reason: Protocol Last Admin: 10/04/16 11:06 Dose: Not Given Ondansetron HCl (Zofran Inj) 4 mg IVP Q6 PRN PRN Reason: Nausea/Vomiting Physical Exam - Constitutional Appears: No Acute Distress - Head Exam Head Exam: ATRAUMATIC, NORMAL INSPECTION, NORMOCEPHALIC - Eye Exam Eye Exam: Normal appearance - ENT Exam ENT Exam: Mucous Membranes Moist - Respiratory Exam Respiratory Exam: NORMAL BREATHING PATTERN. absent: Respiratory Distress - Cardiovascular Exam Cardiovascular Exam: REGULAR RHYTHM - GI/Abdominal Exam GI & Abdominal Exam: Distended, Guarding, Soft, Tenderness (RUQ, Epigastric). absent: Hernia, Rebound, Rigid - Extremities Exam Extremities exam: Positive for: normal inspection. Negative for: calf tenderness, pedal edema - Neurological Exam Neurological exam: Alert, Oriented x3 - Psychiatric Exam Psychiatric exam: Normal Affect, Normal Mood - Skin Skin Exam: Dry, Intact Results - Vital Signs Recent Vital Signs: Last Vital Signs Temp 99.0 F 10/04/16 12:06 Pulse 72 10/04/16 12:06 Resp 17 10/04/16 12:06 BP 119/65 10/04/16 12:06 Pulse Ox 95 10/04/16 12:06 - Labs Result Diagrams: 10/04/16 04:25 10/04/16 04:25 Labs: Laboratory Results - last 24 hr 10/03/16 10/03/16 10/04/16 21:45 22:54 04:25 WBC 22.5 H RBC 4.19 L Hgb 11.1 L D Hct 34.3 L MCV 81.8 MCH 26.4 L MCHC 32.3 L RDW 14.1 Plt Count 122 L D MPV 9.9 Neut % (Auto) 92.7 H Lymph % (Auto) 1.5 L [place] % (Auto) 5.7 Eos % (Auto) 0.0 Baso % (Auto) 0.1 Neut # 20.9 H Lymph # 0.3 L [place] # 1.3 H Eos # 0.0 Baso # 0.0 Neutrophils % (Manual) 94 H Lymphocytes % (Manual) 1 L Monocytes % (Manual) 5 Platelet Estimate Slightly decreased L Anisocytosis (manual) Slight pO2 24 L VBG pH 7.43 VBG pCO2 36 L VBG HCO3 23.4 VBG Total CO2 25.0 VBG O2 Sat (Calc) 52.6 VBG Base Excess -0.1 L Sodium 183.0 H* Chloride 121.0 H Glucose 118 H Lactate 3.8 H FiO2 21.0 Blood Gas Comments Vbg Crit Value Called To Dr maria dolores cortes Crit Value Called By 162 Crit Value Read Back Y Blood Gas Notified Time 2149 Potassium Carbon Dioxide Anion Gap BUN Creatinine Est GFR ( Amer) Est GFR (Non-Af Amer) POC Glucose (mg/dL) 123 H Random Glucose Calcium Magnesium Total Bilirubin AST ALT Alkaline Phosphatase Total Protein Albumin Globulin Albumin/Globulin Ratio Triglycerides Cholesterol LDL Cholesterol Direct HDL Cholesterol Lipase Urine Color Urine Clarity Urine pH Ur Specific [place] Urine Protein Urine Glucose (UA) Urine Ketones Urine Blood Urine Nitrate Urine Bilirubin Urine Urobilinogen Ur Leukocyte Esterase Urine RBC (Auto) Urine Microscopic WBC Ur Squamous Epith Cells 10/04/16 10/04/16 10/04/16 04:25 05:27 08:20 WBC RBC Hgb Hct MCV MCH MCHC RDW Plt Count MPV Neut % (Auto) Lymph % (Auto) [place] % (Auto) Eos % (Auto) Baso % (Auto) Neut # Lymph # [place] # Eos # Baso # Neutrophils % (Manual) Lymphocytes % (Manual) Monocytes % (Manual) Platelet Estimate Anisocytosis (manual) pO2 VBG pH VBG pCO2 VBG HCO3 VBG Total CO2 VBG O2 Sat (Calc) VBG Base Excess Sodium 137 Chloride 107 Glucose Lactate FiO2 Blood Gas Comments Crit Value Called To Crit Value Called By Crit Value Read Back Blood Gas Notified Time Potassium 3.8 Carbon Dioxide 23 Anion Gap 11 BUN 25 H Creatinine 1.0 Est GFR ( Amer) > 60 Est GFR (Non-Af Amer) > 60 POC Glucose (mg/dL) 113 H Random Glucose 111 H Calcium 8.3 L Magnesium 1.5 L Total Bilirubin 3.3 H AST 296 H D ALT 349 H D Alkaline Phosphatase 108 Total Protein 5.9 L Albumin 3.2 L D Globulin 2.7 Albumin/Globulin Ratio 1.2 Triglycerides 53 D Cholesterol 127 LDL Cholesterol Direct 80 HDL Cholesterol 29 L Lipase 3990 H Urine Color Yellow Urine Clarity Clear Urine pH 6.0 Ur Specific [place] 1.013 Urine Protein Negative Urine Glucose (UA) Neg Urine Ketones Negative Urine Blood Negative Urine Nitrate Negative Urine Bilirubin Negative Urine Urobilinogen 0.2-1.0 Ur Leukocyte Esterase Neg Urine RBC (Auto) 3 Urine Microscopic WBC < 1 Ur Squamous Epith Cells < 1 10/04/16 11:04 WBC RBC Hgb Hct MCV MCH MCHC RDW Plt Count MPV Neut % (Auto) Lymph % (Auto) [place] % (Auto) Eos % (Auto) Baso % (Auto) Neut # Lymph # [place] # Eos # Baso # Neutrophils % (Manual) Lymphocytes % (Manual) Monocytes % (Manual) Platelet Estimate Anisocytosis (manual) pO2 VBG pH VBG pCO2 VBG HCO3 VBG Total CO2 VBG O2 Sat (Calc) VBG Base Excess Sodium Chloride Glucose Lactate FiO2 Blood Gas Comments Crit Value Called To Crit Value Called By Crit Value Read Back Blood Gas Notified Time Potassium Carbon Dioxide Anion Gap BUN Creatinine Est GFR ( Amer) Est GFR (Non-Af Amer) POC Glucose (mg/dL) 107 Random Glucose Calcium Magnesium Total Bilirubin AST ALT Alkaline Phosphatase Total Protein Albumin Globulin Albumin/Globulin Ratio Triglycerides Cholesterol LDL Cholesterol Direct HDL Cholesterol Lipase Urine Color Urine Clarity Urine pH Ur Specific [place] Urine Protein Urine Glucose (UA) Urine Ketones Urine Blood Urine Nitrate Urine Bilirubin Urine Urobilinogen Ur Leukocyte Esterase Urine RBC (Auto) Urine Microscopic WBC Ur Squamous Epith Cells Assessment & Plan - Assessment and Plan (Free Text) Assessment: 86 yo M w/ acute gallstone pancreatitis -Continue NPO, IVF, IV Abx, and Pain control prn -Tbili trending up (3.3 today), Lipase trending down (3990 today from >30,000 last night) -GI planning for ERCP/EUS tomorrow -Will plan for surgery this admission once pancreatitis resolves and LFTs are trending down -Carotid Duplex and Medical/Cardiac clearance prior to Surgery Will DW Dr Tian Benz PGY3 <Maynor Watson - Last Filed: 10/04/16 13:29> History of Present Illness - History of Present Illness History of Present Illness: Patient was seen and examined at the bedside. Agree with resident's note above. Meds - Medications Medications: Current Medications Acetaminophen (Tylenol 650 Mg Supp) 650 mg MS Q6 PRN PRN Reason: Fever >100.4 F Last Admin: 10/04/16 03:20 Dose: 650 mg Dextrose (Dextrose 50% Inj) 0 ml IV STAT PRN; Protocol PRN Reason: Hyglycemia Protocol Dextrose (Glutose 15) 0 gm PO ONCE PRN; Protocol PRN Reason: Hypoglycemia Protocol Enoxaparin Sodium (Lovenox) 40 mg SC DAILY [facility]UD[facility] PRN Reason: Protocol Last Admin: 10/04/16 08:20 Dose: 40 mg Famotidine (Pepcid) 20 mg IVP DAILY [facility] Last Admin: 10/04/16 08:20 Dose: 20 mg Glucagon (Glucagen Diagnostic Kit) 0 mg IM STAT PRN; Protocol PRN Reason: Hypoglycemia Protocol Hydromorphone HCl (Dilaudid) 0.5 mg IVP RQ4PRN PRN PRN Reason: Pain, severe (8-10) Last Admin: 10/04/16 03:02 Dose: 0.5 mg Lactated Ringer's (Lactated Ringer's) 1,000 mls @ 1,000 mls/hr IV .Q1H [facility] Last Admin: 10/03/16 19:18 Dose: 1,000 mls/hr Lactated Ringer's (Lactated Ringer's) 1,000 mls @ 1,000 mls/hr IV .Q1H [facility] Last Admin: 10/03/16 20:53 Dose: 1,000 mls/hr Sodium Chloride (Sodium Chloride 0.9%) 1,000 mls @ 150 mls/hr IV .Q6H40M [facility] Stop: 10/06/16 21:14 Last Admin: 10/04/16 12:56 Dose: 150 mls/hr Cefepime HCl 1 gm/ Sodium (Chloride) 100 mls @ 100 mls/hr IVPB Q8 [facility] Last Admin: 10/04/16 08:21 Dose: 100 mls/hr Lactated Ringer's (Lactated Ringer's) 1,000 mls @ 200 mls/hr IV .Q5H [facility] Insulin Human Regular (Humulin R) 0 units SC ACHS SUDHA PRN Reason: Protocol Last Admin: 10/04/16 11:06 Dose: Not Given Ondansetron HCl (Zofran Inj) 4 mg IVP Q6 PRN PRN Reason: Nausea/Vomiting Results - Vital Signs Recent Vital Signs: Last Vital Signs Temp 99.0 F 10/04/16 12:06 Pulse 72 10/04/16 12:06 Resp 17 10/04/16 12:06 BP 119/65 10/04/16 12:06 Pulse Ox 95 10/04/16 12:06 - Labs Result Diagrams: 10/04/16 04:25 10/04/16 04:25 Labs: Laboratory Results - last 24 hr 10/03/16 10/03/16 10/04/16 21:45 22:54 04:25 WBC 22.5 H RBC 4.19 L Hgb 11.1 L D Hct 34.3 L MCV 81.8 MCH 26.4 L MCHC 32.3 L RDW 14.1 Plt Count 122 L D MPV 9.9 Neut % (Auto) 92.7 H Lymph % (Auto) 1.5 L [place] % (Auto) 5.7 Eos % (Auto) 0.0 Baso % (Auto) 0.1 Neut # 20.9 H Lymph # 0.3 L [place] # 1.3 H Eos # 0.0 Baso # 0.0 Neutrophils % (Manual) 94 H Lymphocytes % (Manual) 1 L Monocytes % (Manual) 5 Platelet Estimate Slightly decreased L Anisocytosis (manual) Slight pO2 24 L VBG pH 7.43 VBG pCO2 36 L VBG HCO3 23.4 VBG Total CO2 25.0 VBG O2 Sat (Calc) 52.6 VBG Base Excess -0.1 L Sodium 183.0 H* Chloride 121.0 H Glucose 118 H Lactate 3.8 H FiO2 21.0 Blood Gas Comments Vbg Crit Value Called To Dr maria dolores cortes Crit Value Called By 162 Crit Value Read Back Y Blood Gas Notified Time 2148 Potassium Carbon Dioxide Anion Gap BUN Creatinine Est GFR ( Amer) Est GFR (Non-Af Amer) POC Glucose (mg/dL) 123 H Random Glucose Calcium Magnesium Total Bilirubin AST ALT Alkaline Phosphatase Total Protein Albumin Globulin Albumin/Globulin Ratio Triglycerides Cholesterol LDL Cholesterol Direct HDL Cholesterol Lipase Urine Color Urine Clarity Urine pH Ur Specific [place] Urine Protein Urine Glucose (UA) Urine Ketones Urine Blood Urine Nitrate Urine Bilirubin Urine Urobilinogen Ur Leukocyte Esterase Urine RBC (Auto) Urine Microscopic WBC Ur Squamous Epith Cells 10/04/16 10/04/16 10/04/16 04:25 04:30 05:27 WBC RBC Hgb Hct MCV MCH MCHC RDW Plt Count MPV Neut % (Auto) Lymph % (Auto) [place] % (Auto) Eos % (Auto) Baso % (Auto) Neut # Lymph # [place] # Eos # Baso # Neutrophils % (Manual) Lymphocytes % (Manual) Monocytes % (Manual) Platelet Estimate Anisocytosis (manual) pO2 VBG pH VBG pCO2 VBG HCO3 VBG Total CO2 VBG O2 Sat (Calc) VBG Base Excess Sodium 137 Chloride 107 Glucose Lactate FiO2 Blood Gas Comments Crit Value Called To Crit Value Called By Crit Value Read Back Blood Gas Notified Time Potassium 3.8 Carbon Dioxide 23 Anion Gap 11 BUN 25 H Creatinine 1.0 Est GFR ( Amer) > 60 Est GFR (Non-Af Amer) > 60 POC Glucose (mg/dL) 113 H Random Glucose 111 H Calcium 8.3 L Magnesium 1.5 L Total Bilirubin 3.3 H AST 296 H D ALT 349 H D Alkaline Phosphatase 108 Total Protein 5.9 L Albumin 3.2 L D Globulin 2.7 Albumin/Globulin Ratio 1.2 Triglycerides 53 D 53 Cholesterol 127 126 LDL Cholesterol Direct 80 86 HDL Cholesterol 29 L 27 L Lipase 3990 H Urine Color Urine Clarity Urine pH Ur Specific [place] Urine Protein Urine Glucose (UA) Urine Ketones Urine Blood Urine Nitrate Urine Bilirubin Urine Urobilinogen Ur Leukocyte Esterase Urine RBC (Auto) Urine Microscopic WBC Ur Squamous Epith Cells 10/04/16 10/04/16 08:20 11:04 WBC RBC Hgb Hct MCV MCH MCHC RDW Plt Count MPV Neut % (Auto) Lymph % (Auto) [place] % (Auto) Eos % (Auto) Baso % (Auto) Neut # Lymph # [place] # Eos # Baso # Neutrophils % (Manual) Lymphocytes % (Manual) Monocytes % (Manual) Platelet Estimate Anisocytosis (manual) pO2 VBG pH VBG pCO2 VBG HCO3 VBG Total CO2 VBG O2 Sat (Calc) VBG Base Excess Sodium Chloride Glucose Lactate FiO2 Blood Gas Comments Crit Value Called To Crit Value Called By Crit Value Read Back Blood Gas Notified Time Potassium Carbon Dioxide Anion Gap BUN Creatinine Est GFR ( Amer) Est GFR (Non-Af Amer) POC Glucose (mg/dL) 107 Random Glucose Calcium Magnesium Total Bilirubin AST ALT Alkaline Phosphatase Total Protein Albumin Globulin Albumin/Globulin Ratio Triglycerides Cholesterol LDL Cholesterol Direct HDL Cholesterol Lipase Urine Color Yellow Urine Clarity Clear Urine pH 6.0 Ur Specific [place] 1.013 Urine Protein Negative Urine Glucose (UA) Neg Urine Ketones Negative Urine Blood Negative Urine Nitrate Negative Urine Bilirubin Negative Urine Urobilinogen 0.2-1.0 Ur Leukocyte Esterase Neg Urine RBC (Auto) 3 Urine Microscopic WBC < 1 Ur Squamous Epith Cells < 1
[2016-10-04 12:53] LABS: CHOLESTEROL 126 mg/dL (0-199)
--- NOTE | 2016-10-04 13:07 | CP.PCM.CON ---
<Candy Chen - Last Filed: 10/04/16 13:17> History of Present Illness - History of Present Illness History of Present Illness: GI Fellow PGY4 Consult Note This is a 86yM with a pmhx of HTN, HLD, DM pw with acute onset of Epigastric/ RUQ pain radiating to back with associated fevers and chills. Pt denies any nausea, vomiting or diarrhea. Pt does not have a hx of prior pancreatitis or alcohol abuse. Pt reports that prior to this episode he had no symptoms of abdominal pain or pain with eating food. In the ER pt was admitted for acute pancreatitis with elevated lipase of 30,358 and CTA/P wo contrast showing gallstones, pancreatitis and Abdominal US showing CBC 4mm and cholelithiasis. Pt reports he feels better this morning with less pain after receiving pain medication. Pt did receive IVF 3L Bolus of LR and is currently on maintenance IVF 150cc/hr. 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 - HEENT Hx HEENT Problems: No - RENAL Hx Chronic Kidney Disease: No - ENDOCRINE/METABOLIC Hx Endocrine Disorders: Yes Hx Diabetes Mellitus Type 2: Yes - HEMATOLOGICAL/ONCOLOGICAL Hx Blood Disorders: No Hx AIDS: No Hx Human Immunodeficiency Virus (HIV): No - INTEGUMENTARY Hx Dermatological Problems: No - MUSCULOSKELETAL/RHEUMATOLOGICAL Hx Musculoskeletal Disorders: No Hx Falls: No - GASTROINTESTINAL Hx Gastrointestinal Disorders: No - GENITOURINARY/GYNECOLOGICAL Hx Genitourinary Disorders: No - PSYCHIATRIC Hx Psychophysiologic Disorder: No Hx Substance Use: No - SURGICAL HISTORY Hx Surgeries: Yes Hx Herniorrhaphy: Yes - ANESTHESIA Hx Anesthesia: No Hx Anesthesia Reactions: No Hx Malignant Hyperthermia: No Has any member of the family had a problem w/ anesthesia?: No Meds Allergies/Adverse Reactions: Allergies Allergy/AdvReac Type Severity Reaction Status Date / Time Penicillins Allergy Mild RASH Verified 02/25/16 13:07 - Medications Medications: Current Medications Acetaminophen (Tylenol 650 Mg Supp) 650 mg WV Q6 PRN PRN Reason: Fever >100.4 F Last Admin: 10/04/16 03:20 Dose: 650 mg Dextrose (Dextrose 50% Inj) 0 ml IV STAT PRN; Protocol PRN Reason: Hyglycemia Protocol Dextrose (Glutose 15) 0 gm PO ONCE PRN; Protocol PRN Reason: Hypoglycemia Protocol Enoxaparin Sodium (Lovenox) 40 mg SC DAILY SUDHA PRN Reason: Protocol Last Admin: 10/04/16 08:20 Dose: 40 mg Famotidine (Pepcid) 20 mg IVP DAILY [facility] Last Admin: 10/04/16 08:20 Dose: 20 mg Glucagon (Glucagen Diagnostic Kit) 0 mg IM STAT PRN; Protocol PRN Reason: Hypoglycemia Protocol Hydromorphone HCl (Dilaudid) 0.5 mg IVP RQ4PRN PRN PRN Reason: Pain, severe (8-10) Last Admin: 10/04/16 03:02 Dose: 0.5 mg Lactated Ringer's (Lactated Ringer's) 1,000 mls @ 1,000 mls/hr IV .Q1H [facility] Last Admin: 10/03/16 19:18 Dose: 1,000 mls/hr Lactated Ringer's (Lactated Ringer's) 1,000 mls @ 1,000 mls/hr IV .Q1H [facility] [place] Last Admin: 10/03/16 20:53 Dose: 1,000 mls/hr Sodium Chloride (Sodium Chloride 0.9%) 1,000 mls @ 150 mls/hr IV .Q6H40M [facility] [place] Stop: 10/06/16 21:14 Last Admin: 10/04/16 12:56 Dose: 150 mls/hr Cefepime HCl 1 gm/ Sodium (Chloride) 100 mls @ 100 mls/hr IVPB Q8 [facility] [place] Last Admin: 10/04/16 08:21 Dose: 100 mls/hr Lactated Ringer's (Lactated Ringer's) 1,000 mls @ 200 mls/hr IV .Q5H [facility] [place] Insulin Human Regular (Humulin R) 0 units SC ACHS SUDHA PRN Reason: Protocol Last Admin: 10/04/16 11:06 Dose: Not Given Ondansetron HCl (Zofran Inj) 4 mg IVP Q6 PRN PRN Reason: Nausea/Vomiting Physical Exam - Constitutional Appears: Well, Non-toxic - Head Exam Head Exam: ATRAUMATIC, NORMAL INSPECTION, NORMOCEPHALIC - Eye Exam Eye Exam: EOMI, Normal appearance, PERRL Pupil Exam: PERRL - ENT Exam ENT Exam: Mucous Membranes Moist, Normal Exam - Neck Exam Neck exam: Positive for: Normal Inspection - Respiratory Exam Respiratory Exam: Rhonchi, NORMAL BREATHING PATTERN - Cardiovascular Exam Cardiovascular Exam: RRR, +S1, +S2 - GI/Abdominal Exam GI & Abdominal Exam: Normal Bowel Sounds, Soft, Tenderness. absent: Distended, Firm, Guarding, Organomegaly - Rectal Exam Rectal Exam: Deferred - Extremities Exam Extremities exam: Positive for: normal inspection - Back Exam Back exam: NORMAL INSPECTION - Neurological Exam Neurological exam: Alert, Oriented x3 - Psychiatric Exam Psychiatric exam: Normal Affect, Normal Mood - Skin Skin Exam: Dry, Intact, Normal Color, Warm Results - Vital Signs Recent Vital Signs: Last Vital Signs Temp 99.0 F 10/04/16 12:06 Pulse 72 10/04/16 12:06 Resp 17 10/04/16 12:06 BP 119/65 10/04/16 12:06 Pulse Ox 95 10/04/16 12:06 - Labs Result Diagrams: 10/04/16 04:25 10/04/16 04:25 Labs: Laboratory Results - last 24 hr 10/03/16 10/03/16 10/04/16 21:45 22:54 04:25 WBC 22.5 H RBC 4.19 L Hgb 11.1 L D Hct 34.3 L MCV 81.8 MCH 26.4 L MCHC 32.3 L RDW 14.1 Plt Count 122 L D MPV 9.9 Neut % (Auto) 92.7 H Lymph % (Auto) 1.5 L Barron % (Auto) 5.7 Eos % (Auto) 0.0 Baso % (Auto) 0.1 Neut # 20.9 H Lymph # 0.3 L Barron # 1.3 H Eos # 0.0 Baso # 0.0 Neutrophils % (Manual) 94 H Lymphocytes % (Manual) 1 L Monocytes % (Manual) 5 Platelet Estimate Slightly decreased L Anisocytosis (manual) Slight pO2 24 L VBG pH 7.43 VBG pCO2 36 L VBG HCO3 23.4 VBG Total CO2 25.0 VBG O2 Sat (Calc) 52.6 VBG Base Excess -0.1 L Sodium 183.0 H* Chloride 121.0 H Glucose 118 H Lactate 3.8 H FiO2 21.0 Blood Gas Comments Vbg Crit Value Called To Dr maria dolores cortes Crit Value Called By 162 Crit Value Read Back Y Blood Gas Notified Time 2149 Potassium Carbon Dioxide Anion Gap BUN Creatinine Est GFR ( Amer) Est GFR (Non-Af Amer) POC Glucose (mg/dL) 123 H Random Glucose Calcium Magnesium Total Bilirubin AST ALT Alkaline Phosphatase Total Protein Albumin Globulin Albumin/Globulin Ratio Triglycerides Cholesterol LDL Cholesterol Direct HDL Cholesterol Lipase Urine Color Urine Clarity Urine pH Ur Specific [place] Urine Protein Urine Glucose (UA) Urine Ketones Urine Blood Urine Nitrate Urine Bilirubin Urine Urobilinogen Ur Leukocyte Esterase Urine RBC (Auto) Urine Microscopic WBC Ur Squamous Epith Cells 10/04/16 10/04/16 10/04/16 04:25 04:30 05:27 WBC RBC Hgb Hct MCV MCH MCHC RDW Plt Count MPV Neut % (Auto) Lymph % (Auto) Barron % (Auto) Eos % (Auto) Baso % (Auto) Neut # Lymph # Barron # Eos # Baso # Neutrophils % (Manual) Lymphocytes % (Manual) Monocytes % (Manual) Platelet Estimate Anisocytosis (manual) pO2 VBG pH VBG pCO2 VBG HCO3 VBG Total CO2 VBG O2 Sat (Calc) VBG Base Excess Sodium 137 Chloride 107 Glucose Lactate FiO2 Blood Gas Comments Crit Value Called To Crit Value Called By Crit Value Read Back Blood Gas Notified Time Potassium 3.8 Carbon Dioxide 23 Anion Gap 11 BUN 25 H Creatinine 1.0 Est GFR ( Amer) > 60 Est GFR (Non-Af Amer) > 60 POC Glucose (mg/dL) 113 H Random Glucose 111 H Calcium 8.3 L Magnesium 1.5 L Total Bilirubin 3.3 H AST 296 H D ALT 349 H D Alkaline Phosphatase 108 Total Protein 5.9 L Albumin 3.2 L D Globulin 2.7 Albumin/Globulin Ratio 1.2 Triglycerides 53 D 53 Cholesterol 127 126 LDL Cholesterol Direct 80 86 HDL Cholesterol 29 L 27 L Lipase 3990 H Urine Color Urine Clarity Urine pH Ur Specific [place] Urine Protein Urine Glucose (UA) Urine Ketones Urine Blood Urine Nitrate Urine Bilirubin Urine Urobilinogen Ur Leukocyte Esterase Urine RBC (Auto) Urine Microscopic WBC Ur Squamous Epith Cells 10/04/16 10/04/16 08:20 11:04 WBC RBC Hgb Hct MCV MCH MCHC RDW Plt Count MPV Neut % (Auto) Lymph % (Auto) Barron % (Auto) Eos % (Auto) Baso % (Auto) Neut # Lymph # Barron # Eos # Baso # Neutrophils % (Manual) Lymphocytes % (Manual) Monocytes % (Manual) Platelet Estimate Anisocytosis (manual) pO2 VBG pH VBG pCO2 VBG HCO3 VBG Total CO2 VBG O2 Sat (Calc) VBG Base Excess Sodium Chloride Glucose Lactate FiO2 Blood Gas Comments Crit Value Called To Crit Value Called By Crit Value Read Back Blood Gas Notified Time Potassium Carbon Dioxide Anion Gap BUN Creatinine Est GFR ( Amer) Est GFR (Non-Af Amer) POC Glucose (mg/dL) 107 Random Glucose Calcium Magnesium Total Bilirubin AST ALT Alkaline Phosphatase Total Protein Albumin Globulin Albumin/Globulin Ratio Triglycerides Cholesterol LDL Cholesterol Direct HDL Cholesterol Lipase Urine Color Yellow Urine Clarity Clear Urine pH 6.0 Ur Specific [place] 1.013 Urine Protein Negative Urine Glucose (UA) Neg Urine Ketones Negative Urine Blood Negative Urine Nitrate Negative Urine Bilirubin Negative Urine Urobilinogen 0.2-1.0 Ur Leukocyte Esterase Neg Urine RBC (Auto) 3 Urine Microscopic WBC < 1 Ur Squamous Epith Cells < 1 Assessment & Plan - Assessment and Plan (Free Text) Assessment: This is a 86yM pw acute onset of abdominal pain associated with fevers and chills. 1. Acute Cholecysitis 2. Acute Pancreatitis-likely gallstone 3. Transaminitis Plan: -Continue aggressive IVF with LR at 150cc/hr, BUN and Hct improved today -Continue IV abx with Cefepime and blood cultures -Monitor LFTS -MRCP negative for Choledocholithiasis-so no plan for EUS or ERCP at this time -Recommend Surgery consult for cholecystectomy -Pancreatitis likely from gallstones since no hx of alcohol abuse, will order lipid profile -Will continue to follow pt closely <Gail Ramirez MD - Last Filed: 10/04/16 19:23> Meds - Medications Medications: Current Medications Acetaminophen (Tylenol 650 Mg Supp) 650 mg WV Q6 PRN PRN Reason: Fever >100.4 F Last Admin: 10/04/16 03:20 Dose: 650 mg Dextrose (Dextrose 50% Inj) 0 ml IV STAT PRN; Protocol PRN Reason: Hyglycemia Protocol Dextrose (Glutose 15) 0 gm PO ONCE PRN; Protocol PRN Reason: Hypoglycemia Protocol Enoxaparin Sodium (Lovenox) 40 mg SC DAILY SUDHA PRN Reason: Protocol Last Admin: 10/04/16 08:20 Dose: 40 mg Famotidine (Pepcid) 20 mg IVP DAILY [facility] Last Admin: 10/04/16 08:20 Dose: 20 mg Glucagon (Glucagen Diagnostic Kit) 0 mg IM STAT PRN; Protocol PRN Reason: Hypoglycemia Protocol Hydromorphone HCl (Dilaudid) 0.5 mg IVP RQ4PRN PRN PRN Reason: Pain, severe (8-10) Last Admin: 10/04/16 03:02 Dose: 0.5 mg Lactated Ringer's (Lactated Ringer's) 1,000 mls @ 1,000 mls/hr IV .Q1H [facility] Last Admin: 10/03/16 19:18 Dose: 1,000 mls/hr Lactated Ringer's (Lactated Ringer's) 1,000 mls @ 1,000 mls/hr IV .Q1H [facility] Last Admin: 10/03/16 20:53 Dose: 1,000 mls/hr Sodium Chloride (Sodium Chloride 0.9%) 1,000 mls @ 150 mls/hr IV .Q6H40M [facility] Stop: 10/06/16 21:14 Last Admin: 10/04/16 12:56 Dose: 150 mls/hr Lactated Ringer's (Lactated Ringer's) 1,000 mls @ 200 mls/hr IV .Q5H [facility] Meropenem 1 gm/ Sodium (Chloride) 100 mls @ 100 mls/hr IVPB Q8 [facility] [place] Last Admin: 10/04/16 16:08 Dose: 100 mls/hr Metronidazole (Flagyl 500mg/100ml Ns) 100 mls @ 100 mls/hr IVPB Q8 [facility] [place] Last Admin: 10/04/16 16:25 Dose: 100 mls/hr Insulin Human Regular (Humulin R) 0 units SC ACHS SUDHA PRN Reason: Protocol Last Admin: 10/04/16 18:45 Dose: Not Given Ondansetron HCl (Zofran Inj) 4 mg IVP Q6 PRN PRN Reason: Nausea/Vomiting Results - Vital Signs Recent Vital Signs: Last Vital Signs Temp 99.2 F 10/04/16 16:00 Pulse 69 10/04/16 18:00 Resp 16 10/04/16 18:00 BP 110/70 10/04/16 18:00 Pulse Ox 96 10/04/16 18:00 - Labs Result Diagrams: 10/04/16 04:25 10/04/16 04:25 Labs: Laboratory Results - last 24 hr 10/03/16 10/03/16 10/04/16 21:45 22:54 04:25 WBC 22.5 H RBC 4.19 L Hgb 11.1 L D Hct 34.3 L MCV 81.8 MCH 26.4 L MCHC 32.3 L RDW 14.1 Plt Count 122 L D MPV 9.9 Neut % (Auto) 92.7 H Lymph % (Auto) 1.5 L Barron % (Auto) 5.7 Eos % (Auto) 0.0 Baso % (Auto) 0.1 Neut # 20.9 H Lymph # 0.3 L Barron # 1.3 H Eos # 0.0 Baso # 0.0 Neutrophils % (Manual) 94 H Lymphocytes % (Manual) 1 L Monocytes % (Manual) 5 Platelet Estimate Slightly decreased L Anisocytosis (manual) Slight ESR pO2 24 L VBG pH 7.43 VBG pCO2 36 L VBG HCO3 23.4 VBG Total CO2 25.0 VBG O2 Sat (Calc) 52.6 VBG Base Excess -0.1 L Sodium 183.0 H* Chloride 121.0 H Glucose 118 H Lactate 3.8 H FiO2 21.0 Blood Gas Comments Vbg Crit Value Called To Dr maria dolores cortes Crit Value Called By 162 Crit Value Read Back Y Blood Gas Notified Time 9729 Potassium Carbon Dioxide Anion Gap BUN Creatinine Est GFR ( Amer) Est GFR (Non-Af Amer) POC Glucose (mg/dL) 123 H Random Glucose Hemoglobin A1c Calcium Magnesium Total Bilirubin AST ALT Alkaline Phosphatase Total Protein Albumin Globulin Albumin/Globulin Ratio Triglycerides Cholesterol LDL Cholesterol Direct HDL Cholesterol Lipase Urine Color Urine Clarity Urine pH Ur Specific [place] Urine Protein Urine Glucose (UA) Urine Ketones Urine Blood Urine Nitrate Urine Bilirubin Urine Urobilinogen Ur Leukocyte Esterase Urine RBC (Auto) Urine Microscopic WBC Ur Squamous Epith Cells 10/04/16 10/04/16 10/04/16 04:25 04:25 04:30 WBC RBC Hgb Hct MCV MCH MCHC RDW Plt Count MPV Neut % (Auto) Lymph % (Auto) Barron % (Auto) Eos % (Auto) Baso % (Auto) Neut # Lymph # Barron # Eos # Baso # Neutrophils % (Manual) Lymphocytes % (Manual) Monocytes % (Manual) Platelet Estimate Anisocytosis (manual) ESR pO2 VBG pH VBG pCO2 VBG HCO3 VBG Total CO2 VBG O2 Sat (Calc) VBG Base Excess Sodium 137 Chloride 107 Glucose Lactate FiO2 Blood Gas Comments Crit Value Called To Crit Value Called By Crit Value Read Back Blood Gas Notified Time Potassium 3.8 Carbon Dioxide 23 Anion Gap 11 BUN 25 H Creatinine 1.0 Est GFR ( Amer) > 60 Est GFR (Non-Af Amer) > 60 POC Glucose (mg/dL) Random Glucose 111 H Hemoglobin A1c 6.2 Calcium 8.3 L Magnesium 1.5 L Total Bilirubin 3.3 H AST 296 H D ALT 349 H D Alkaline Phosphatase 108 Total Protein 5.9 L Albumin 3.2 L D Globulin 2.7 Albumin/Globulin Ratio 1.2 Triglycerides 53 D 53 Cholesterol 127 126 LDL Cholesterol Direct 80 86 HDL Cholesterol 29 L 27 L Lipase 3990 H Urine Color Urine Clarity Urine pH Ur Specific [place] Urine Protein Urine Glucose (UA) Urine Ketones Urine Blood Urine Nitrate Urine Bilirubin Urine Urobilinogen Ur Leukocyte Esterase Urine RBC (Auto) Urine Microscopic WBC Ur Squamous Epith Cells 10/04/16 10/04/16 10/04/16 05:27 08:20 11:04 WBC RBC Hgb Hct MCV MCH MCHC RDW Plt Count MPV Neut % (Auto) Lymph % (Auto) Barron % (Auto) Eos % (Auto) Baso % (Auto) Neut # Lymph # Barron # Eos # Baso # Neutrophils % (Manual) Lymphocytes % (Manual) Monocytes % (Manual) Platelet Estimate Anisocytosis (manual) ESR pO2 VBG pH VBG pCO2 VBG HCO3 VBG Total CO2 VBG O2 Sat (Calc) VBG Base Excess Sodium Chloride Glucose Lactate FiO2 Blood Gas Comments Crit Value Called To Crit Value Called By Crit Value Read Back Blood Gas Notified Time Potassium Carbon Dioxide Anion Gap BUN Creatinine Est GFR ( Amer) Est GFR (Non-Af Amer) POC Glucose (mg/dL) 113 H 107 Random Glucose Hemoglobin A1c Calcium Magnesium Total Bilirubin AST ALT Alkaline Phosphatase Total Protein Albumin Globulin Albumin/Globulin Ratio Triglycerides Cholesterol LDL Cholesterol Direct HDL Cholesterol Lipase Urine Color Yellow Urine Clarity Clear Urine pH 6.0 Ur Specific [place] 1.013 Urine Protein Negative Urine Glucose (UA) Neg Urine Ketones Negative Urine Blood Negative Urine Nitrate Negative Urine Bilirubin Negative Urine Urobilinogen 0.2-1.0 Ur Leukocyte Esterase Neg Urine RBC (Auto) 3 Urine Microscopic WBC < 1 Ur Squamous Epith Cells < 1 10/04/16 10/04/16 15:27 15:57 WBC RBC Hgb Hct MCV MCH MCHC RDW Plt Count MPV Neut % (Auto) Lymph % (Auto) Barron % (Auto) Eos % (Auto) Baso % (Auto) Neut # Lymph # Barron # Eos # Baso # Neutrophils % (Manual) Lymphocytes % (Manual) Monocytes % (Manual) Platelet Estimate Anisocytosis (manual) ESR 19 pO2 VBG pH VBG pCO2 VBG HCO3 VBG Total CO2 VBG O2 Sat (Calc) VBG Base Excess Sodium Chloride Glucose Lactate FiO2 Blood Gas Comments Crit Value Called To Crit Value Called By Crit Value Read Back Blood Gas Notified Time Potassium Carbon Dioxide Anion Gap BUN Creatinine Est GFR ( Amer) Est GFR (Non-Af Amer) POC Glucose (mg/dL) 93 Random Glucose Hemoglobin A1c Calcium Magnesium Total Bilirubin AST ALT Alkaline Phosphatase Total Protein Albumin Globulin Albumin/Globulin Ratio Triglycerides Cholesterol LDL Cholesterol Direct HDL Cholesterol Lipase Urine Color Urine Clarity Urine pH Ur Specific [place] Urine Protein Urine Glucose (UA) Urine Ketones Urine Blood Urine Nitrate Urine Bilirubin Urine Urobilinogen Ur Leukocyte Esterase Urine RBC (Auto) Urine Microscopic WBC Ur Squamous Epith Cells Attending/Attestation - Attestation I have personally seen and examined this patient.: Yes I have fully participated in the care of the patient.: Yes I have reviewed all pertinent clinical information: Yes Notes (Text): 10/04/16 19:20 Patient seen and examined at bedside this am. This is a 86 year old M presented with acute onset of abdominal pain associated with fevers and chills in setting of acute cholecystitis and acute pancreatitis due to gallstones. Continue aggressive IVF with LR at 150cc/hr, BUN and Hct improved today. MRCP negative for choledocholithiasis. No indication for ERCP. Surgical evaluation for cholecystectomy. Supportive care. daily LFT trend. NPO status.
--- NOTE | 2016-10-04 15:17 | PQF GENQUE ---
Dr. Hamilton, (1)Sepsis ruled in or Sepsis ruled out? (2) If ruled in: Etiology (s) of Sepsis if known? ID consult: ID: asked to see this patient at the request of for rule out sepsis 1) Cholecystitis, acute Status: Acute (2) Acute pancreatitis Status: Acute (3) Leukocytosis Status: Acute (4) Fever Status: Acute Assessment; A/P- 86 year old male with DM II, HTN, hyperlipidemia admitted with abd pain, fever and leukocytosis foudn to have cholecystitis and gallstome pancreatitis. c. High leukocytosis present.MRCP neg for Choledocholithiasis . left middle DIP necrotic ulceras per GI note ERCP planned. as per surgical note cholecystectomy once pancreatitis is resolved. advise to also check ESR and MRI of the left DIP digit to rule out OM. -in light of the high wbc and pancreatitis and fever and high lactate on admission, advise to switch to meropenem for broader gram neg and anaerobic coverage Critical Care note;. Impression: Acute Pancreatitis -secondary to cholelithiasis or choledocholithiasis , febrile,leukocytosis with lef shift deviation,-lipase increased [id number] trending down 3990 -CTAbd: Cholelithiasis.Prominence of the pancreatic head with adjacent inflammatory change and mild ductal dilatation, findings suggest pancreatitis - GI suggesting MRCP -MRCP:cholelithiasis with pericholecystic fluid suspicisous for acute cholecystitis. 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 2) Acute cholecystitis -RUQ abd pain , febrile -MRCP:cholelithiasis with pericholecystic fluid suspicisous for acute cholecystitis -Surgery consult suggested -As per surgery resident probably lap aixa will be after pancreatitis is resolved 3) Transaminitis -Secondary to pancreatitis and cholecystitis -AST 296 ALT 349 WBC:17.4->22.5 left shift ABG:Lactate: 2.6->3.8 Temp:100.5->98.7----- >10/04@03:04:100.8->100.4 This form is a permanent part of the medical record Clarification of your documentation is requested to better reflect the severity of illness and intensity of treatment of your patient. Indicators present [] Specify: [] [] Specify: [] [] Specify: [] [] Specify: [] Location in the medical record that reflects the above clinical findings: [] Treatment Provided: [] PHYSICIAN'S RESPONSE Sepsis POA sec to Acute Cholecystitis and Pancreatitis Based on your medical judgment of the clinical indicators outlined above please clarify the following: [] Practitioner response [] If unable to determine, please check the box, sign and date. Present On Admission (POA) Indicator: [] Present at the time of admission [] Not present at the time of admission [] Clinically Undetermined In responding to this query, please exercise your independent professional judgment. The fact that a question is asked does not imply that any particular answer is desired or expected. Thank you for your clarification on this documentation. If you have any questions please call. * Thank you, Vandana Sanchez RN BSN ext. #[phone] MTDD
--- NOTE | 2016-10-04 15:41 | CP.PCM.PN ---
Subjective - Date & Time of Evaluation Date of Evaluation: 10/04/16 Time of Evaluation: 11:00 - Subjective Subjective: Febrile 100.8 this am still with abd pain no nausea norvomiting denies CP no SOB Family at bedside - son and daughter - discussed test results, diagnoses and treatment plan with pt and children Full Code - Surrogate decision maker - spouse Objective - Vital Signs/Intake and Output Vital Signs (last 24 hours): Temp Pulse Resp BP Pulse Ox 99.0 F 67 16 122/56 L 95 10/04/16 12:06 10/04/16 14:00 10/04/16 14:00 10/04/16 14:00 10/04/16 14:00 Intake and Output: 10/04/16 10/04/16 06:59 18:59 Intake Total 1450 1050 Output Total 1300 500 Balance 150 550 - Medications Medications: Current Medications Acetaminophen (Tylenol 650 Mg Supp) 650 mg MI Q6 PRN PRN Reason: Fever >100.4 F Last Admin: 10/04/16 03:20 Dose: 650 mg Dextrose (Dextrose 50% Inj) 0 ml IV STAT PRN; Protocol PRN Reason: Hyglycemia Protocol Dextrose (Glutose 15) 0 gm PO ONCE PRN; Protocol PRN Reason: Hypoglycemia Protocol Enoxaparin Sodium (Lovenox) 40 mg SC DAILY SUDHA PRN Reason: Protocol Last Admin: 10/04/16 08:20 Dose: 40 mg Famotidine (Pepcid) 20 mg IVP DAILY SUDHA Last Admin: 10/04/16 08:20 Dose: 20 mg Glucagon (Glucagen Diagnostic Kit) 0 mg IM STAT PRN; Protocol PRN Reason: Hypoglycemia Protocol Hydromorphone HCl (Dilaudid) 0.5 mg IVP RQ4PRN PRN PRN Reason: Pain, severe (8-10) Last Admin: 10/04/16 03:02 Dose: 0.5 mg Lactated Ringer's (Lactated Ringer's) 1,000 mls @ 1,000 mls/hr IV .Q1H SUDHA Last Admin: 10/03/16 19:18 Dose: 1,000 mls/hr Lactated Ringer's (Lactated Ringer's) 1,000 mls @ 1,000 mls/hr IV .Q1H SUDHA Last Admin: 10/03/16 20:53 Dose: 1,000 mls/hr Sodium Chloride (Sodium Chloride 0.9%) 1,000 mls @ 150 mls/hr IV .Q6H40M SUDHA Stop: 10/06/16 21:14 Last Admin: 10/04/16 12:56 Dose: 150 mls/hr Lactated Ringer's (Lactated Ringer's) 1,000 mls @ 200 mls/hr IV .Q5H SUDHA Meropenem 1 gm/ Sodium (Chloride) 100 mls @ 100 mls/hr IVPB Q8 SUDHA Metronidazole (Flagyl 500mg/100ml Ns) 100 mls @ 100 mls/hr IVPB Q8 SUDHA Insulin Human Regular (Humulin R) 0 units SC ACHS SUDHA PRN Reason: Protocol Last Admin: 10/04/16 11:06 Dose: Not Given Ondansetron HCl (Zofran Inj) 4 mg IVP Q6 PRN PRN Reason: Nausea/Vomiting - Labs Labs: 10/04/16 04:25 10/04/16 04:25 PT 11.3 Seconds (9.8-13.1) 10/03/16 17:20 INR 1.1 (0.9-1.2) 10/03/16 17:20 APTT 29.2 Seconds (25.6-37.1) 10/03/16 17:20 - Constitutional Appears: No Acute Distress - Head Exam Head Exam: NORMAL INSPECTION, NORMOCEPHALIC - Eye Exam Eye Exam: EOMI, Normal appearance Pupil Exam: NORMAL ACCOMODATION - ENT Exam ENT Exam: Mucous Membranes Dry, Normal External Ear Exam - Neck Exam Neck Exam: Full ROM. absent: Meningismus - Respiratory Exam Respiratory Exam: NORMAL BREATHING PATTERN. absent: Rales, Wheezes, Respiratory Distress - Cardiovascular Exam Cardiovascular Exam: REGULAR RHYTHM, +S1, +S2 - GI/Abdominal Exam GI & Abdominal Exam: Distended, Soft, Tenderness, Normal Bowel Sounds - Extremities Exam Extremities Exam: Full ROM, Normal Capillary Refill. absent: Calf Tenderness, Pedal Edema Additional comments: left middle finger - distal portion with old, dry eschar - Back Exam Back Exam: Full ROM. absent: CVA tenderness (L), CVA tenderness (R) - Neurological Exam Neurological Exam: Alert, Awake, CN II-XII Intact, Oriented x3 Neuro motor strength exam: Left Upper Extremity: 5, Right Upper Extremity: 5, Left Lower Extremity: 5, Right Lower Extremity: 5 - Psychiatric Exam Psychiatric exam: Normal Affect, Normal Mood - Skin Skin Exam: Dry, Normal Color, Warm Assessment and Plan (1) Sepsis Status: Acute (2) Acute gallstone pancreatitis Status: Acute (3) Cholecystitis, acute Status: Acute (4) DM type 2 (diabetes mellitus, type 2) Status: Chronic (5) HTN (hypertension) Status: Chronic (6) DVT prophylaxis Status: Acute - Assessment and Plan (Free Text) Assessment: 86 y/o gent with known Hx of HTN, DM, Carotid Stenosis, BPH came in bec of abd pain. Found to have Elevated lipase, abn LFT, elevated WBC ct . CT of the abdomen : Prominence of the pancreatic head with adjacent inflammatory change and mild ductal dilatation, findings suggest pancreatitis , underlying neoplasm cannot be excluded; gallstone; no renal or ureteral stones or hydronephrosis; no CT findings of appendicitis or diverticulitis (1) Sepsis sec to Cholecystitis, Pancreatitis Status: Acute Elevated WBC to 22k, elevated lactate level started on IV cefepime and Flagyl ID consult - Dr Bergman Blood c/s IVF hydration ICU monitoring (2) Acute gallstone pancreatitis Status: Acute Surgery consult GI consult- discussed case with Dr Ramirez- rec ERCP poss EUS IVF hydration Pain mgt IV abx MRCPCardio consult for cardiac optimization (3) Cholecystitis, acute Status: Acute Surgery consult as above (4) DM type 2 (diabetes mellitus, type 2) Status: Chronic Hold oral hypoglycemics accucheck (5) HTN (hypertension) Status: Chronic will start IV antihypertensives if BP elevated 6. Carotid Stenosis , history ECHO Carotid Sono Cardio consult (7) DVT prophylaxis Status: Acute Lovenox
[2016-10-04] MEDS: Meropenem 1 GM in Sodium Chloride 0.9% 100 ML IVPB SCH (16:08)
[2016-10-04] MEDS: metroNIDAZOLE 500mg/100ml NS 100 ML IVPB SCH (16:25)
[2016-10-05] MEDS: Meropenem 1 GM in Sodium Chloride 0.9% 100 ML IVPB SCH ×3 (00:07→18:14)
[2016-10-05] MEDS: metroNIDAZOLE 500mg/100ml NS 100 ML IVPB SCH ×3 (00:10→16:56)
[2016-10-05 05:13] LABS: BASO % 0.2 % (0.0-2.0); EOS % 0.2 % (0.0-4.0); HEMATOCRIT 36.6 % (35.0-51.0); LYMPH # 0.4 K/uL (1.0-4.3); LYMPH % 4.9 % (20.0-40.0); MEAN CELL VOLUME 82.9 fl (80.0-94.0); MEAN CORPUSCULAR HEMOGLOBIN 26.7 pg (27.0-31.0); MEAN CORPUSCULAR HGB CONC 32.2 g/dL (33.0-37.0); MEAN PLATELET VOLUME 9.7 fl (7.2-11.7); MONO # 0.7 K/uL (0.0-0.8); MONO % 8.3 % (0.0-10.0); NEUT # 7.8 K/uL (1.8-7.0); NEUT % 86.4 % (50.0-75.0); RED CELL DISTRIBUTION WIDTH 14.8 % (11.5-14.5)
[2016-10-05 05:28] LABS: ALB/GLOB RATIO 1.2 (1.0-2.1); ALKALINE PHOSPHATASE 112 U/L (38-126); ALT/SGPT 236 U/L (21-72); AST/SGOT 128 U/L (17-59); BILIRUBIN,TOTAL 1.9 mg/dl (0.2-1.3); BLOOD UREA NITROGEN 22 mg/dl (9-20); CALCIUM 7.7 mg/dL (8.4-10.2); CARBON DIOXIDE 20 mmol/L (22-30); CHLORIDE 109 mmol/L (98-107); GFR AFRICAN-AMERICAN > 60; GLUCOSE,RANDOM 87 mg/dL (75-110); LIPASE 305 U/L (23-300); MAGNESIUM 2.3 MG/DL (1.6-2.3); PHOSPHOROUS 2.2 mg/dl (2.5-4.5); POTASSIUM 3.9 MMOL/L (3.6-5.0); SODIUM 138 mmol/l (132-148); TOTAL PROTEIN 5.9 G/DL (6.3-8.2)
[2016-10-05] MEDS: Insulin Regular 100 units/ml SC SCH ×4 (06:33→21:50)
--- NOTE | 2016-10-05 07:38 | CARD ---
APPROVED REPORT EKG Measurement Heart [id number] <Conclusion> Normal sinus rhythm Incomplete right bundle branch block Borderline ECG
--- NOTE | 2016-10-05 07:45 | CP.CCUPN ---
<Alice Song - Last Filed: 10/05/16 11:33> CCU Subjective - Physician Review Subjective (Free Text): 10/05/16 07:45 Patient seen and examined bedside. Reports had abdominal pain yesterday afternoon that subsided with pain medication. No overnight events. denies in the morning N/V, abd pain, fever. On NPO, afebrile for 24 hours. No ERCP for today. Pending surgery decision for cholecystectomy. Patient will be transferred to floor. CCU Objective - Vital Signs / Intake & Output Vital Signs (Last 4 hours): Vital Signs Temp Pulse Resp BP Pulse Ox 10/05/16 06:00 55 L 13 147/67 95 10/05/16 04:00 98.1 F 61 16 148/70 96 Intake and Output (Last 8hrs): Intake & Output 10/04/16 10/05/16 10/05/16 22:59 06:59 14:59 Intake Total 1250 1050 Output Total 700 800 Balance 550 250 Intake: IV 1050 850 Intake, Piggyback 200 200 Oral 0 0 Output: Urine 700 800 Urine, Voided 700 800 Other: # Voids Urine, Voided 1 1 # Bowel Movements 0 - Physical Exam Head: Positive for: Atraumatic, Normocephalic Conjunctiva: Positive for: Normal Mouth: Positive for: Moist Mucous Membranes Respiratory/Chest: Positive for: Clear to Auscultation, Good Air Exchange. Negative for: Wheezes, Rhonchi Cardiovascular: Positive for: Regular Rate and Rhythm, Normal S1, S2. Negative for: Murmurs Abdomen: Positive for: Tenderness (Mild TD on epigastrium and on RUP, Neg Sandhu 's sign), Normal Bowel Sounds. Negative for: Distention, Rebound, Guarding Upper Extremity: Positive for: Other (3rd left fingertip with small 0.5 cm hematoma) Lower Extremity: Positive for: Normal Inspection. Negative for: Edema Neurological: Positive for: Speech Normal, Motor Func Grossly Intact Skin: Positive for: Warm, Normal Color Psychiatric: Positive for: Alert, Oriented x 3 - Medications Active Medications: Active Medications Generic Name Dose Route Start Last Admin Trade Name Freq PRN Reason Stop Dose Admin Acetaminophen 650 mg 10/04/16 03:14 10/04/16 03:20 Tylenol 650 Mg Supp SC 650 mg Q6 PRN Administration Fever >100.4 F Dextrose 0 ml 10/03/16 21:26 Dextrose 50% Inj IV STAT PRN Hyglycemia Protocol Protocol Dextrose 0 gm 10/03/16 21:26 Glutose 15 PO ONCE PRN Hypoglycemia Protocol Protocol Enoxaparin Sodium 40 mg 10/04/16 09:00 10/04/16 08:20 Lovenox SC 40 mg DAILY SUDHA Administration Protocol Famotidine 20 mg 10/04/16 09:00 10/04/16 08:20 Pepcid IVP 20 mg DAILY SUDHA Administration Glucagon 0 mg 10/03/16 21:26 Glucagen Diagnostic Kit IM STAT PRN Hypoglycemia Protocol Protocol Hydromorphone HCl 0.5 mg 10/04/16 02:56 10/04/16 21:35 Dilaudid IVP 0.5 mg RQ4PRN PRN Administration Pain, severe (8-10) Lactated Ringer's 1,000 mls @ 1,000 mls/hr 10/03/16 19:15 10/03/16 19:18 Lactated Ringer's IV 1,000 mls/hr .Q1H SUDHA Administration Lactated Ringer's 1,000 mls @ 1,000 mls/hr 10/03/16 20:30 10/03/16 20:53 Lactated Ringer's IV 1,000 mls/hr .Q1H SUDHA Administration Sodium Chloride 1,000 mls @ 150 mls/hr 10/03/16 21:15 10/04/16 23:19 Sodium Chloride 0.9% IV 10/06/16 21:14 150 mls/hr .Q6H40M SUDHA Administration Lactated Ringer's 1,000 mls @ 200 mls/hr 10/03/16 23:15 Lactated Ringer's IV .Q5H SUDHA Meropenem 1 gm/ Sodium 100 mls @ 100 mls/hr 10/04/16 17:00 10/05/16 00:07 Chloride IVPB 100 mls/hr Q8 SUDHA Administration Metronidazole 100 mls @ 100 mls/hr 10/04/16 17:00 10/05/16 00:10 Flagyl 500mg/100ml Ns IVPB 100 mls/hr Q8 SUDHA Administration Insulin Human Regular 0 units 10/03/16 22:00 10/05/16 06:33 Humulin R SC Not Given ACHS SUDHA Protocol Ondansetron HCl 4 mg 10/03/16 21:15 Zofran Inj IVP Q6 PRN Nausea/Vomiting - Patient Studies Lab Studies: Lab Studies 10/05/16 10/05/16 10/05/16 Range/Units 04:55 04:55 04:55 WBC 9.0 D (4.8-10.8) K/uL RBC 4.42 (4.40-5.90) Mil/uL Hgb 11.8 L (12.0-18.0) g/dL Hct 36.6 (35.0-51.0) % MCV 82.9 (80.0-94.0) fl MCH 26.7 L (27.0-31.0) pg MCHC 32.2 L (33.0-37.0) g/dL RDW 14.8 H (11.5-14.5) % Plt Count 95 L D (130-400) K/uL MPV 9.7 (7.2-11.7) fl Neut % (Auto) 86.4 H (50.0-75.0) % Lymph % (Auto) 4.9 L (20.0-40.0) % [place] % (Auto) 8.3 (0.0-10.0) % Eos % (Auto) 0.2 (0.0-4.0) % Baso % (Auto) 0.2 (0.0-2.0) % Neut # 7.8 H (1.8-7.0) K/uL Lymph # 0.4 L (1.0-4.3) K/uL [place] # 0.7 (0.0-0.8) K/uL Eos # 0.0 (0.0-0.7) K/uL Baso # 0.0 (0.0-0.2) K/uL ESR (0-20) mm/hr PT 14.9 H (9.8-13.1) Seconds INR 1.4 H (0.9-1.2) Sodium 138 (132-148) mmol/l Potassium 3.9 (3.6-5.0) MMOL/L Chloride 109 H (98-107) mmol/L Carbon Dioxide 20 L (22-30) mmol/L Anion Gap 13 (10-20) BUN 22 H (9-20) mg/dl Creatinine 0.9 (0.8-1.5) mg/dL Est GFR ( Amer) > 60 Est GFR (Non-Af Amer) > 60 POC Glucose (mg/dL) (65-110) mg/dL Random Glucose 87 (75-110) mg/dL Hemoglobin A1c (4.2-6.5) % Calcium 7.7 L (8.4-10.2) mg/dL Phosphorus 2.2 L (2.5-4.5) mg/dl Magnesium 2.3 (1.6-2.3) MG/DL Total Bilirubin 1.9 H (0.2-1.3) mg/dl Direct Bilirubin 1.2 H (0.0-0.4) mg/ml AST 128 H D (17-59) U/L ALT 236 H D (21-72) U/L Alkaline Phosphatase 112 (38-126) U/L Lactate Dehydrogenase 424 (313-618) U/L Total Protein 5.9 L (6.3-8.2) G/DL Albumin 3.2 L (3.5-5.0) g/dL Globulin 2.7 (2.2-3.9) gm/dL Albumin/Globulin Ratio 1.2 (1.0-2.1) Triglycerides (0-149) mg/DL Cholesterol (0-199) mg/dL LDL Cholesterol Direct (0-129) mg/dL HDL Cholesterol (30-70) MG/DL Lipase 305 H (23-300) U/L Urine Color (YELLOW) Urine Clarity (Clear) Urine pH (5.0-8.0) Ur Specific [place] (1.003-1.030) Urine Protein (NEGATIVE) mg/dL Urine Glucose (UA) (Normal) mg/dL Urine Ketones (NEGATIVE) mg/dL Urine Blood (NEGATIVE) Urine Nitrate (NEGATIVE) Urine Bilirubin (NEGATIVE) Urine Urobilinogen (0.2-1.0) mg/dL Ur Leukocyte Esterase (Negative) Carol/uL Urine RBC (Auto) (0-3) /hpf Urine Microscopic WBC (0-5) /hpf Ur Squamous Epith Cells (0-5) /hpf 10/05/16 10/04/16 10/04/16 Range/Units 04:36 21:23 15:57 WBC (4.8-10.8) K/uL RBC (4.40-5.90) Mil/uL Hgb (12.0-18.0) g/dL Hct (35.0-51.0) % MCV (80.0-94.0) fl MCH (27.0-31.0) pg MCHC (33.0-37.0) g/dL RDW (11.5-14.5) % Plt Count (130-400) K/uL MPV (7.2-11.7) fl Neut % (Auto) (50.0-75.0) % Lymph % (Auto) (20.0-40.0) % [place] % (Auto) (0.0-10.0) % Eos % (Auto) (0.0-4.0) % Baso % (Auto) (0.0-2.0) % Neut # (1.8-7.0) K/uL Lymph # (1.0-4.3) K/uL [place] # (0.0-0.8) K/uL Eos # (0.0-0.7) K/uL Baso # (0.0-0.2) K/uL ESR (0-20) mm/hr PT (9.8-13.1) Seconds INR (0.9-1.2) Sodium (132-148) mmol/l Potassium (3.6-5.0) MMOL/L Chloride (98-107) mmol/L Carbon Dioxide (22-30) mmol/L Anion Gap (10-20) BUN (9-20) mg/dl Creatinine (0.8-1.5) mg/dL Est GFR ( Amer) Est GFR (Non-Af Amer) POC Glucose (mg/dL) 83 87 93 (65-110) mg/dL Random Glucose (75-110) mg/dL Hemoglobin A1c (4.2-6.5) % Calcium (8.4-10.2) mg/dL Phosphorus (2.5-4.5) mg/dl Magnesium (1.6-2.3) MG/DL Total Bilirubin (0.2-1.3) mg/dl Direct Bilirubin (0.0-0.4) mg/ml AST (17-59) U/L ALT (21-72) U/L Alkaline Phosphatase (38-126) U/L Lactate Dehydrogenase (313-618) U/L Total Protein (6.3-8.2) G/DL Albumin (3.5-5.0) g/dL Globulin (2.2-3.9) gm/dL Albumin/Globulin Ratio (1.0-2.1) Triglycerides (0-149) mg/DL Cholesterol (0-199) mg/dL LDL Cholesterol Direct (0-129) mg/dL HDL Cholesterol (30-70) MG/DL Lipase (23-300) U/L Urine Color (YELLOW) Urine Clarity (Clear) Urine pH (5.0-8.0) Ur Specific [place] (1.003-1.030) Urine Protein (NEGATIVE) mg/dL Urine Glucose (UA) (Normal) mg/dL Urine Ketones (NEGATIVE) mg/dL Urine Blood (NEGATIVE) Urine Nitrate (NEGATIVE) Urine Bilirubin (NEGATIVE) Urine Urobilinogen (0.2-1.0) mg/dL Ur Leukocyte Esterase (Negative) Carol/uL Urine RBC (Auto) (0-3) /hpf Urine Microscopic WBC (0-5) /hpf Ur Squamous Epith Cells (0-5) /hpf 10/04/16 10/04/16 10/04/16 Range/Units 15:27 11:04 08:20 WBC (4.8-10.8) K/uL RBC (4.40-5.90) Mil/uL Hgb (12.0-18.0) g/dL Hct (35.0-51.0) % MCV (80.0-94.0) fl MCH (27.0-31.0) pg MCHC (33.0-37.0) g/dL RDW (11.5-14.5) % Plt Count (130-400) K/uL MPV (7.2-11.7) fl Neut % (Auto) (50.0-75.0) % Lymph % (Auto) (20.0-40.0) % [place] % (Auto) (0.0-10.0) % Eos % (Auto) (0.0-4.0) % Baso % (Auto) (0.0-2.0) % Neut # (1.8-7.0) K/uL Lymph # (1.0-4.3) K/uL [place] # (0.0-0.8) K/uL Eos # (0.0-0.7) K/uL Baso # (0.0-0.2) K/uL ESR 19 (0-20) mm/hr PT (9.8-13.1) Seconds INR (0.9-1.2) Sodium (132-148) mmol/l Potassium (3.6-5.0) MMOL/L Chloride (98-107) mmol/L Carbon Dioxide (22-30) mmol/L Anion Gap (10-20) BUN (9-20) mg/dl Creatinine (0.8-1.5) mg/dL Est GFR ( Amer) Est GFR (Non-Af Amer) POC Glucose (mg/dL) 107 (65-110) mg/dL Random Glucose (75-110) mg/dL Hemoglobin A1c (4.2-6.5) % Calcium (8.4-10.2) mg/dL Phosphorus (2.5-4.5) mg/dl Magnesium (1.6-2.3) MG/DL Total Bilirubin (0.2-1.3) mg/dl Direct Bilirubin (0.0-0.4) mg/ml AST (17-59) U/L ALT (21-72) U/L Alkaline Phosphatase (38-126) U/L Lactate Dehydrogenase (313-618) U/L Total Protein (6.3-8.2) G/DL Albumin (3.5-5.0) g/dL Globulin (2.2-3.9) gm/dL Albumin/Globulin Ratio (1.0-2.1) Triglycerides (0-149) mg/DL Cholesterol (0-199) mg/dL LDL Cholesterol Direct (0-129) mg/dL HDL Cholesterol (30-70) MG/DL Lipase (23-300) U/L Urine Color Yellow (YELLOW) Urine Clarity Clear (Clear) Urine pH 6.0 (5.0-8.0) Ur Specific [place] 1.013 (1.003-1.030) Urine Protein Negative (NEGATIVE) mg/dL Urine Glucose (UA) Neg (Normal) mg/dL Urine Ketones Negative (NEGATIVE) mg/dL Urine Blood Negative (NEGATIVE) Urine Nitrate Negative (NEGATIVE) Urine Bilirubin Negative (NEGATIVE) Urine Urobilinogen 0.2-1.0 (0.2-1.0) mg/dL Ur Leukocyte Esterase Neg (Negative) Carol/uL Urine RBC (Auto) 3 (0-3) /hpf Urine Microscopic WBC < 1 (0-5) /hpf Ur Squamous Epith Cells < 1 (0-5) /hpf 10/04/16 10/04/16 Range/Units 04:30 04:25 WBC (4.8-10.8) K/uL RBC (4.40-5.90) Mil/uL Hgb (12.0-18.0) g/dL Hct (35.0-51.0) % MCV (80.0-94.0) fl MCH (27.0-31.0) pg MCHC (33.0-37.0) g/dL RDW (11.5-14.5) % Plt Count (130-400) K/uL MPV (7.2-11.7) fl Neut % (Auto) (50.0-75.0) % Lymph % (Auto) (20.0-40.0) % [place] % (Auto) (0.0-10.0) % Eos % (Auto) (0.0-4.0) % Baso % (Auto) (0.0-2.0) % Neut # (1.8-7.0) K/uL Lymph # (1.0-4.3) K/uL [place] # (0.0-0.8) K/uL Eos # (0.0-0.7) K/uL Baso # (0.0-0.2) K/uL ESR (0-20) mm/hr PT (9.8-13.1) Seconds INR (0.9-1.2) Sodium (132-148) mmol/l Potassium (3.6-5.0) MMOL/L Chloride (98-107) mmol/L Carbon Dioxide (22-30) mmol/L Anion Gap (10-20) BUN (9-20) mg/dl Creatinine (0.8-1.5) mg/dL Est GFR ( Amer) Est GFR (Non-Af Amer) POC Glucose (mg/dL) (65-110) mg/dL Random Glucose (75-110) mg/dL Hemoglobin A1c 6.2 (4.2-6.5) % Calcium (8.4-10.2) mg/dL Phosphorus (2.5-4.5) mg/dl Magnesium (1.6-2.3) MG/DL Total Bilirubin (0.2-1.3) mg/dl Direct Bilirubin (0.0-0.4) mg/ml AST (17-59) U/L ALT (21-72) U/L Alkaline Phosphatase (38-126) U/L Lactate Dehydrogenase (313-618) U/L Total Protein (6.3-8.2) G/DL Albumin (3.5-5.0) g/dL Globulin (2.2-3.9) gm/dL Albumin/Globulin Ratio (1.0-2.1) Triglycerides 53 (0-149) mg/DL Cholesterol 126 (0-199) mg/dL LDL Cholesterol Direct 86 (0-129) mg/dL HDL Cholesterol 27 L (30-70) MG/DL Lipase (23-300) U/L Urine Color (YELLOW) Urine Clarity (Clear) Urine pH (5.0-8.0) Ur Specific [place] (1.003-1.030) Urine Protein (NEGATIVE) mg/dL Urine Glucose (UA) (Normal) mg/dL Urine Ketones (NEGATIVE) mg/dL Urine Blood (NEGATIVE) Urine Nitrate (NEGATIVE) Urine Bilirubin (NEGATIVE) Urine Urobilinogen (0.2-1.0) mg/dL Ur Leukocyte Esterase (Negative) Carol/uL Urine RBC (Auto) (0-3) /hpf Urine Microscopic WBC (0-5) /hpf Ur Squamous Epith Cells (0-5) /hpf Laboratory Results - last 24 hr 10/04/16 10/04/16 10/04/16 04:25 04:30 08:20 WBC RBC Hgb Hct MCV MCH MCHC RDW Plt Count MPV Neut % (Auto) Lymph % (Auto) [place] % (Auto) Eos % (Auto) Baso % (Auto) Neut # Lymph # [place] # Eos # Baso # ESR PT INR Sodium Potassium Chloride Carbon Dioxide Anion Gap BUN Creatinine Est GFR ( Amer) Est GFR (Non-Af Amer) POC Glucose (mg/dL) Random Glucose Hemoglobin A1c 6.2 Calcium Phosphorus Magnesium Total Bilirubin Direct Bilirubin AST ALT Alkaline Phosphatase Lactate Dehydrogenase Total Protein Albumin Globulin Albumin/Globulin Ratio Triglycerides 53 Cholesterol 126 LDL Cholesterol Direct 86 HDL Cholesterol 27 L Lipase Urine Color Yellow Urine Clarity Clear Urine pH 6.0 Ur Specific [place] 1.013 Urine Protein Negative Urine Glucose (UA) Neg Urine Ketones Negative Urine Blood Negative Urine Nitrate Negative Urine Bilirubin Negative Urine Urobilinogen 0.2-1.0 Ur Leukocyte Esterase Neg Urine RBC (Auto) 3 Urine Microscopic WBC < 1 Ur Squamous Epith Cells < 1 10/04/16 10/04/16 10/04/16 11:04 15:27 15:57 WBC RBC Hgb Hct MCV MCH MCHC RDW Plt Count MPV Neut % (Auto) Lymph % (Auto) [place] % (Auto) Eos % (Auto) Baso % (Auto) Neut # Lymph # [place] # Eos # Baso # ESR 19 PT INR Sodium Potassium Chloride Carbon Dioxide Anion Gap BUN Creatinine Est GFR ( Amer) Est GFR (Non-Af Amer) POC Glucose (mg/dL) 107 93 Random Glucose Hemoglobin A1c Calcium Phosphorus Magnesium Total Bilirubin Direct Bilirubin AST ALT Alkaline Phosphatase Lactate Dehydrogenase Total Protein Albumin Globulin Albumin/Globulin Ratio Triglycerides Cholesterol LDL Cholesterol Direct HDL Cholesterol Lipase Urine Color Urine Clarity Urine pH Ur Specific [place] Urine Protein Urine Glucose (UA) Urine Ketones Urine Blood Urine Nitrate Urine Bilirubin Urine Urobilinogen Ur Leukocyte Esterase Urine RBC (Auto) Urine Microscopic WBC Ur Squamous Epith Cells 10/04/16 10/05/16 10/05/16 21:23 04:36 04:55 WBC 9.0 D RBC 4.42 Hgb 11.8 L Hct 36.6 MCV 82.9 MCH 26.7 L MCHC 32.2 L RDW 14.8 H Plt Count 95 L D MPV 9.7 Neut % (Auto) 86.4 H Lymph % (Auto) 4.9 L [place] % (Auto) 8.3 Eos % (Auto) 0.2 Baso % (Auto) 0.2 Neut # 7.8 H Lymph # 0.4 L [place] # 0.7 Eos # 0.0 Baso # 0.0 ESR PT INR Sodium Potassium Chloride Carbon Dioxide Anion Gap BUN Creatinine Est GFR ( Amer) Est GFR (Non-Af Amer) POC Glucose (mg/dL) 87 83 Random Glucose Hemoglobin A1c Calcium Phosphorus Magnesium Total Bilirubin Direct Bilirubin AST ALT Alkaline Phosphatase Lactate Dehydrogenase Total Protein Albumin Globulin Albumin/Globulin Ratio Triglycerides Cholesterol LDL Cholesterol Direct HDL Cholesterol Lipase Urine Color Urine Clarity Urine pH Ur Specific [place] Urine Protein Urine Glucose (UA) Urine Ketones Urine Blood Urine Nitrate Urine Bilirubin Urine Urobilinogen Ur Leukocyte Esterase Urine RBC (Auto) Urine Microscopic WBC Ur Squamous Epith Cells 10/05/16 10/05/16 04:55 04:55 WBC RBC Hgb Hct MCV MCH MCHC RDW Plt Count MPV Neut % (Auto) Lymph % (Auto) [place] % (Auto) Eos % (Auto) Baso % (Auto) Neut # Lymph # [place] # Eos # Baso # ESR PT 14.9 H INR 1.4 H Sodium 138 Potassium 3.9 Chloride 109 H Carbon Dioxide 20 L Anion Gap 13 BUN 22 H Creatinine 0.9 Est GFR ( Amer) > 60 Est GFR (Non-Af Amer) > 60 POC Glucose (mg/dL) Random Glucose 87 Hemoglobin A1c Calcium 7.7 L Phosphorus 2.2 L Magnesium 2.3 Total Bilirubin 1.9 H Direct Bilirubin 1.2 H AST 128 H D ALT 236 H D Alkaline Phosphatase 112 Lactate Dehydrogenase 424 Total Protein 5.9 L Albumin 3.2 L Globulin 2.7 Albumin/Globulin Ratio 1.2 Triglycerides Cholesterol LDL Cholesterol Direct HDL Cholesterol Lipase 305 H Urine Color Urine Clarity Urine pH Ur Specific [place] Urine Protein Urine Glucose (UA) Urine Ketones Urine Blood Urine Nitrate Urine Bilirubin Urine Urobilinogen Ur Leukocyte Esterase Urine RBC (Auto) Urine Microscopic WBC Ur Squamous Epith Cells Fingerstick Blood Sugar Results: 83 Review of Systems - Cardiovascular Cardiovascular: absent: Chest Pain - Respiratory Respiratory: absent: Cough, Dyspnea - Gastrointestinal Gastrointestinal: Abdominal Pain Critical Care Progress Note - Extremities/Vascular Does the Patient have a Central Venous Catheter?: No - Prophylaxis DVT Prophylaxis DVT: SCDs Assessment/Plan - Assessment and Plan (Free Text) Plan: 86 yo ,m, PMhx/o DM , HTN presents c/o chills for the last 4 days prior to admission and RUQ abdominal pain started yesterday afternoon, radiated to the back, not associated with N/V/D, jaundice. Patient admitted in ICU for Acute Pancreatitis. 1) Acute Pancreatitis -secondary to cholelithiasis or choledocholithiasis -resolving, afebrile for 24 hours -Labs reviewed -WBc trending down 22-9 -lipase trending down [id number] -CTAbd: Cholelithiasis.Prominence of the pancreatic head with adjacent inflammatory change and mild ductal dilatation, findings suggest pancreatitis -GI consult appreciated: MRCP w/o choledocholithiasis. no ERCP needed today -MRCP:cholelithiasis with pericholecystic fluid suspicisous for acute cholecystitis. 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 -Surgery Consult appreciated: Surgery possible for Sunday after recovering from pancreatitis.will start liquid diet -ID consult appreciated: Meropenen,flagyl -pain meds Dilaudid 0.5 mg IV Q4h PRN pain -pepcid 20 mg IV daily -Iv fluids switched to RL 125ml/h 2) Acute cholecystitis -MRCP:cholelithiasis with pericholecystic fluid suspicisous for acute cholecystitis -Surgery consult appreciated:Surgery possible for sunday afer recovering from pancreatitis -Cardiology consult suggested for clearance -ECho:mild concentric LVH. Nl LV systolic function.EF 70 % -Carotid US: no significant stenosis B/L commun or internal carotid arteries 3) Transaminitis -Secondary to pancreatitis and cholecystitis -tending down. AST/ALT 296/349-128/236 4) Thrombocytopenia -platelets 95 5) Hypophosphatemia Moderate - Ph:2.2 -KPh 30 mmol IV -f/u Ph tomorrow 6) DM -Insulin Humulin sliding scale -Hypoglycemia protocol -Hgb a1c 6.3 03/2016 7) HTN -controlled -Held home med Benicar 8) DVT prophylasis -SCD.hold lovenox <LopezCesarn - Last Filed: 10/05/16 16:19> Assessment/Plan - Assessment and Plan (Free Text) Assessment: Attestation: Patient seen and examined at the bedside with Resident Dr. Raúl Song, and I agree with his outline of plans and management as documented and discussed on AM rounds reflecting my review of all applicable clinical data, and participation in the care of the patient throughout the day in ICU; today, October 05, 2016.
--- NOTE | 2016-10-05 07:46 | CARD ---
APPROVED REPORT EXAM: Two-dimensional and M-mode echocardiogram with Doppler and color Doppler. Other Information Quality : GoodRhythm : NSR INDICATION Pre-Op 2D DIMENSIONS IVSd0.80 (0.7-1.1cm)LVDd4.83 (3.9-5.9cm) LVOT Diameter2.23 (1.8-2.4cm)PWd1.04 (0.7-1.1cm) IVSs1.05 (0.8-1.2cm)LVDs3.02 (2.5-4.0cm) FS (%) 37.6 %PWs1.27 (0.8-1.2cm) M-Mode DIMENSIONS Left Atrium (MM)5.19 (2.5-4.0cm)IVSd1.32 (0.7-1.1cm) Aortic Root3.18 (2.2-3.7cm)LVDd5.39 (4.0-5.6cm) Aortic Cusp Exc.1.75 (1.5-2.0cm)PWd1.29 (0.7-1.1cm) IVSs1.65 cmFS (%) 50 % LVDs2.71 (2.0-3.8cm)PWs1.65 cm Mitral Valve MV E Cmlrouqo920.3cm/sMV DECEL [id number] A Sydpljma615.2cm/s MV SAU07rzF/A ratio1.0MVA (PHT)3.77cm2 TDI Lateral E' Peak V10.27cm/sMedial E' Peak V9.94cm/sE/Lateral E'9.9 E/Medial E'10.2 Pulmonary Valve PV Peak Orrovmoh47.9cm/s LEFT VENTRICLE The left ventricle is normal size. There is mild concentric left ventricular hypertrophy. Left ventricle systolic function is normal. The Ejection Fraction is >70%. There is normal LV segmental wall motion. Transmitral Doppler flow pattern is Grade I-abnormal relaxation pattern. RIGHT VENTRICLE The right ventricle is normal size. There is normal right ventricular wall thickness. The right ventricular systolic function is normal. ATRIA The left atrium is mildly dilated. The right atrium size is normal. AORTIC VALVE The aortic valve is mildly sclerotic. There is mild aortic regurgitation. There is no aortic valvular stenosis. MITRAL VALVE The mitral valve is normal in structure. There is no evidence of mitral valve prolapse. There is no mitral valve stenosis. Mitral regurgitation is mild. TRICUSPID VALVE The tricuspid valve is normal in structure and function. There is no tricuspid valve regurgitation noted. PULMONIC VALVE The pulmonary valve is normal in structure and function. There is no pulmonic valvular regurgitation. GREAT VESSELS The aortic root is normal in size. The IVC is dilated. The IVC collapses <50% with inspiration. PERICARDIAL EFFUSION The pericardium appears normal. <Conclusion> The left ventricle is normal size. There is mild concentric left ventricular hypertrophy. There is normal LV segmental wall motion. Left ventricle systolic function is normal. The Ejection Fraction is >70%. Transmitral Doppler flow pattern is Grade I-abnormal relaxation pattern. The IVC is dilated. The IVC collapses <50% with inspiration.
[2016-10-05] MEDS: Sodium Chloride 0.9% 1,000 ML IV SCH (08:33)
--- NOTE | 2016-10-05 08:44 | US ---
PROCEDURE: Duplex ultrasound of the carotid and vertebral arteries. HISTORY: hx of Carotid stenosis COMPARISON: None available. TECHNIQUE: Grayscale and duplex Doppler evaluation of the cervical carotid and vertebral arteries were performed. The common carotid, carotid bifurcations and cervical ICA and proximal ECA were evaluated. The vertebral arteries were evaluated for gross patency and direction. FINDINGS: RIGHT CAROTID ARTERIES: Common Carotid Artery: Normal. Maximal flow velocity of 75.5 cm/s. Carotid Bifurcation: Trace plaque at the carotid bulb. Internal Carotid Artery:Normal. Maximal flow velocity of 102.0 cm/s. External Carotid Artery (proximal branches): Turbulent blood flow is appreciated resulting in artifactually elevated velocity measurement on spectral analysis. Maximal flow velocity of 155.6 cm/s. ICA/CCA Ratio: 1.3 LEFT CAROTID ARTERIES: Common Carotid Artery: Normal. Maximal flow velocity of 102.1 cm/s. Carotid Bifurcation: Normal. Internal Carotid Artery:Normal. Maximal flow velocity of 120.9 cm/s. External Carotid Artery (proximal branches): Normal. Maximal flow velocity of 106.0 cm/s. ICA/CCA Ratio: 2.9 VERTEBRAL ARTERIES: Right Vertebral Artery: Patent. Antegrade flow. Left Vertebral Artery: Patent. Antegrade flow. OTHER FINDINGS: None. IMPRESSION: No significant stenosis bilateral common or internal carotid arteries. Trace plaque is identified at the right carotid bulb.
--- NOTE | 2016-10-05 10:08 | CP.PCM.PN ---
<Candy Chen - Last Filed: 10/05/16 10:06> Subjective - Date & Time of Evaluation Date of Evaluation: 10/05/16 Time of Evaluation: 07:45 - Subjective Subjective: GI Fellow PGY4 Progress Note Pt seen and examined at bedside, pt reports feeling a little better this am. Reports pain medication helped and last dose was last night. Denies any nausea, vomiting or diarrhea. Per nursing no events overnight. ROS: A 12pt ROS was negative except as above Objective - Vital Signs/Intake and Output Vital Signs (last 24 hours): Temp Pulse Resp BP Pulse Ox 98.5 F 60 19 160/65 H 97 10/05/16 08:00 10/05/16 08:00 10/05/16 08:00 10/05/16 08:00 10/05/16 08:00 Intake and Output: 10/05/16 10/05/16 06:59 18:59 Intake Total 1500 Output Total 1500 Balance 0 - Medications Medications: Current Medications Acetaminophen (Tylenol 650 Mg Supp) [address] Q6 PRN PRN Reason: Fever >100.4 F Last Admin: 10/04/16 03:20 Dose: 650 mg Dextrose (Dextrose 50% Inj) 0 ml IV STAT PRN; Protocol PRN Reason: Hyglycemia Protocol Dextrose (Glutose 15) 0 gm PO ONCE PRN; Protocol PRN Reason: Hypoglycemia Protocol Enoxaparin Sodium (Lovenox) 40 mg SC DAILY [facility] PRN Reason: Protocol Last Admin: 10/04/16 08:20 Dose: 40 mg Famotidine (Pepcid) 20 mg IVP DAILY [facility] Last Admin: 10/04/16 08:20 Dose: 20 mg Glucagon (Glucagen Diagnostic Kit) 0 mg IM STAT PRN; Protocol PRN Reason: Hypoglycemia Protocol Hydromorphone HCl (Dilaudid) 0.5 mg IVP RQ4PRN PRN PRN Reason: Pain, severe (8-10) Last Admin: 10/04/16 21:35 Dose: 0.5 mg Lactated Ringer's (Lactated Ringer's) 1,000 mls @ 1,000 mls/hr IV .Q1H [facility] Last Admin: 10/03/16 19:18 Dose: 1,000 mls/hr Lactated Ringer's (Lactated Ringer's) 1,000 mls @ 1,000 mls/hr IV .Q1H [facility] Last Admin: 10/03/16 20:53 Dose: 1,000 mls/hr Sodium Chloride (Sodium Chloride 0.9%) 1,000 mls @ 150 mls/hr IV .Q6H40M [facility] Stop: 10/06/16 21:14 Last Admin: 10/05/16 08:33 Dose: 150 mls/hr Lactated Ringer's (Lactated Ringer's) 1,000 mls @ 200 mls/hr IV .Q5H [facility] Meropenem 1 gm/ Sodium (Chloride) 100 mls @ 100 mls/hr IVPB Q8 [facility] Last Admin: 10/05/16 08:31 Dose: 100 mls/hr Metronidazole (Flagyl 500mg/100ml Ns) 100 mls @ 100 mls/hr IVPB Q8 [facility] Last Admin: 10/05/16 08:30 Dose: 100 mls/hr Insulin Human Regular (Humulin R) 0 units SC ACHS [facility] PRN Reason: Protocol Last Admin: 10/05/16 06:33 Dose: Not Given Ondansetron HCl (Zofran Inj) 4 mg IVP Q6 PRN PRN Reason: Nausea/Vomiting - Labs Labs: 10/05/16 04:55 10/05/16 04:55 PT 14.9 Seconds (9.8-13.1) H 10/05/16 04:55 INR 1.4 (0.9-1.2) H 10/05/16 04:55 APTT 29.2 Seconds (25.6-37.1) 10/03/16 17:20 - Constitutional Appears: Well, Non-toxic, No Acute Distress - Head Exam Head Exam: ATRAUMATIC, NORMAL INSPECTION, NORMOCEPHALIC - Eye Exam Eye Exam: EOMI, Normal appearance, PERRL Pupil Exam: PERRL - ENT Exam ENT Exam: Mucous Membranes Moist, Normal Exam - Neck Exam Neck Exam: Full ROM, Normal Inspection - Respiratory Exam Respiratory Exam: Clear to Ausculation Bilateral, NORMAL BREATHING PATTERN - Cardiovascular Exam Cardiovascular Exam: RRR, +S1, +S2 - GI/Abdominal Exam GI & Abdominal Exam: Soft, Tenderness, Normal Bowel Sounds. absent: Distended, Guarding, Organomegaly Additional comments: mild TTP to Deep palpation of RUQ - Rectal Exam Rectal Exam: Deferred - Extremities Exam Extremities Exam: Full ROM, Normal Inspection - Back Exam Back Exam: NORMAL INSPECTION - Neurological Exam Neurological Exam: Alert, Awake, Oriented x3 - Psychiatric Exam Psychiatric exam: Normal Affect, Normal Mood - Skin Skin Exam: Dry, Intact, Normal Color, Warm Assessment and Plan - Assessment and Plan (Free Text) Assessment: This is a 86yM pw acute onset of abdominal pain associated with fevers and chills. 1. Acute Cholecysitis 2. Acute Pancreatitis-likely gallstone 3. Transaminitis Plan: -MRCP negative for Choledocholithiasis-so no plan for EUS or ERCP -Continue IVF with LR , BUN and Hct improved today -Continue IV abx per primary team -LFTS are trending down likely from gallstone that passed -Recommend Surgery for cholecystectomy and possible HIDA scan -Pancreatitis likely from gallstones since no hx of alcohol abuse, lipid panel wnl -If no plan for surgery can start on Clear Liquid diet and advance as tolerated Will sign off. Please call with any questions or concerns. <Gail Ramirez MD - Last Filed: 10/05/16 10:57> Objective - Vital Signs/Intake and Output Vital Signs (last 24 hours): Temp Pulse Resp BP Pulse Ox 98.5 F 60 19 160/65 H 97 10/05/16 08:00 10/05/16 08:00 10/05/16 08:00 10/05/16 08:00 10/05/16 08:00 Intake and Output: 10/05/16 10/05/16 06:59 18:59 Intake Total 1500 Output Total 1500 Balance 0 - Medications Medications: Current Medications Acetaminophen (Tylenol 650 Mg Supp) [address] Q6 PRN PRN Reason: Fever >100.4 F Last Admin: 10/04/16 03:20 Dose: 650 mg Dextrose (Dextrose 50% Inj) 0 ml IV STAT PRN; Protocol PRN Reason: Hyglycemia Protocol Dextrose (Glutose 15) 0 gm PO ONCE PRN; Protocol PRN Reason: Hypoglycemia Protocol Enoxaparin Sodium (Lovenox) 40 mg SC DAILY [facility] PRN Reason: Protocol Last Admin: 10/04/16 08:20 Dose: 40 mg Famotidine (Pepcid) 20 mg IVP DAILY [facility] Last Admin: 10/04/16 08:20 Dose: 20 mg Glucagon (Glucagen Diagnostic Kit) 0 mg IM STAT PRN; Protocol PRN Reason: Hypoglycemia Protocol Hydromorphone HCl (Dilaudid) 0.5 mg IVP RQ4PRN PRN PRN Reason: Pain, severe (8-10) Last Admin: 10/04/16 21:35 Dose: 0.5 mg Lactated Ringer's (Lactated Ringer's) 1,000 mls @ 1,000 mls/hr IV .Q1H [facility] Last Admin: 10/03/16 19:18 Dose: 1,000 mls/hr Lactated Ringer's (Lactated Ringer's) 1,000 mls @ 1,000 mls/hr IV .Q1H [facility] Last Admin: 10/03/16 20:53 Dose: 1,000 mls/hr Sodium Chloride (Sodium Chloride 0.9%) 1,000 mls @ 150 mls/hr IV .Q6H40M [facility] Stop: 10/06/16 21:14 Last Admin: 10/05/16 08:33 Dose: 150 mls/hr Lactated Ringer's (Lactated Ringer's) 1,000 mls @ 200 mls/hr IV .Q5H [facility] Meropenem 1 gm/ Sodium (Chloride) 100 mls @ 100 mls/hr IVPB Q8 [facility] Last Admin: 10/05/16 08:31 Dose: 100 mls/hr Metronidazole (Flagyl 500mg/100ml Ns) 100 mls @ 100 mls/hr IVPB Q8 [facility] Last Admin: 10/05/16 08:30 Dose: 100 mls/hr Insulin Human Regular (Humulin R) 0 units SC ACHS [facility] PRN Reason: Protocol Last Admin: 10/05/16 06:33 Dose: Not Given Ondansetron HCl (Zofran Inj) 4 mg IVP Q6 PRN PRN Reason: Nausea/Vomiting - Labs Labs: 10/05/16 04:55 10/05/16 04:55 PT 14.9 Seconds (9.8-13.1) H 10/05/16 04:55 INR 1.4 (0.9-1.2) H 10/05/16 04:55 APTT 29.2 Seconds (25.6-37.1) 10/03/16 17:20 Attending/Attestation - Attestation I have personally seen and examined this patient.: Yes I have fully participated in the care of the patient.: Yes I have reviewed all pertinent clinical information, including history, physical exam and plan: Yes Notes (Text): 10/05/16 10:56 Patient seen and examined at bedside this am. This is a 86 year old M presented with acute onset of abdominal pain associated with fevers and chills in setting of acute cholecystitis and acute pancreatitis due to gallstones. Abdominal pain improved. Able to tolerate fluid diet. Continue aggressive IVF with LR at 150cc/ hr, BUN and Hct improved today. MRCP negative for choledocholithiasis. No indication for ERCP. Cholecystectomy planned for Sunday. Supportive care. Daily LFT trend. Diet as tolerated. Will sign off. Discussed with ICU and family
--- NOTE | 2016-10-05 10:56 | CP.PCM.CON ---
History of Present Illness - History of Present Illness History of Present Illness: 86 y/o h/m admitted with abdominal pain Dx as cholecystitis /pancreatitis Surgery is being contemplated for possible cholecystectomy Pre Op clearance is requested PMH: HTN DM ? 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 - HEENT Hx HEENT Problems: No - RENAL Hx Chronic Kidney Disease: No - ENDOCRINE/METABOLIC Hx Endocrine Disorders: Yes Hx Diabetes Mellitus Type 2: Yes - HEMATOLOGICAL/ONCOLOGICAL Hx Blood Disorders: No - INTEGUMENTARY Hx Dermatological Problems: No - MUSCULOSKELETAL/RHEUMATOLOGICAL Hx Musculoskeletal Disorders: No Hx Falls: No - GASTROINTESTINAL Hx Gastrointestinal Disorders: No - GENITOURINARY/GYNECOLOGICAL Hx Genitourinary Disorders: No - PSYCHIATRIC Hx Psychophysiologic Disorder: No Hx Substance Use: No - SURGICAL HISTORY Hx Surgeries: Yes Hx Herniorrhaphy: Yes - ANESTHESIA Hx Anesthesia: No Hx Anesthesia Reactions: No Hx Malignant Hyperthermia: No Has any member of the family had a problem w/ anesthesia?: No Meds Allergies/Adverse Reactions: Allergies Allergy/AdvReac Type Severity Reaction Status Date / Time Penicillins Allergy Mild RASH Verified 04/22/15 13:07 - Medications Medications: Current Medications Acetaminophen (Tylenol 650 Mg Supp) 650 mg [place] Q6 PRN PRN Reason: Fever >100.4 F Last Admin: 10/04/16 03:20 Dose: 650 mg Dextrose (Dextrose 50% Inj) 0 ml IV STAT PRN; Protocol PRN Reason: Hyglycemia Protocol Dextrose (Glutose 15) 0 gm PO ONCE PRN; Protocol PRN Reason: Hypoglycemia Protocol Enoxaparin Sodium (Lovenox) 40 mg SC DAILY [facility] PRN Reason: Protocol Last Admin: 10/04/16 08:20 Dose: 40 mg Famotidine (Pepcid) 20 mg IVP DAILY [facility] Last Admin: 10/04/16 08:20 Dose: 20 mg Glucagon (Glucagen Diagnostic Kit) 0 mg IM STAT PRN; Protocol PRN Reason: Hypoglycemia Protocol Hydromorphone HCl (Dilaudid) 0.5 mg IVP RQ4PRN PRN PRN Reason: Pain, severe (8-10) Last Admin: 10/04/16 21:35 Dose: 0.5 mg Lactated Ringer's (Lactated Ringer's) 1,000 mls @ 1,000 mls/hr IV .Q1H [facility] Last Admin: 10/03/16 19:18 Dose: 1,000 mls/hr Lactated Ringer's (Lactated Ringer's) 1,000 mls @ 1,000 mls/hr IV .Q1H [facility] Last Admin: 10/03/16 20:53 Dose: 1,000 mls/hr Sodium Chloride (Sodium Chloride 0.9%) 1,000 mls @ 150 mls/hr IV .Q6H40M [facility] Stop: 10/06/16 21:14 Last Admin: 10/05/16 08:33 Dose: 150 mls/hr Lactated Ringer's (Lactated Ringer's) 1,000 mls @ 200 mls/hr IV .Q5H [facility] Meropenem 1 gm/ Sodium (Chloride) 100 mls @ 100 mls/hr IVPB Q8 [facility] Last Admin: 10/05/16 08:31 Dose: 100 mls/hr Metronidazole (Flagyl 500mg/100ml Ns) 100 mls @ 100 mls/hr IVPB Q8 [facility] Last Admin: 10/05/16 08:30 Dose: 100 mls/hr Insulin Human Regular (Humulin R) 0 units SC ACHS [facility] PRN Reason: Protocol Last Admin: 10/05/16 06:33 Dose: Not Given Ondansetron HCl (Zofran Inj) 4 mg IVP Q6 PRN PRN Reason: Nausea/Vomiting Physical Exam - Head Exam Head Exam: NORMAL INSPECTION - Eye Exam Eye Exam: Normal appearance Pupil Exam: NORMAL ACCOMODATION - ENT Exam ENT Exam: Normal Exam - Neck Exam Neck exam: Positive for: Normal Inspection - Respiratory Exam Respiratory Exam: NORMAL BREATHING PATTERN - Cardiovascular Exam Cardiovascular Exam: REGULAR RHYTHM Results - Vital Signs Recent Vital Signs: Last Vital Signs Temp 98.5 F 10/05/16 08:00 Pulse 60 10/05/16 08:00 Resp 19 10/05/16 08:00 BP 160/65 H 10/05/16 08:00 Pulse Ox 97 10/05/16 08:00 - Labs Result Diagrams: 10/05/16 04:55 10/05/16 04:55 Labs: Laboratory Results - last 24 hr 10/04/16 10/04/16 10/04/16 04:25 04:30 11:04 WBC RBC Hgb Hct MCV MCH MCHC RDW Plt Count MPV Neut % (Auto) Lymph % (Auto) [place] % (Auto) Eos % (Auto) Baso % (Auto) Neut # Lymph # [place] # Eos # Baso # ESR PT INR Sodium Potassium Chloride Carbon Dioxide Anion Gap BUN Creatinine Est GFR ( Amer) Est GFR (Non-Af Amer) POC Glucose (mg/dL) 107 Random Glucose Hemoglobin A1c 6.2 Calcium Phosphorus Magnesium Total Bilirubin Direct Bilirubin AST ALT Alkaline Phosphatase Lactate Dehydrogenase Total Protein Albumin Globulin Albumin/Globulin Ratio Triglycerides 53 Cholesterol 126 LDL Cholesterol Direct 86 HDL Cholesterol 27 L Lipase 10/04/16 10/04/16 10/04/16 15:27 15:57 21:23 WBC RBC Hgb Hct MCV MCH MCHC RDW Plt Count MPV Neut % (Auto) Lymph % (Auto) [place] % (Auto) Eos % (Auto) Baso % (Auto) Neut # Lymph # [place] # Eos # Baso # ESR 19 PT INR Sodium Potassium Chloride Carbon Dioxide Anion Gap BUN Creatinine Est GFR ( Amer) Est GFR (Non-Af Amer) POC Glucose (mg/dL) 93 87 Random Glucose Hemoglobin A1c Calcium Phosphorus Magnesium Total Bilirubin Direct Bilirubin AST ALT Alkaline Phosphatase Lactate Dehydrogenase Total Protein Albumin Globulin Albumin/Globulin Ratio Triglycerides Cholesterol LDL Cholesterol Direct HDL Cholesterol Lipase 10/05/16 10/05/16 10/05/16 04:36 04:55 04:55 WBC 9.0 D RBC 4.42 Hgb 11.8 L Hct 36.6 MCV 82.9 MCH 26.7 L MCHC 32.2 L RDW 14.8 H Plt Count 95 L D MPV 9.7 Neut % (Auto) 86.4 H Lymph % (Auto) 4.9 L [place] % (Auto) 8.3 Eos % (Auto) 0.2 Baso % (Auto) 0.2 Neut # 7.8 H Lymph # 0.4 L [place] # 0.7 Eos # 0.0 Baso # 0.0 ESR PT 14.9 H INR 1.4 H Sodium Potassium Chloride Carbon Dioxide Anion Gap BUN Creatinine Est GFR ( Amer) Est GFR (Non-Af Amer) POC Glucose (mg/dL) 83 Random Glucose Hemoglobin A1c Calcium Phosphorus Magnesium Total Bilirubin Direct Bilirubin AST ALT Alkaline Phosphatase Lactate Dehydrogenase Total Protein Albumin Globulin Albumin/Globulin Ratio Triglycerides Cholesterol LDL Cholesterol Direct HDL Cholesterol Lipase 10/05/16 04:55 WBC RBC Hgb Hct MCV MCH MCHC RDW Plt Count MPV Neut % (Auto) Lymph % (Auto) [place] % (Auto) Eos % (Auto) Baso % (Auto) Neut # Lymph # [place] # Eos # Baso # ESR PT INR Sodium 138 Potassium 3.9 Chloride 109 H Carbon Dioxide 20 L Anion Gap 13 BUN 22 H Creatinine 0.9 Est GFR ( Amer) > 60 Est GFR (Non-Af Amer) > 60 POC Glucose (mg/dL) Random Glucose 87 Hemoglobin A1c Calcium 7.7 L Phosphorus 2.2 L Magnesium 2.3 Total Bilirubin 1.9 H Direct Bilirubin 1.2 H AST 128 H D ALT 236 H D Alkaline Phosphatase 112 Lactate Dehydrogenase 424 Total Protein 5.9 L Albumin 3.2 L Globulin 2.7 Albumin/Globulin Ratio 1.2 Triglycerides Cholesterol LDL Cholesterol Direct HDL Cholesterol Lipase 305 H Assessment & Plan (1) Cholecystitis, acute Assessment and Plan: Cardiac mahan the pt is stable he is cleared for surgery Status: Acute (2) Acute gallstone pancreatitis Status: Acute (3) DM type 2 (diabetes mellitus, type 2) Status: Chronic (4) HTN (hypertension) Status: Chronic
--- NOTE | 2016-10-05 11:11 | CP.PCM.PN ---
Subjective - Date & Time of Evaluation Date of Evaluation: 10/05/16 Time of Evaluation: 12:00 - Subjective Subjective: ID Note- Pt. seen and examined today in ICU , his daughter at his bedside. Pt. awake and alert and in good spirits. He denies any fever or chills. states he feels better today and his abdominal pain is less today. denies any nausea or vomiting. tolerating liquids. Objective - Vital Signs/Intake and Output Vital Signs (last 24 hours): Temp Pulse Resp BP Pulse Ox 98.5 F 60 19 160/65 H 97 10/05/16 08:00 10/05/16 08:00 10/05/16 08:00 10/05/16 08:00 10/05/16 08:00 Intake and Output: 10/05/16 10/05/16 06:59 18:59 Intake Total 1500 Output Total 1500 Balance 0 - Medications Medications: Current Medications Acetaminophen (Tylenol 650 Mg Supp) 650 mg FL Q6 PRN PRN Reason: Fever >100.4 F Last Admin: 10/04/16 03:20 Dose: 650 mg Dextrose (Dextrose 50% Inj) 0 ml IV STAT PRN; Protocol PRN Reason: Hyglycemia Protocol Dextrose (Glutose 15) 0 gm PO ONCE PRN; Protocol PRN Reason: Hypoglycemia Protocol Enoxaparin Sodium (Lovenox) 40 mg SC DAILY [facility] PRN Reason: Protocol Last Admin: 10/04/16 08:20 Dose: 40 mg Famotidine (Pepcid) 20 mg IVP DAILY [facility] Last Admin: 10/04/16 08:20 Dose: 20 mg Glucagon (Glucagen Diagnostic Kit) 0 mg IM STAT PRN; Protocol PRN Reason: Hypoglycemia Protocol Hydromorphone HCl (Dilaudid) 0.5 mg IVP RQ4PRN PRN PRN Reason: Pain, severe (8-10) Last Admin: 10/04/16 21:35 Dose: 0.5 mg Lactated Ringer's (Lactated Ringer's) 1,000 mls @ 1,000 mls/hr IV .Q1H [facility] Last Admin: 10/03/16 19:18 Dose: 1,000 mls/hr Lactated Ringer's (Lactated Ringer's) 1,000 mls @ 1,000 mls/hr IV .Q1H [facility] Last Admin: 10/03/16 20:53 Dose: 1,000 mls/hr Sodium Chloride (Sodium Chloride 0.9%) 1,000 mls @ 150 mls/hr IV .Q6H40M [facility] Stop: 10/06/16 21:14 Last Admin: 10/05/16 08:33 Dose: 150 mls/hr Lactated Ringer's (Lactated Ringer's) 1,000 mls @ 200 mls/hr IV .Q5H [facility] Meropenem 1 gm/ Sodium (Chloride) 100 mls @ 100 mls/hr IVPB Q8 [facility] Last Admin: 10/05/16 08:31 Dose: 100 mls/hr Metronidazole (Flagyl 500mg/100ml Ns) 100 mls @ 100 mls/hr IVPB Q8 [facility] Last Admin: 10/05/16 08:30 Dose: 100 mls/hr Insulin Human Regular (Humulin R) 0 units SC ACHS [facility] PRN Reason: Protocol Last Admin: 10/05/16 06:33 Dose: Not Given Ondansetron HCl (Zofran Inj) 4 mg IVP Q6 PRN PRN Reason: Nausea/Vomiting - Labs Labs: - Additional Findings Additional findings: Appears: No Acute Distress - Head Exam Head Exam: ATRAUMATIC - Eye Exam Eye Exam: EOMI, PERRL - ENT Exam ENT Exam: Normal Oropharynx - Neck Exam Neck exam: Positive for: Full Rom - Respiratory Exam Respiratory Exam: Clear to Auscultation Bilateral, NORMAL BREATHING PATTERN - Cardiovascular Exam Cardiovascular Exam: RRR, +S1, +S2 - GI/Abdominal Exam GI & Abdominal Exam: Normal Bowel Sounds, Soft Additional comments: No distention + tenderness with palpation of the midepigastric region only, improved since yesterday no guarding No rebound No CVA tenderness B/l - Extremities Exam Additional comments: left middle dip phalanx region with small ulcer with eschar formation, no malodor, no active discharge no ulcers in the feet b/l no edema b/l LE - Neurological Exam Neurological exam: Alert, Oriented x 3 Laboratory Results - last 72 hr 10/03/16 10/03/16 10/03/16 17:20 17:20 17:20 WBC 17.4 H D RBC 5.02 Hgb 13.5 Hct 41.7 MCV 83.0 D MCH 26.9 L MCHC 32.4 L RDW 14.6 H Plt Count 152 MPV 9.5 Neut % (Auto) 95.7 H Lymph % (Auto) 2.4 L Mcduffie % (Auto) 1.7 Eos % (Auto) 0.0 Baso % (Auto) 0.2 Neut # 16.7 H Lymph # 0.4 L Mcduffie # 0.3 Eos # 0.0 Baso # 0.0 Neutrophils % (Manual) 86 H Band Neutrophils % 4 H Lymphocytes % (Manual) 5 L Reactive Lymphs % 1 H Monocytes % (Manual) 4 Platelet Estimate Normal Large Platelets Present Anisocytosis (manual) Slight ESR PT 11.3 INR 1.1 APTT 29.2 pO2 VBG pH VBG pCO2 VBG HCO3 VBG Total CO2 VBG O2 Sat (Calc) VBG Base Excess Glucose Lactate FiO2 Blood Gas Comments Crit Value Called To Crit Value Called By Crit Value Read Back Blood Gas Notified Time Sodium 139 Potassium 4.0 Chloride 102 Carbon Dioxide 23 Anion Gap 17 BUN 34 H Creatinine 1.0 Est GFR ( Amer) > 60 Est GFR (Non-Af Amer) > 60 POC Glucose (mg/dL) Random Glucose 140 H Hemoglobin A1c Calcium 9.5 Phosphorus Magnesium Total Bilirubin 1.3 Direct Bilirubin AST 207 H D ALT 156 H D Alkaline Phosphatase 128 H D Lactate Dehydrogenase Total Protein 7.8 Albumin 4.6 Globulin 3.2 Albumin/Globulin Ratio 1.4 Triglycerides Cholesterol LDL Cholesterol Direct HDL Cholesterol Lipase 53240 H Urine Color Urine Clarity Urine pH Ur Specific Nicholson Urine Protein Urine Glucose (UA) Urine Ketones Urine Blood Urine Nitrate Urine Bilirubin Urine Urobilinogen Ur Leukocyte Esterase Urine RBC (Auto) Urine Microscopic WBC Ur Squamous Epith Cells 10/03/16 10/03/16 10/03/16 17:50 21:45 22:54 WBC RBC Hgb Hct MCV MCH MCHC RDW Plt Count MPV Neut % (Auto) Lymph % (Auto) Mcduffie % (Auto) Eos % (Auto) Baso % (Auto) Neut # Lymph # Mcduffie # Eos # Baso # Neutrophils % (Manual) Band Neutrophils % Lymphocytes % (Manual) Reactive Lymphs % Monocytes % (Manual) Platelet Estimate Large Platelets Anisocytosis (manual) ESR PT INR APTT pO2 20 L 24 L VBG pH 7.34 7.43 VBG pCO2 45 36 L VBG HCO3 21.7 23.4 VBG Total CO2 25.7 25.0 VBG O2 Sat (Calc) 31.1 L 52.6 VBG Base Excess -1.7 L -0.1 L Glucose 132 H 118 H Lactate 2.6 H 3.8 H FiO2 21.0 21.0 Blood Gas Comments Vbg Vbg Crit Value Called To Dr maria dolores cortes Crit Value Called By 162 162 Crit Value Read Back Y Y Blood Gas Notified Time 1750 2149 Sodium 185.0 H* 183.0 H* Potassium Chloride 121.0 H 121.0 H Carbon Dioxide Anion Gap BUN Creatinine Est GFR ( Amer) Est GFR (Non-Af Amer) POC Glucose (mg/dL) 123 H Random Glucose Hemoglobin A1c Calcium Phosphorus Magnesium Total Bilirubin Direct Bilirubin AST ALT Alkaline Phosphatase Lactate Dehydrogenase Total Protein Albumin Globulin Albumin/Globulin Ratio Triglycerides Cholesterol LDL Cholesterol Direct HDL Cholesterol Lipase Urine Color Urine Clarity Urine pH Ur Specific Nicholson Urine Protein Urine Glucose (UA) Urine Ketones Urine Blood Urine Nitrate Urine Bilirubin Urine Urobilinogen Ur Leukocyte Esterase Urine RBC (Auto) Urine Microscopic WBC Ur Squamous Epith Cells 10/04/16 10/04/16 10/04/16 04:25 04:25 04:25 WBC 22.5 H RBC 4.19 L Hgb 11.1 L D Hct 34.3 L MCV 81.8 MCH 26.4 L MCHC 32.3 L RDW 14.1 Plt Count 122 L D MPV 9.9 Neut % (Auto) 92.7 H Lymph % (Auto) 1.5 L Mcduffie % (Auto) 5.7 Eos % (Auto) 0.0 Baso % (Auto) 0.1 Neut # 20.9 H Lymph # 0.3 L Mcduffie # 1.3 H Eos # 0.0 Baso # 0.0 Neutrophils % (Manual) 94 H Band Neutrophils % Lymphocytes % (Manual) 1 L Reactive Lymphs % Monocytes % (Manual) 5 Platelet Estimate Slightly decreased L Large Platelets Anisocytosis (manual) Slight ESR PT INR APTT pO2 VBG pH VBG pCO2 VBG HCO3 VBG Total CO2 VBG O2 Sat (Calc) VBG Base Excess Glucose Lactate FiO2 Blood Gas Comments Crit Value Called To Crit Value Called By Crit Value Read Back Blood Gas Notified Time Sodium 137 Potassium 3.8 Chloride 107 Carbon Dioxide 23 Anion Gap 11 BUN 25 H Creatinine 1.0 Est GFR ( Amer) > 60 Est GFR (Non-Af Amer) > 60 POC Glucose (mg/dL) Random Glucose 111 H Hemoglobin A1c 6.2 Calcium 8.3 L Phosphorus Magnesium 1.5 L Total Bilirubin 3.3 H Direct Bilirubin AST 296 H D ALT 349 H D Alkaline Phosphatase 108 Lactate Dehydrogenase Total Protein 5.9 L Albumin 3.2 L D Globulin 2.7 Albumin/Globulin Ratio 1.2 Triglycerides 53 D Cholesterol 127 LDL Cholesterol Direct 80 HDL Cholesterol 29 L Lipase 3990 H Urine Color Urine Clarity Urine pH Ur Specific Nicholson Urine Protein Urine Glucose (UA) Urine Ketones Urine Blood Urine Nitrate Urine Bilirubin Urine Urobilinogen Ur Leukocyte Esterase Urine RBC (Auto) Urine Microscopic WBC Ur Squamous Epith Cells 10/04/16 10/04/16 10/04/16 04:30 05:27 08:20 WBC RBC Hgb Hct MCV MCH MCHC RDW Plt Count MPV Neut % (Auto) Lymph % (Auto) Mcduffie % (Auto) Eos % (Auto) Baso % (Auto) Neut # Lymph # Mcduffie # Eos # Baso # Neutrophils % (Manual) Band Neutrophils % Lymphocytes % (Manual) Reactive Lymphs % Monocytes % (Manual) Platelet Estimate Large Platelets Anisocytosis (manual) ESR PT INR APTT pO2 VBG pH VBG pCO2 VBG HCO3 VBG Total CO2 VBG O2 Sat (Calc) VBG Base Excess Glucose Lactate FiO2 Blood Gas Comments Crit Value Called To Crit Value Called By Crit Value Read Back Blood Gas Notified Time Sodium Potassium Chloride Carbon Dioxide Anion Gap BUN Creatinine Est GFR ( Amer) Est GFR (Non-Af Amer) POC Glucose (mg/dL) 113 H Random Glucose Hemoglobin A1c Calcium Phosphorus Magnesium Total Bilirubin Direct Bilirubin AST ALT Alkaline Phosphatase Lactate Dehydrogenase Total Protein Albumin Globulin Albumin/Globulin Ratio Triglycerides 53 Cholesterol 126 LDL Cholesterol Direct 86 HDL Cholesterol 27 L Lipase Urine Color Yellow Urine Clarity Clear Urine pH 6.0 Ur Specific Nicholson 1.013 Urine Protein Negative Urine Glucose (UA) Neg Urine Ketones Negative Urine Blood Negative Urine Nitrate Negative Urine Bilirubin Negative Urine Urobilinogen 0.2-1.0 Ur Leukocyte Esterase Neg Urine RBC (Auto) 3 Urine Microscopic WBC < 1 Ur Squamous Epith Cells < 1 10/04/16 10/04/16 10/04/16 11:04 15:27 15:57 WBC RBC Hgb Hct MCV MCH MCHC RDW Plt Count MPV Neut % (Auto) Lymph % (Auto) Mcduffie % (Auto) Eos % (Auto) Baso % (Auto) Neut # Lymph # Mcduffie # Eos # Baso # Neutrophils % (Manual) Band Neutrophils % Lymphocytes % (Manual) Reactive Lymphs % Monocytes % (Manual) Platelet Estimate Large Platelets Anisocytosis (manual) ESR 19 PT INR APTT pO2 VBG pH VBG pCO2 VBG HCO3 VBG Total CO2 VBG O2 Sat (Calc) VBG Base Excess Glucose Lactate FiO2 Blood Gas Comments Crit Value Called To Crit Value Called By Crit Value Read Back Blood Gas Notified Time Sodium Potassium Chloride Carbon Dioxide Anion Gap BUN Creatinine Est GFR ( Amer) Est GFR (Non-Af Amer) POC Glucose (mg/dL) 107 93 Random Glucose Hemoglobin A1c Calcium Phosphorus Magnesium Total Bilirubin Direct Bilirubin AST ALT Alkaline Phosphatase Lactate Dehydrogenase Total Protein Albumin Globulin Albumin/Globulin Ratio Triglycerides Cholesterol LDL Cholesterol Direct HDL Cholesterol Lipase Urine Color Urine Clarity Urine pH Ur Specific Nicholson Urine Protein Urine Glucose (UA) Urine Ketones Urine Blood Urine Nitrate Urine Bilirubin Urine Urobilinogen Ur Leukocyte Esterase Urine RBC (Auto) Urine Microscopic WBC Ur Squamous Epith Cells 10/04/16 10/05/16 10/05/16 21:23 04:36 04:55 WBC 9.0 D RBC 4.42 Hgb 11.8 L Hct 36.6 MCV 82.9 MCH 26.7 L MCHC 32.2 L RDW 14.8 H Plt Count 95 L D MPV 9.7 Neut % (Auto) 86.4 H Lymph % (Auto) 4.9 L Mcduffie % (Auto) 8.3 Eos % (Auto) 0.2 Baso % (Auto) 0.2 Neut # 7.8 H Lymph # 0.4 L Mcduffie # 0.7 Eos # 0.0 Baso # 0.0 Neutrophils % (Manual) Band Neutrophils % Lymphocytes % (Manual) Reactive Lymphs % Monocytes % (Manual) Platelet Estimate Large Platelets Anisocytosis (manual) ESR PT INR APTT pO2 VBG pH VBG pCO2 VBG HCO3 VBG Total CO2 VBG O2 Sat (Calc) VBG Base Excess Glucose Lactate FiO2 Blood Gas Comments Crit Value Called To Crit Value Called By Crit Value Read Back Blood Gas Notified Time Sodium Potassium Chloride Carbon Dioxide Anion Gap BUN Creatinine Est GFR ( Amer) Est GFR (Non-Af Amer) POC Glucose (mg/dL) 87 83 Random Glucose Hemoglobin A1c Calcium Phosphorus Magnesium Total Bilirubin Direct Bilirubin AST ALT Alkaline Phosphatase Lactate Dehydrogenase Total Protein Albumin Globulin Albumin/Globulin Ratio Triglycerides Cholesterol LDL Cholesterol Direct HDL Cholesterol Lipase Urine Color Urine Clarity Urine pH Ur Specific Nicholson Urine Protein Urine Glucose (UA) Urine Ketones Urine Blood Urine Nitrate Urine Bilirubin Urine Urobilinogen Ur Leukocyte Esterase Urine RBC (Auto) Urine Microscopic WBC Ur Squamous Epith Cells 10/05/16 10/05/16 10/05/16 04:55 04:55 11:08 WBC RBC Hgb Hct MCV MCH MCHC RDW Plt Count MPV Neut % (Auto) Lymph % (Auto) Mcduffie % (Auto) Eos % (Auto) Baso % (Auto) Neut # Lymph # Mcduffie # Eos # Baso # Neutrophils % (Manual) Band Neutrophils % Lymphocytes % (Manual) Reactive Lymphs % Monocytes % (Manual) Platelet Estimate Large Platelets Anisocytosis (manual) ESR PT 14.9 H INR 1.4 H APTT pO2 VBG pH VBG pCO2 VBG HCO3 VBG Total CO2 VBG O2 Sat (Calc) VBG Base Excess Glucose Lactate FiO2 Blood Gas Comments Crit Value Called To Crit Value Called By Crit Value Read Back Blood Gas Notified Time Sodium 138 Potassium 3.9 Chloride 109 H Carbon Dioxide 20 L Anion Gap 13 BUN 22 H Creatinine 0.9 Est GFR ( Amer) > 60 Est GFR (Non-Af Amer) > 60 POC Glucose (mg/dL) 85 Random Glucose 87 Hemoglobin A1c Calcium 7.7 L Phosphorus 2.2 L Magnesium 2.3 Total Bilirubin 1.9 H Direct Bilirubin 1.2 H AST 128 H D ALT 236 H D Alkaline Phosphatase 112 Lactate Dehydrogenase 424 Total Protein 5.9 L Albumin 3.2 L Globulin 2.7 Albumin/Globulin Ratio 1.2 Triglycerides Cholesterol LDL Cholesterol Direct HDL Cholesterol Lipase 305 H Urine Color Urine Clarity Urine pH Ur Specific Nicholson Urine Protein Urine Glucose (UA) Urine Ketones Urine Blood Urine Nitrate Urine Bilirubin Urine Urobilinogen Ur Leukocyte Esterase Urine RBC (Auto) Urine Microscopic WBC Ur Squamous Epith Cells Microbiology 10/03/16 17:20 Urine Urine Culture - Final No Growth (<1,000 CFU/ML) 10/03/16 16:45 Blood Blood Culture - Preliminary NO GROWTH AFTER 24 HOURS 10/03/16 16:30 Blood Blood Culture - Preliminary NO GROWTH AFTER 24 HOURS Assessment and Plan (1) Cholecystitis, acute Status: Acute (2) Acute pancreatitis Status: Acute (3) Leukocytosis Status: Acute (4) Fever Status: Acute - Assessment and Plan (Free Text) Assessment: A/P- 86 year old male with DM II, HTN, hyperlipidemia admitted with abd pain, fever and leukocytosis foudn to have cholecystitis and gallstome pancreatitis. currently seems to be better clinically. afebrile today. leukocytois shas resolved today. abd CT and US and MRCP reports noted MRCP negative for Choledocholithiasis cxr- negative as per report. blood cx- negative x 2 urine cx- negative left middle DIP necrotic ulcer. LFTs are trending down, lipase trending down. plan- advise to continue with meropenm day #2. advise to continue with IV metronidazole. day #2 No GI intervention as per Gi note. as per surgical note cholecystectomy once pancreatitis is resolved. advise to also check ESR and MRI of the left DIP digit to rule out OM. all above d/w patient and his daughter who is at bedside at length and all their questions were answered and they agree with above plan of care and have full understanding of all above. ICU time 45 minutes.
[2016-10-05] MEDS ORDERED: Potassium Phosphate 30 MMOLE in Dextrose 5% In Water 250 ML IV ONE (11:25)
[2016-10-05] MEDS: Lactated Ringer's 1,000 ML IV SCH ×4 (11:40→22:37)
--- NOTE | 2016-10-05 11:43 | CP.PCM.PN ---
Subjective - Date & Time of Evaluation Date of Evaluation: 10/05/16 Time of Evaluation: 11:00 - Subjective Subjective: No fever abd pain better no N/V no CP no SOB No plan for ERCP Plan for Lap Rolanda Sunday Daughter at bedside - discussed test results Cardiac pre op eval done by Dr Hernandez Objective - Vital Signs/Intake and Output Vital Signs (last 24 hours): Temp Pulse Resp BP Pulse Ox 98.5 F 59 L 15 145/83 99 10/05/16 08:00 10/05/16 10:00 10/05/16 10:00 10/05/16 10:00 10/05/16 10:00 Intake and Output: 10/05/16 10/05/16 06:59 18:59 Intake Total 1500 200 Output Total 1500 425 Balance 0 -225 - Medications Medications: Current Medications Acetaminophen (Tylenol 650 Mg Supp) 650 mg PA Q6 PRN PRN Reason: Fever >100.4 F Last Admin: 10/04/16 03:20 Dose: 650 mg Dextrose (Dextrose 50% Inj) 0 ml IV STAT PRN; Protocol PRN Reason: Hyglycemia Protocol Dextrose (Glutose 15) 0 gm PO ONCE PRN; Protocol PRN Reason: Hypoglycemia Protocol Enoxaparin Sodium (Lovenox) 40 mg SC DAILY [facility] PRN Reason: Protocol Last Admin: 10/04/16 08:20 Dose: 40 mg Famotidine (Pepcid) 20 mg IVP DAILY [facility] Last Admin: 10/04/16 08:20 Dose: 20 mg Glucagon (Glucagen Diagnostic Kit) 0 mg IM STAT PRN; Protocol PRN Reason: Hypoglycemia Protocol Hydromorphone HCl (Dilaudid) 0.5 mg IVP RQ4PRN PRN PRN Reason: Pain, severe (8-10) Last Admin: 10/04/16 21:35 Dose: 0.5 mg Lactated Ringer's (Lactated Ringer's) 1,000 mls @ 1,000 mls/hr IV .Q1H [facility] Last Admin: 10/03/16 19:18 Dose: 1,000 mls/hr Lactated Ringer's (Lactated Ringer's) 1,000 mls @ 1,000 mls/hr IV .Q1H [facility] Last Admin: 10/03/16 20:53 Dose: 1,000 mls/hr Lactated Ringer's (Lactated Ringer's) 1,000 mls @ 200 mls/hr IV .Q5H [facility] Meropenem 1 gm/ Sodium (Chloride) 100 mls @ 100 mls/hr IVPB Q8 [facility] Last Admin: 10/05/16 08:31 Dose: 100 mls/hr Metronidazole (Flagyl 500mg/100ml Ns) 100 mls @ 100 mls/hr IVPB Q8 [facility] Last Admin: 10/05/16 08:30 Dose: 100 mls/hr Lactated Ringer's (Lactated Ringer's) 1,000 mls @ 125 mls/hr IV .Q8H [facility] Potassium Phosphate 30 mmole/ (Dextrose) 260 mls @ 65 mls/hr IV .Q4H ONE Stop: 10/05/16 15:24 Insulin Human Regular (Humulin R) 0 units SC ACHS [facility] PRN Reason: Protocol Last Admin: 10/05/16 06:33 Dose: Not Given Ondansetron HCl (Zofran Inj) 4 mg IVP Q6 PRN PRN Reason: Nausea/Vomiting Valsartan (Diovan) 160 mg PO DAILY [facility] - Labs Labs: 10/05/16 04:55 10/05/16 04:55 PT 14.9 Seconds (9.8-13.1) H 10/05/16 04:55 INR 1.4 (0.9-1.2) H 10/05/16 04:55 APTT 29.2 Seconds (25.6-37.1) 10/03/16 17:20 - Constitutional Appears: No Acute Distress - Head Exam Head Exam: NORMAL INSPECTION, NORMOCEPHALIC - Eye Exam Eye Exam: EOMI, Normal appearance Pupil Exam: NORMAL ACCOMODATION - ENT Exam ENT Exam: Mucous Membranes Dry, Normal External Ear Exam - Neck Exam Neck Exam: Full ROM. absent: Meningismus - Respiratory Exam Respiratory Exam: NORMAL BREATHING PATTERN. absent: Rales, Wheezes, Respiratory Distress - Cardiovascular Exam Cardiovascular Exam: REGULAR RHYTHM, +S1, +S2 - GI/Abdominal Exam GI & Abdominal Exam: Distended, Soft, Tenderness, Normal Bowel Sounds - Extremities Exam Extremities Exam: Full ROM, Normal Capillary Refill. absent: Calf Tenderness, Pedal Edema Additional comments: left middle finger - distal portion with old, dry eschar - Back Exam Back Exam: Full ROM. absent: CVA tenderness (L), CVA tenderness (R) - Neurological Exam Neurological Exam: Alert, Awake, CN II-XII Intact, Oriented x3 Neuro motor strength exam: Left Upper Extremity: 5, Right Upper Extremity: 5, Left Lower Extremity: 5, Right Lower Extremity: 5 - Psychiatric Exam Psychiatric exam: Normal Affect, Normal Mood - Skin Skin Exam: Dry, Normal Color, Warm Assessment and Plan (1) Sepsis Status: Acute (2) Acute gallstone pancreatitis Status: Acute (3) Cholecystitis, acute Status: Acute (4) DM type 2 (diabetes mellitus, type 2) Status: Chronic (5) HTN (hypertension) Status: Chronic (6) DVT prophylaxis Status: Acute - Assessment and Plan (Free Text) Assessment: 86 y/o gent with known Hx of HTN, DM, Carotid Stenosis, BPH came in bec of abd pain. Found to have Elevated lipase, abn LFT, elevated WBC ct . CT of the abdomen : Prominence of the pancreatic head with adjacent inflammatory change and mild ductal dilatation, findings suggest pancreatitis , underlying neoplasm cannot be excluded; gallstone; no renal or ureteral stones or hydronephrosis; no CT findings of appendicitis or diverticulitis (1) Sepsis sec to Cholecystitis, Pancreatitis Status: Acute Elevated WBC to 22k, elevated lactate level - now normal started initially on IV cefepime and Flagyl - Cefepime changed to meropenem by ID ID consulted - Dr Manzano Blood c/s: neg so far IVF hydration Monitored in ICU - will transfer to Med Surg (2) Acute gallstone pancreatitis Status: Acute Surgery consulted- Plan for Lap Rolanda on Sunday once pancreatitis resolves GI consult- discussed case with Dr Ramirez- rec MRCP MRCP : no Choledocholithiasis - so NO ERCP nor EUS IVF hydration Pain mgt IV abx Cardio consult for cardiac optimization- ECHO normal EF, No significant Carotid stenosis on US - cleared by Dr Hernandez (3) Cholecystitis, acute Status: Acute Surgery consult as above cont IV Meropenem (4) DM type 2 (diabetes mellitus, type 2) Status: Chronic Hold oral hypoglycemics accucheck (5) HTN (hypertension) Status: Chronic start Diovan ( pt on Olmesartan at home ) 6. Carotid Stenosis , history ECHO- normal EF, wall motion Carotid Sono- no significant stenosis cont statin as outpt 7. Thrombocytopenia prob sec to Infection/Sepsis, unlikely HIT as Platelet dropped bfore Lovenox started monitor Plt (7) DVT prophylaxis Status: Acute Lovenox- close monitoring as Plt 95
--- NOTE | 2016-10-05 13:18 | CP.PCM.PN ---
Subjective - Date & Time of Evaluation Date of Evaluation: 10/05/16 Time of Evaluation: 13:15 - Subjective Subjective: General Surgery - Dr. Watson Pt S&E. [facility]. Pt states he feels a little better today, still having RUQ pain but improving. He is hungry. No F/C, SOB/Cp, N/V. Objective - Vital Signs/Intake and Output Vital Signs (last 24 hours): Temp Pulse Resp BP Pulse Ox 97.3 F L 64 19 158/78 H 98 10/05/16 12:00 10/05/16 12:00 10/05/16 12:00 10/05/16 12:00 10/05/16 12:00 Intake and Output: 10/05/16 10/05/16 06:59 18:59 Intake Total 1500 200 Output Total 1500 425 Balance 0 -225 - Medications Medications: Current Medications Acetaminophen (Tylenol 650 Mg Supp) 650 mg [place] Q6 PRN PRN Reason: Fever >100.4 F Last Admin: 10/04/16 03:20 Dose: 650 mg Dextrose (Dextrose 50% Inj) 0 ml IV STAT PRN; Protocol PRN Reason: Hyglycemia Protocol Dextrose (Glutose 15) 0 gm PO ONCE PRN; Protocol PRN Reason: Hypoglycemia Protocol Enoxaparin Sodium (Lovenox) 40 mg SC DAILY [facility] PRN Reason: Protocol Last Admin: 10/04/16 08:20 Dose: 40 mg Famotidine (Pepcid) 20 mg IVP DAILY [facility] Last Admin: 10/05/16 11:42 Dose: 20 mg Glucagon (Glucagen Diagnostic Kit) 0 mg IM STAT PRN; Protocol PRN Reason: Hypoglycemia Protocol Hydromorphone HCl (Dilaudid) 0.5 mg IVP RQ4PRN PRN PRN Reason: Pain, severe (8-10) Last Admin: 10/04/16 21:35 Dose: 0.5 mg Lactated Ringer's (Lactated Ringer's) 1,000 mls @ 1,000 mls/hr IV .Q1H [facility]UD[facility] Last Admin: 10/03/16 19:18 Dose: 1,000 mls/hr Lactated Ringer's (Lactated Ringer's) 1,000 mls @ 1,000 mls/hr IV .Q1H [facility] Last Admin: 10/03/16 20:53 Dose: 1,000 mls/hr Lactated Ringer's (Lactated Ringer's) 1,000 mls @ 200 mls/hr IV .Q5H [facility] Meropenem 1 gm/ Sodium (Chloride) 100 mls @ 100 mls/hr IVPB Q8 [facility] Last Admin: 10/05/16 08:31 Dose: 100 mls/hr Metronidazole (Flagyl 500mg/100ml Ns) 100 mls @ 100 mls/hr IVPB Q8 [facility] Last Admin: 10/05/16 08:30 Dose: 100 mls/hr Lactated Ringer's (Lactated Ringer's) 1,000 mls @ 125 mls/hr IV .Q8H [facility] Last Admin: 10/05/16 11:40 Dose: 125 mls/hr Potassium Phosphate 30 mmole/ (Dextrose) 260 mls @ 65 mls/hr IV .Q4H ONE Stop: 10/05/16 15:24 Last Admin: 10/05/16 12:05 Dose: 65 mls/hr Insulin Human Regular (Humulin R) 0 units SC ACHS [facility] PRN Reason: Protocol Last Admin: 10/05/16 11:49 Dose: Not Given Ondansetron HCl (Zofran Inj) 4 mg IVP Q6 PRN PRN Reason: Nausea/Vomiting Tramadol HCl (Ultram) 50 mg PO Q6 PRN PRN Reason: Pain, moderate (4-7) Valsartan (Diovan) 160 mg PO DAILY [facility] Last Admin: 10/05/16 12:04 Dose: 160 mg - Labs Labs: 10/05/16 04:55 10/05/16 04:55 PT 14.9 Seconds (9.8-13.1) H 10/05/16 04:55 INR 1.4 (0.9-1.2) H 10/05/16 04:55 APTT 29.2 Seconds (25.6-37.1) 10/03/16 17:20 - Constitutional Appears: No Acute Distress - Head Exam Head Exam: ATRAUMATIC, NORMAL INSPECTION, NORMOCEPHALIC - Eye Exam Eye Exam: Scleral icterus - ENT Exam ENT Exam: Mucous Membranes Moist - Respiratory Exam Respiratory Exam: NORMAL BREATHING PATTERN. absent: Respiratory Distress - Cardiovascular Exam Cardiovascular Exam: REGULAR RHYTHM - GI/Abdominal Exam GI & Abdominal Exam: Distended (mild (baseline)), Guarding (voluntary), Soft, Tenderness (mild TTP RUQ). absent: Firm, Rigid, Rebound - Neurological Exam Neurological Exam: Alert, Oriented x3 - Psychiatric Exam Psychiatric exam: Normal Affect, Normal Mood - Skin Skin Exam: Dry, Intact Assessment and Plan - Assessment and Plan (Free Text) Assessment: 86 yo M w/ gallstone pancreatitis -Clear liquid diet -Continue IVF, Pain control -Tbili and Lipase trending down, continue to follow LFTs -No plans for GI intervention -Will will continue to follow and allow the pancreatitis time to resolve -Medical optimization prior to OR -Plan for cholecystectomy early next week Patient seen and discussed with Dr. Walter Benz PGY3
[2016-10-05] MEDS ORDERED: guaiFENesin DM 200 mg-20 mg/10 ml UD PO PRN (19:36)
[2016-10-06] MEDS: Meropenem 1 GM in Sodium Chloride 0.9% 100 ML IVPB SCH ×3 (00:29→16:37)
[2016-10-06] MEDS: metroNIDAZOLE 500mg/100ml NS 100 ML IVPB SCH ×2 (00:29→08:33)
[2016-10-06 07:26] LABS: ALB/GLOB RATIO 1.1 (1.0-2.1); ALKALINE PHOSPHATASE 120 U/L (38-126); ALT/SGPT 159 U/L (21-72); AST/SGOT 86 U/L (17-59); BILIRUBIN,TOTAL 1.1 mg/dl (0.2-1.3); BLOOD UREA NITROGEN 17 mg/dl (9-20); CALCIUM 8.1 mg/dL (8.4-10.2); CARBON DIOXIDE 22 mmol/L (22-30); CHLORIDE 105 mmol/L (98-107); GFR AFRICAN-AMERICAN > 60; GLUCOSE,RANDOM 93 mg/dL (75-110); LIPASE 66 U/L (23-300); PHOSPHOROUS 1.7 mg/dl (2.5-4.5); POTASSIUM 3.7 MMOL/L (3.6-5.0); SODIUM 133 mmol/l (132-148)
[2016-10-06 07:38] LABS: BASO % 0.3 % (0.0-2.0); EOS % 0.6 % (0.0-4.0); HEMATOCRIT 35.9 % (35.0-51.0); LYMPH # 0.4 K/uL (1.0-4.3); LYMPH % 8.6 % (20.0-40.0); MEAN CORPUSCULAR HEMOGLOBIN 27.1 pg (27.0-31.0); MEAN CORPUSCULAR HGB CONC 33.6 g/dL (33.0-37.0); MEAN PLATELET VOLUME 9.3 fl (7.2-11.7); MONO # 0.9 K/uL (0.0-0.8); MONO % 16.5 % (0.0-10.0); NEUT # 3.8 K/uL (1.8-7.0); NRBC % 0.1 % (0.0-0.0); RED CELL DISTRIBUTION WIDTH 14.4 % (11.5-14.5); WHITE BLOOD COUNT 5.2 K/uL (4.8-10.8)
--- NOTE | 2016-10-06 07:38 | CP.PCM.PN ---
<Brigitte Benz - Last Filed: 10/06/16 07:36> Subjective - Date & Time of Evaluation Date of Evaluation: 10/06/16 Time of Evaluation: 07:36 - Subjective Subjective: General Surgery - Dr. Watson pt S&E. [facility]. Pt transfered to 6 from ICU yesterday. He is doing well, states his pain is improving, still with mild RUQ pain. Pt is tolerating liquid diet. No N/v, F/C, Sob/Cp. Objective - Vital Signs/Intake and Output Vital Signs (last 24 hours): Temp Pulse Resp BP Pulse Ox 98.8 F 71 17 124/53 L 95 10/05/16 22:00 10/05/16 22:00 10/05/16 22:00 10/05/16 22:00 10/05/16 22:00 Intake and Output: 10/06/16 10/06/16 06:59 18:59 Intake Total 1920 Output Total 2100 Balance -180 - Medications Medications: Current Medications Acetaminophen (Tylenol 650 Mg Supp) 650 mg [place] Q6 PRN PRN Reason: Fever >100.4 F Last Admin: 10/04/16 03:20 Dose: 650 mg Amlodipine Besylate (Norvasc) 10 mg PO DAILY [facility] Dextrose (Dextrose 50% Inj) 0 ml IV STAT PRN; Protocol PRN Reason: Hyglycemia Protocol Dextrose (Glutose 15) 0 gm PO ONCE PRN; Protocol PRN Reason: Hypoglycemia Protocol Enoxaparin Sodium (Lovenox) 40 mg SC DAILY SUDHA PRN Reason: Protocol Last Admin: 10/04/16 08:20 Dose: 40 mg Famotidine (Pepcid) 20 mg IVP DAILY [facility] Last Admin: 10/05/16 11:42 Dose: 20 mg Glucagon (Glucagen Diagnostic Kit) 0 mg IM STAT PRN; Protocol PRN Reason: Hypoglycemia Protocol Guaifenesin/Dextromethorphan (Robitussin Dm) 10 ml PO Q4 PRN PRN Reason: Cough Hydromorphone HCl (Dilaudid) 0.5 mg IVP RQ4PRN PRN PRN Reason: Pain, severe (8-10) Last Admin: 10/04/16 21:35 Dose: 0.5 mg Lactated Ringer's (Lactated Ringer's) 1,000 mls @ 1,000 mls/hr IV .Q1H [facility] Last Admin: 10/03/16 19:18 Dose: 1,000 mls/hr Lactated Ringer's (Lactated Ringer's) 1,000 mls @ 1,000 mls/hr IV .Q1H [facility] Last Admin: 10/03/16 20:53 Dose: 1,000 mls/hr Meropenem 1 gm/ Sodium (Chloride) 100 mls @ 100 mls/hr IVPB Q8 [facility] Last Admin: 10/06/16 00:29 Dose: 100 mls/hr Metronidazole (Flagyl 500mg/100ml Ns) 100 mls @ 100 mls/hr IVPB Q8 [facility] Last Admin: 10/06/16 00:29 Dose: 100 mls/hr Lactated Ringer's (Lactated Ringer's) 1,000 mls @ 100 mls/hr IV .Q10H [facility] Last Admin: 10/05/16 22:37 Dose: 100 mls/hr Insulin Human Regular (Humulin R) 0 units SC ACHS [facility] PRN Reason: Protocol Last Admin: 10/05/16 21:50 Dose: Not Given Ondansetron HCl (Zofran Inj) 4 mg IVP Q6 PRN PRN Reason: Nausea/Vomiting Tramadol HCl (Ultram) 50 mg PO Q6 PRN PRN Reason: Pain, moderate (4-7) Last Admin: 10/05/16 13:55 Dose: 50 mg Valsartan (Diovan) 160 mg PO DAILY [facility] Last Admin: 10/05/16 12:04 Dose: 160 mg - Labs Labs: 10/05/16 04:55 10/06/16 06:50 PT 14.9 Seconds (9.8-13.1) H 10/05/16 04:55 INR 1.4 (0.9-1.2) H 10/05/16 04:55 APTT 29.2 Seconds (25.6-37.1) 10/03/16 17:20 - Constitutional Appears: No Acute Distress - Head Exam Head Exam: ATRAUMATIC, NORMAL INSPECTION, NORMOCEPHALIC - Eye Exam Eye Exam: Normal appearance - Respiratory Exam Respiratory Exam: NORMAL BREATHING PATTERN. absent: Respiratory Distress - GI/Abdominal Exam GI & Abdominal Exam: Soft, Tenderness (mild ttp RUQ). absent: Distended, Guarding, Rebound - Neurological Exam Neurological Exam: Alert, Oriented x3 - Psychiatric Exam Psychiatric exam: Normal Affect, Normal Mood - Skin Skin Exam: Dry, Normal Color, Warm Assessment and Plan - Assessment and Plan (Free Text) Assessment: 86 yo M w/ gallstone pancreatitis -Continue liquid diet -Tbili and Lipase trending down, continue to follow LFTs -Medical optimization -Plan for cholecystectomy soon, likely Sunday Patient seen and discussed with Dr. Walter Benz PGY3 <Maynor Watson - Last Filed: 10/06/16 10:51> Subjective - Date & Time of Evaluation Time of Evaluation: 10:15 - Subjective Subjective: Patient was seen and examined at the bedside. Agree with resident's note above. Objective - Vital Signs/Intake and Output Vital Signs (last 24 hours): Temp Pulse Resp BP Pulse Ox 98.7 F 61 20 154/72 H 97 10/06/16 08:23 10/06/16 08:32 10/06/16 08:23 10/06/16 08:32 10/06/16 08:23 Intake and Output: 10/06/16 10/06/16 06:59 18:59 Intake Total 1920 Output Total 2100 Balance -180 - Medications Medications: Current Medications Acetaminophen (Tylenol 650 Mg Supp) 650 mg RI Q6 PRN PRN Reason: Fever >100.4 F Last Admin: 10/04/16 03:20 Dose: 650 mg Amlodipine Besylate (Norvasc) 10 mg PO DAILY [facility] Last Admin: 10/06/16 08:32 Dose: 10 mg Dextrose (Dextrose 50% Inj) 0 ml IV STAT PRN; Protocol PRN Reason: Hyglycemia Protocol Dextrose (Glutose 15) 0 gm PO ONCE PRN; Protocol PRN Reason: Hypoglycemia Protocol Enoxaparin Sodium (Lovenox) 40 mg SC DAILY SUDHA PRN Reason: Protocol Last Admin: 10/06/16 10:10 Dose: 40 mg Famotidine (Pepcid) 20 mg IVP DAILY [facility] Last Admin: 10/06/16 08:34 Dose: 20 mg Glucagon (Glucagen Diagnostic Kit) 0 mg IM STAT PRN; Protocol PRN Reason: Hypoglycemia Protocol Guaifenesin/Dextromethorphan (Robitussin Dm) 10 ml PO Q4 PRN PRN Reason: Cough Hydromorphone HCl (Dilaudid) 0.5 mg IVP RQ4PRN PRN PRN Reason: Pain, severe (8-10) Last Admin: 10/04/16 21:35 Dose: 0.5 mg Lactated Ringer's (Lactated Ringer's) 1,000 mls @ 1,000 mls/hr IV .Q1H [facility] Last Admin: 10/03/16 19:18 Dose: 1,000 mls/hr Lactated Ringer's (Lactated Ringer's) 1,000 mls @ 1,000 mls/hr IV .Q1H [facility] Last Admin: 10/03/16 20:53 Dose: 1,000 mls/hr Meropenem 1 gm/ Sodium (Chloride) 100 mls @ 100 mls/hr IVPB Q8 [facility] Last Admin: 10/06/16 10:07 Dose: 100 mls/hr Metronidazole (Flagyl 500mg/100ml Ns) 100 mls @ 100 mls/hr IVPB Q8 [facility] Last Admin: 10/06/16 08:33 Dose: 100 mls/hr Lactated Ringer's (Lactated Ringer's) 1,000 mls @ 100 mls/hr IV .Q10H [facility] Last Admin: 10/05/16 22:37 Dose: 100 mls/hr Insulin Human Regular (Humulin R) 0 units SC ACHS [facility] PRN Reason: Protocol Last Admin: 10/06/16 08:33 Dose: Not Given Metronidazole (Flagyl) 500 mg PO Q8 [facility] Ondansetron HCl (Zofran Inj) 4 mg IVP Q6 PRN PRN Reason: Nausea/Vomiting Tramadol HCl (Ultram) 50 mg PO Q6 PRN PRN Reason: Pain, moderate (4-7) Last Admin: 10/05/16 13:55 Dose: 50 mg Valsartan (Diovan) 160 mg PO DAILY [facility] Last Admin: 10/06/16 08:32 Dose: 160 mg - Labs Labs: 10/06/16 06:50 10/06/16 06:50 PT 14.9 Seconds (9.8-13.1) H 10/05/16 04:55 INR 1.4 (0.9-1.2) H 10/05/16 04:55 APTT 29.2 Seconds (25.6-37.1) 10/03/16 17:20 Assessment and Plan - Assessment and Plan (Free Text) Plan: - Start low fat diet - pain control - Continue antibiotics - Trend LFT's - Will require cholecystectomy early next week - Will follow
[2016-10-06 07:50] LABS: MEAN CELL VOLUME 80.7 fl (80.0-94.0)
[2016-10-06 08:27] LABS: RBC URINE 7 /hpf (0-3); URINE BACTERIA RARE (<OCC); URINE BILIRUBIN NEGATIVE (NEGATIVE); URINE BLOOD NEGATIVE (NEGATIVE); URINE COLOR YELLOW (YELLOW); URINE GLUCOSE (UA) NEG (Normal); URINE KETONE TRACE mg/dL (NEGATIVE); URINE LEUKOCYTE ESTERASE NEG Leu/uL (Negative); URINE PROTEIN 30 mg/dL (NEGATIVE); URINE UROBILINOGEN 0.2-1.0 mg/dL (0.2-1.0); WBC URINE 1 /hpf (0-5)
[2016-10-06] MEDS: Insulin Regular 100 units/ml SC SCH ×4 (08:33→21:49)
[2016-10-06] MEDS: Enoxaparin 40 mg Syringe SC SCH (10:10)
--- NOTE | 2016-10-06 11:32 | CP.PCM.PN ---
Subjective - Date & Time of Evaluation Date of Evaluation: 10/06/16 Time of Evaluation: 11:00 - Subjective Subjective: No fever feels very much better minimal abd pain no CP no SOB tolerating liquid diet Objective - Vital Signs/Intake and Output Vital Signs (last 24 hours): Temp Pulse Resp BP Pulse Ox 98.7 F 61 20 154/72 H 97 10/06/16 08:23 10/06/16 08:32 10/06/16 08:23 10/06/16 08:32 10/06/16 08:23 Intake and Output: 10/06/16 10/06/16 06:59 18:59 Intake Total 1920 Output Total 2100 Balance -180 - Medications Medications: Current Medications Acetaminophen (Tylenol 650 Mg Supp) 650 mg [place] Q6 PRN PRN Reason: Fever >100.4 F Last Admin: 10/04/16 03:20 Dose: 650 mg Amlodipine Besylate (Norvasc) 10 mg PO DAILY [facility] Last Admin: 10/06/16 08:32 Dose: 10 mg Dextrose (Dextrose 50% Inj) 0 ml IV STAT PRN; Protocol PRN Reason: Hyglycemia Protocol Dextrose (Glutose 15) 0 gm PO ONCE PRN; Protocol PRN Reason: Hypoglycemia Protocol Enoxaparin Sodium (Lovenox) 40 mg SC DAILY [facility] PRN Reason: Protocol Last Admin: 10/06/16 10:10 Dose: 40 mg Famotidine (Pepcid) 20 mg IVP DAILY [facility] Last Admin: 10/06/16 08:34 Dose: 20 mg Glucagon (Glucagen Diagnostic Kit) 0 mg IM STAT PRN; Protocol PRN Reason: Hypoglycemia Protocol Guaifenesin/Dextromethorphan (Robitussin Dm) 10 ml PO Q4 PRN PRN Reason: Cough Hydromorphone HCl (Dilaudid) 0.5 mg IVP RQ4PRN PRN PRN Reason: Pain, severe (8-10) Last Admin: 10/04/16 21:35 Dose: 0.5 mg Lactated Ringer's (Lactated Ringer's) 1,000 mls @ 1,000 mls/hr IV .Q1H [facility] Last Admin: 10/03/16 19:18 Dose: 1,000 mls/hr Lactated Ringer's (Lactated Ringer's) 1,000 mls @ 1,000 mls/hr IV .Q1H [facility] Last Admin: 10/03/16 20:53 Dose: 1,000 mls/hr Meropenem 1 gm/ Sodium (Chloride) 100 mls @ 100 mls/hr IVPB Q8 [facility] Last Admin: 10/06/16 10:07 Dose: 100 mls/hr Lactated Ringer's (Lactated Ringer's) 1,000 mls @ 100 mls/hr IV .Q10H [facility] Last Admin: 10/05/16 22:37 Dose: 100 mls/hr Insulin Human Regular (Humulin R) 0 units SC ACHS [facility] PRN Reason: Protocol Last Admin: 10/06/16 08:33 Dose: Not Given Metronidazole (Flagyl) 500 mg PO Q8 [facility] Ondansetron HCl (Zofran Inj) 4 mg IVP Q6 PRN PRN Reason: Nausea/Vomiting Tramadol HCl (Ultram) 50 mg PO Q6 PRN PRN Reason: Pain, moderate (4-7) Last Admin: 10/05/16 13:55 Dose: 50 mg Valsartan (Diovan) 160 mg PO DAILY [facility] Last Admin: 10/06/16 08:32 Dose: 160 mg - Labs Labs: 10/06/16 06:50 10/06/16 06:50 PT 14.9 Seconds (9.8-13.1) H 10/05/16 04:55 INR 1.4 (0.9-1.2) H 10/05/16 04:55 APTT 29.2 Seconds (25.6-37.1) 10/03/16 17:20 - Constitutional Appears: No Acute Distress - Head Exam Head Exam: NORMAL INSPECTION, NORMOCEPHALIC - Eye Exam Eye Exam: EOMI, Normal appearance Pupil Exam: NORMAL ACCOMODATION - ENT Exam ENT Exam: Mucous Membranes Dry, Normal External Ear Exam - Neck Exam Neck Exam: Full ROM. absent: Meningismus - Respiratory Exam Respiratory Exam: NORMAL BREATHING PATTERN. absent: Rales, Wheezes, Respiratory Distress - Cardiovascular Exam Cardiovascular Exam: REGULAR RHYTHM, +S1, +S2 - GI/Abdominal Exam GI & Abdominal Exam: Distended, Soft, sl epigastric Tenderness, Normal Bowel Sounds - Extremities Exam Extremities Exam: Full ROM, Normal Capillary Refill. absent: Calf Tenderness, Pedal Edema Additional comments: left middle finger - distal portion with old, dry eschar - Back Exam Back Exam: Full ROM. absent: CVA tenderness (L), CVA tenderness (R) - Neurological Exam Neurological Exam: Alert, Awake, CN II-XII Intact, Oriented x3 Neuro motor strength exam: Left Upper Extremity: 5, Right Upper Extremity: 5, Left Lower Extremity: 5, Right Lower Extremity: 5 - Psychiatric Exam Psychiatric exam: Normal Affect, Normal Mood - Skin Skin Exam: Dry, Normal Color, Warm Assessment and Plan (1) Sepsis Status: Acute (2) Acute gallstone pancreatitis Status: Acute (3) Cholecystitis, acute Status: Acute (4) DM type 2 (diabetes mellitus, type 2) Status: Chronic (5) HTN (hypertension) Status: Chronic (6) DVT prophylaxis Status: Acute - Assessment and Plan (Free Text) Assessment: 86 y/o gent with known Hx of HTN, DM, Carotid Stenosis, BPH came in bec of abd pain. Found to have Elevated lipase, abn LFT, elevated WBC ct . CT of the abdomen : Prominence of the pancreatic head with adjacent inflammatory change and mild ductal dilatation, findings suggest pancreatitis , underlying neoplasm cannot be excluded; gallstone; no renal or ureteral stones or hydronephrosis; no CT findings of appendicitis or diverticulitis (1) Sepsis sec to Cholecystitis, Pancreatitis Status: Acute, improving Elevated WBC to 22k, elevated lactate level - now normal started initially on IV cefepime and Flagyl - Cefepime changed to meropenem by ID ID consulted - Dr Manzano Blood c/s: neg so far IVF hydration Monitored in ICU initially , now transferred to Med Surg (2) Acute gallstone pancreatitis Status: Acute Surgery consulted- Plan for Lap Rolanda on Sunday once pancreatitis resolves GI consult- discussed case with Dr Ramirez- rec MRCP MRCP : no Choledocholithiasis - so NO ERCP nor EUS IVF hydration Pain mgt cont IV abx Cardio consulted for cardiac optimization- ECHO normal EF, No significant Carotid stenosis on US - cleared by Dr Hernandez Lipase now normal LFTs trending down (3) Cholecystitis, acute Status: Acute Surgery consult as above cont IV Meropenem (4) DM type 2 (diabetes mellitus, type 2) Status: Chronic Hold oral hypoglycemics accucheck (5) HTN (hypertension) Status: Chronic start Diovan ( pt on Olmesartan at home ) add Norvasc 6. Carotid Stenosis , history ECHO- normal EF, wall motion Carotid Sono- no significant stenosis cont statin as outpt 7. Thrombocytopenia prob sec to Infection/Sepsis, unlikely HIT as Platelet dropped bfore Lovenox started monitor Plt- sl improved today 8. Left Middle Finger Swelling, dry ulcer /Eschar ( POA) - accdg to pt - this is chronic on and off - was placed on Clinda by his PMD prior to this admission - ID consulted - MRI of Finger - negative Osteomyelitis , may be cellulitis (8) DVT prophylaxis Status: Acute Lovenox- close monitoring as Plt [id number]
[2016-10-06] MEDS ORDERED: Potassium & Sodium Phosphate PO ONE (11:35)
--- NOTE | 2016-10-06 11:42 | RAD ---
HISTORY: Cough. COMPARISON: 10/03/2016. TECHNIQUE: Chest PA and lateral FINDINGS: LUNGS: No active pulmonary disease. PLEURA: No significant pleural effusion identified. No pneumothorax apparent. CARDIOVASCULAR: Cardiomegaly. No evidence of acute, significant cardiovascular disease. OSSEOUS STRUCTURES: No significant abnormalities. VISUALIZED UPPER ABDOMEN: Normal. OTHER FINDINGS: None. IMPRESSION: No active disease. No significant interval change compared to the prior examination(s).
--- NOTE | 2016-10-06 12:25 | CP.PCM.PN ---
Subjective - Date & Time of Evaluation Date of Evaluation: 10/06/16 Time of Evaluation: 12:25 - Subjective Subjective: ID Note- Pt. seen and examined today in med-surg floor. pt. is eating his lunch and is in good spirits and denies any nausea. denies any abdominal pain today. denies any fever or chills. Objective - Vital Signs/Intake and Output Vital Signs (last 24 hours): Temp Pulse Resp BP Pulse Ox 98.7 F 61 20 154/72 H 97 10/06/16 08:23 10/06/16 08:32 10/06/16 08:23 10/06/16 08:32 10/06/16 08:23 Intake and Output: 10/06/16 10/06/16 06:59 18:59 Intake Total 1920 Output Total 2100 Balance -180 - Medications Medications: Current Medications Acetaminophen (Tylenol 650 Mg Supp) 650 mg CA Q6 PRN PRN Reason: Fever >100.4 F Last Admin: 10/04/16 03:20 Dose: 650 mg Amlodipine Besylate (Norvasc) 10 mg PO DAILY [facility] Last Admin: 10/06/16 08:32 Dose: 10 mg Dextrose (Dextrose 50% Inj) 0 ml IV STAT PRN; Protocol PRN Reason: Hyglycemia Protocol Dextrose (Glutose 15) 0 gm PO ONCE PRN; Protocol PRN Reason: Hypoglycemia Protocol Enoxaparin Sodium (Lovenox) 40 mg SC DAILY [facility] PRN Reason: Protocol Last Admin: 10/06/16 10:10 Dose: 40 mg Famotidine (Pepcid) 20 mg IVP DAILY [facility] Last Admin: 10/06/16 08:34 Dose: 20 mg Glucagon (Glucagen Diagnostic Kit) 0 mg IM STAT PRN; Protocol PRN Reason: Hypoglycemia Protocol Guaifenesin/Dextromethorphan (Robitussin Dm) 10 ml PO Q4 PRN PRN Reason: Cough Hydromorphone HCl (Dilaudid) 0.5 mg IVP RQ4PRN PRN PRN Reason: Pain, severe (8-10) Last Admin: 10/04/16 21:35 Dose: 0.5 mg Lactated Ringer's (Lactated Ringer's) 1,000 mls @ 1,000 mls/hr IV .Q1H [facility] Last Admin: 10/03/16 19:18 Dose: 1,000 mls/hr Lactated Ringer's (Lactated Ringer's) 1,000 mls @ 1,000 mls/hr IV .Q1H [facility] Last Admin: 10/03/16 20:53 Dose: 1,000 mls/hr Meropenem 1 gm/ Sodium (Chloride) 100 mls @ 100 mls/hr IVPB Q8 [facility] Last Admin: 10/06/16 10:07 Dose: 100 mls/hr Lactated Ringer's (Lactated Ringer's) 1,000 mls @ 100 mls/hr IV .Q10H [facility] Last Admin: 10/05/16 22:37 Dose: 100 mls/hr Insulin Human Regular (Humulin R) 0 units SC ACHS [facility]UD[facility] PRN Reason: Protocol Last Admin: 10/06/16 08:33 Dose: Not Given Metronidazole (Flagyl) 500 mg PO Q8 [facility] Ondansetron HCl (Zofran Inj) 4 mg IVP Q6 PRN PRN Reason: Nausea/Vomiting Tramadol HCl (Ultram) 50 mg PO Q6 PRN PRN Reason: Pain, moderate (4-7) Last Admin: 10/05/16 13:55 Dose: 50 mg Valsartan (Diovan) 160 mg PO DAILY [facility] Last Admin: 10/06/16 08:32 Dose: 160 mg - Labs Labs: - Additional Findings Additional findings: Appears: No Acute Distress - Head Exam Head Exam: ATRAUMATIC - Eye Exam Eye Exam: EOMI, PERRL - ENT Exam ENT Exam: Normal Oropharynx - Neck Exam Neck exam: Positive for: Full Rom - Respiratory Exam Respiratory Exam: Clear to Auscultation Bilateral, NORMAL BREATHING PATTERN - Cardiovascular Exam Cardiovascular Exam: RRR, +S1, +S2 - GI/Abdominal Exam GI & Abdominal Exam: Normal Bowel Sounds, Soft Additional comments: No distention minimal + tenderness with palpation of the midepigastric region only, improved since admission no guarding No rebound No CVA tenderness B/l - Extremities Exam Additional comments: left middle dip phalanx region with small ulcer with eschar formation, no malodor, no active discharge no ulcers in the feet b/l no edema b/l LE - Neurological Exam Neurological exam: Alert, Oriented x 3 Laboratory Results - last 72 hr 10/03/16 10/03/16 10/03/16 17:20 17:20 17:20 WBC 17.4 H D RBC 5.02 Hgb 13.5 Hct 41.7 MCV 83.0 D MCH 26.9 L MCHC 32.4 L RDW 14.6 H Plt Count 152 MPV 9.5 Neut % (Auto) 95.7 H Lymph % (Auto) 2.4 L [place] % (Auto) 1.7 Eos % (Auto) 0.0 Baso % (Auto) 0.2 Neut # 16.7 H Lymph # 0.4 L [place] # 0.3 Eos # 0.0 Baso # 0.0 Neutrophils % (Manual) 86 H Band Neutrophils % 4 H Lymphocytes % (Manual) 5 L Reactive Lymphs % 1 H Monocytes % (Manual) 4 Platelet Estimate Normal Large Platelets Present Anisocytosis (manual) Slight ESR PT 11.3 INR 1.1 APTT 29.2 pO2 VBG pH VBG pCO2 VBG HCO3 VBG Total CO2 VBG O2 Sat (Calc) VBG Base Excess Glucose Lactate FiO2 Blood Gas Comments Crit Value Called To Crit Value Called By Crit Value Read Back Blood Gas Notified Time Sodium 139 Potassium 4.0 Chloride 102 Carbon Dioxide 23 Anion Gap 17 BUN 34 H Creatinine 1.0 Est GFR ( Amer) > 60 Est GFR (Non-Af Amer) > 60 POC Glucose (mg/dL) Random Glucose 140 H Hemoglobin A1c Calcium 9.5 Phosphorus Magnesium Total Bilirubin 1.3 Direct Bilirubin AST 207 H D ALT 156 H D Alkaline Phosphatase 128 H D Lactate Dehydrogenase Total Protein 7.8 Albumin 4.6 Globulin 3.2 Albumin/Globulin Ratio 1.4 Triglycerides Cholesterol LDL Cholesterol Direct HDL Cholesterol Lipase 99387 H Urine Color Urine Clarity Urine pH Ur Specific [place] Urine Protein Urine Glucose (UA) Urine Ketones Urine Blood Urine Nitrate Urine Bilirubin Urine Urobilinogen Ur Leukocyte Esterase Urine RBC (Auto) Urine Microscopic WBC Ur Squamous Epith Cells Urine Bacteria 10/03/16 10/03/16 10/03/16 17:50 21:45 22:54 WBC RBC Hgb Hct MCV MCH MCHC RDW Plt Count MPV Neut % (Auto) Lymph % (Auto) [place] % (Auto) Eos % (Auto) Baso % (Auto) Neut # Lymph # [place] # Eos # Baso # Neutrophils % (Manual) Band Neutrophils % Lymphocytes % (Manual) Reactive Lymphs % Monocytes % (Manual) Platelet Estimate Large Platelets Anisocytosis (manual) ESR PT INR APTT pO2 20 L 24 L VBG pH 7.34 7.43 VBG pCO2 45 36 L VBG HCO3 21.7 23.4 VBG Total CO2 25.7 25.0 VBG O2 Sat (Calc) 31.1 L 52.6 VBG Base Excess -1.7 L -0.1 L Glucose 132 H 118 H Lactate 2.6 H 3.8 H FiO2 21.0 21.0 Blood Gas Comments Vbg Vbg Crit Value Called To Dr maria dolores cortes Crit Value Called By 162 162 Crit Value Read Back Y Y Blood Gas Notified Time 1752 2149 Sodium 185.0 H* 183.0 H* Potassium Chloride 121.0 H 121.0 H Carbon Dioxide Anion Gap BUN Creatinine Est GFR ( Amer) Est GFR (Non-Af Amer) POC Glucose (mg/dL) 123 H Random Glucose Hemoglobin A1c Calcium Phosphorus Magnesium Total Bilirubin Direct Bilirubin AST ALT Alkaline Phosphatase Lactate Dehydrogenase Total Protein Albumin Globulin Albumin/Globulin Ratio Triglycerides Cholesterol LDL Cholesterol Direct HDL Cholesterol Lipase Urine Color Urine Clarity Urine pH Ur Specific [place] Urine Protein Urine Glucose (UA) Urine Ketones Urine Blood Urine Nitrate Urine Bilirubin Urine Urobilinogen Ur Leukocyte Esterase Urine RBC (Auto) Urine Microscopic WBC Ur Squamous Epith Cells Urine Bacteria 10/04/16 10/04/16 10/04/16 04:25 04:25 04:25 WBC 22.5 H RBC 4.19 L Hgb 11.1 L D Hct 34.3 L MCV 81.8 MCH 26.4 L MCHC 32.3 L RDW 14.1 Plt Count 122 L D MPV 9.9 Neut % (Auto) 92.7 H Lymph % (Auto) 1.5 L [place] % (Auto) 5.7 Eos % (Auto) 0.0 Baso % (Auto) 0.1 Neut # 20.9 H Lymph # 0.3 L [place] # 1.3 H Eos # 0.0 Baso # 0.0 Neutrophils % (Manual) 94 H Band Neutrophils % Lymphocytes % (Manual) 1 L Reactive Lymphs % Monocytes % (Manual) 5 Platelet Estimate Slightly decreased L Large Platelets Anisocytosis (manual) Slight ESR PT INR APTT pO2 VBG pH VBG pCO2 VBG HCO3 VBG Total CO2 VBG O2 Sat (Calc) VBG Base Excess Glucose Lactate FiO2 Blood Gas Comments Crit Value Called To Crit Value Called By Crit Value Read Back Blood Gas Notified Time Sodium 137 Potassium 3.8 Chloride 107 Carbon Dioxide 23 Anion Gap 11 BUN 25 H Creatinine 1.0 Est GFR ( Amer) > 60 Est GFR (Non-Af Amer) > 60 POC Glucose (mg/dL) Random Glucose 111 H Hemoglobin A1c 6.2 Calcium 8.3 L Phosphorus Magnesium 1.5 L Total Bilirubin 3.3 H Direct Bilirubin AST 296 H D ALT 349 H D Alkaline Phosphatase 108 Lactate Dehydrogenase Total Protein 5.9 L Albumin 3.2 L D Globulin 2.7 Albumin/Globulin Ratio 1.2 Triglycerides 53 D Cholesterol 127 LDL Cholesterol Direct 80 HDL Cholesterol 29 L Lipase 3990 H Urine Color Urine Clarity Urine pH Ur Specific [place] Urine Protein Urine Glucose (UA) Urine Ketones Urine Blood Urine Nitrate Urine Bilirubin Urine Urobilinogen Ur Leukocyte Esterase Urine RBC (Auto) Urine Microscopic WBC Ur Squamous Epith Cells Urine Bacteria 10/04/16 10/04/16 10/04/16 04:30 05:27 08:10 WBC RBC Hgb Hct MCV MCH MCHC RDW Plt Count MPV Neut % (Auto) Lymph % (Auto) [place] % (Auto) Eos % (Auto) Baso % (Auto) Neut # Lymph # [place] # Eos # Baso # Neutrophils % (Manual) Band Neutrophils % Lymphocytes % (Manual) Reactive Lymphs % Monocytes % (Manual) Platelet Estimate Large Platelets Anisocytosis (manual) ESR PT INR APTT pO2 VBG pH VBG pCO2 VBG HCO3 VBG Total CO2 VBG O2 Sat (Calc) VBG Base Excess Glucose Lactate FiO2 Blood Gas Comments Crit Value Called To Crit Value Called By Crit Value Read Back Blood Gas Notified Time Sodium Potassium Chloride Carbon Dioxide Anion Gap BUN Creatinine Est GFR ( Amer) Est GFR (Non-Af Amer) POC Glucose (mg/dL) 113 H Random Glucose Hemoglobin A1c Calcium Phosphorus Magnesium Total Bilirubin Direct Bilirubin AST ALT Alkaline Phosphatase Lactate Dehydrogenase Total Protein Albumin Globulin Albumin/Globulin Ratio Triglycerides 53 Cholesterol 126 LDL Cholesterol Direct 86 HDL Cholesterol 27 L Lipase Urine Color Yellow Urine Clarity Slighty-cloudy Urine pH 6.0 Ur Specific [place] 1.020 Urine Protein 30 Urine Glucose (UA) Neg Urine Ketones Trace Urine Blood Negative Urine Nitrate Negative Urine Bilirubin Negative Urine Urobilinogen 0.2-1.0 Ur Leukocyte Esterase Neg Urine RBC (Auto) 7 H Urine Microscopic WBC 1 Ur Squamous Epith Cells Urine Bacteria Rare 10/04/16 10/04/16 10/04/16 08:20 11:04 15:27 WBC RBC Hgb Hct MCV MCH MCHC RDW Plt Count MPV Neut % (Auto) Lymph % (Auto) [place] % (Auto) Eos % (Auto) Baso % (Auto) Neut # Lymph # [place] # Eos # Baso # Neutrophils % (Manual) Band Neutrophils % Lymphocytes % (Manual) Reactive Lymphs % Monocytes % (Manual) Platelet Estimate Large Platelets Anisocytosis (manual) ESR 19 PT INR APTT pO2 VBG pH VBG pCO2 VBG HCO3 VBG Total CO2 VBG O2 Sat (Calc) VBG Base Excess Glucose Lactate FiO2 Blood Gas Comments Crit Value Called To Crit Value Called By Crit Value Read Back Blood Gas Notified Time Sodium Potassium Chloride Carbon Dioxide Anion Gap BUN Creatinine Est GFR ( Amer) Est GFR (Non-Af Amer) POC Glucose (mg/dL) 107 Random Glucose Hemoglobin A1c Calcium Phosphorus Magnesium Total Bilirubin Direct Bilirubin AST ALT Alkaline Phosphatase Lactate Dehydrogenase Total Protein Albumin Globulin Albumin/Globulin Ratio Triglycerides Cholesterol LDL Cholesterol Direct HDL Cholesterol Lipase Urine Color Yellow Urine Clarity Clear Urine pH 6.0 Ur Specific [place] 1.013 Urine Protein Negative Urine Glucose (UA) Neg Urine Ketones Negative Urine Blood Negative Urine Nitrate Negative Urine Bilirubin Negative Urine Urobilinogen 0.2-1.0 Ur Leukocyte Esterase Neg Urine RBC (Auto) 3 Urine Microscopic WBC < 1 Ur Squamous Epith Cells < 1 Urine Bacteria 10/04/16 10/04/16 10/05/16 15:57 21:23 04:36 WBC RBC Hgb Hct MCV MCH MCHC RDW Plt Count MPV Neut % (Auto) Lymph % (Auto) [place] % (Auto) Eos % (Auto) Baso % (Auto) Neut # Lymph # [place] # Eos # Baso # Neutrophils % (Manual) Band Neutrophils % Lymphocytes % (Manual) Reactive Lymphs % Monocytes % (Manual) Platelet Estimate Large Platelets Anisocytosis (manual) ESR PT INR APTT pO2 VBG pH VBG pCO2 VBG HCO3 VBG Total CO2 VBG O2 Sat (Calc) VBG Base Excess Glucose Lactate FiO2 Blood Gas Comments Crit Value Called To Crit Value Called By Crit Value Read Back Blood Gas Notified Time Sodium Potassium Chloride Carbon Dioxide Anion Gap BUN Creatinine Est GFR ( Amer) Est GFR (Non-Af Amer) POC Glucose (mg/dL) 93 87 83 Random Glucose Hemoglobin A1c Calcium Phosphorus Magnesium Total Bilirubin Direct Bilirubin AST ALT Alkaline Phosphatase Lactate Dehydrogenase Total Protein Albumin Globulin Albumin/Globulin Ratio Triglycerides Cholesterol LDL Cholesterol Direct HDL Cholesterol Lipase Urine Color Urine Clarity Urine pH Ur Specific [place] Urine Protein Urine Glucose (UA) Urine Ketones Urine Blood Urine Nitrate Urine Bilirubin Urine Urobilinogen Ur Leukocyte Esterase Urine RBC (Auto) Urine Microscopic WBC Ur Squamous Epith Cells Urine Bacteria 10/05/16 10/05/16 10/05/16 04:55 04:55 04:55 WBC 9.0 D RBC 4.42 Hgb 11.8 L Hct 36.6 MCV 82.9 MCH 26.7 L MCHC 32.2 L RDW 14.8 H Plt Count 95 L D MPV 9.7 Neut % (Auto) 86.4 H Lymph % (Auto) 4.9 L [place] % (Auto) 8.3 Eos % (Auto) 0.2 Baso % (Auto) 0.2 Neut # 7.8 H Lymph # 0.4 L [place] # 0.7 Eos # 0.0 Baso # 0.0 Neutrophils % (Manual) Band Neutrophils % Lymphocytes % (Manual) Reactive Lymphs % Monocytes % (Manual) Platelet Estimate Large Platelets Anisocytosis (manual) ESR PT 14.9 H INR 1.4 H APTT pO2 VBG pH VBG pCO2 VBG HCO3 VBG Total CO2 VBG O2 Sat (Calc) VBG Base Excess Glucose Lactate FiO2 Blood Gas Comments Crit Value Called To Crit Value Called By Crit Value Read Back Blood Gas Notified Time Sodium 138 Potassium 3.9 Chloride 109 H Carbon Dioxide 20 L Anion Gap 13 BUN 22 H Creatinine 0.9 Est GFR ( Amer) > 60 Est GFR (Non-Af Amer) > 60 POC Glucose (mg/dL) Random Glucose 87 Hemoglobin A1c Calcium 7.7 L Phosphorus 2.2 L Magnesium 2.3 Total Bilirubin 1.9 H Direct Bilirubin 1.2 H AST 128 H D ALT 236 H D Alkaline Phosphatase 112 Lactate Dehydrogenase 424 Total Protein 5.9 L Albumin 3.2 L Globulin 2.7 Albumin/Globulin Ratio 1.2 Triglycerides Cholesterol LDL Cholesterol Direct HDL Cholesterol Lipase 305 H Urine Color Urine Clarity Urine pH Ur Specific [place] Urine Protein Urine Glucose (UA) Urine Ketones Urine Blood Urine Nitrate Urine Bilirubin Urine Urobilinogen Ur Leukocyte Esterase Urine RBC (Auto) Urine Microscopic WBC Ur Squamous Epith Cells Urine Bacteria 10/05/16 10/05/16 10/05/16 11:08 15:47 21:46 WBC RBC Hgb Hct MCV MCH MCHC RDW Plt Count MPV Neut % (Auto) Lymph % (Auto) [place] % (Auto) Eos % (Auto) Baso % (Auto) Neut # Lymph # [place] # Eos # Baso # Neutrophils % (Manual) Band Neutrophils % Lymphocytes % (Manual) Reactive Lymphs % Monocytes % (Manual) Platelet Estimate Large Platelets Anisocytosis (manual) ESR PT INR APTT pO2 VBG pH VBG pCO2 VBG HCO3 VBG Total CO2 VBG O2 Sat (Calc) VBG Base Excess Glucose Lactate FiO2 Blood Gas Comments Crit Value Called To Crit Value Called By Crit Value Read Back Blood Gas Notified Time Sodium Potassium Chloride Carbon Dioxide Anion Gap BUN Creatinine Est GFR ( Amer) Est GFR (Non-Af Amer) POC Glucose (mg/dL) 85 98 91 Random Glucose Hemoglobin A1c Calcium Phosphorus Magnesium Total Bilirubin Direct Bilirubin AST ALT Alkaline Phosphatase Lactate Dehydrogenase Total Protein Albumin Globulin Albumin/Globulin Ratio Triglycerides Cholesterol LDL Cholesterol Direct HDL Cholesterol Lipase Urine Color Urine Clarity Urine pH Ur Specific [place] Urine Protein Urine Glucose (UA) Urine Ketones Urine Blood Urine Nitrate Urine Bilirubin Urine Urobilinogen Ur Leukocyte Esterase Urine RBC (Auto) Urine Microscopic WBC Ur Squamous Epith Cells Urine Bacteria 10/06/16 10/06/16 10/06/16 05:44 06:50 06:50 WBC 5.2 RBC 4.45 Hgb 12.1 Hct 35.9 MCV 80.7 D MCH 27.1 MCHC 33.6 RDW 14.4 Plt Count 113 L MPV 9.3 Neut % (Auto) 74.0 Lymph % (Auto) 8.6 L [place] % (Auto) 16.5 H Eos % (Auto) 0.6 Baso % (Auto) 0.3 Neut # 3.8 Lymph # 0.4 L [place] # 0.9 H Eos # 0.0 Baso # 0.0 Neutrophils % (Manual) Band Neutrophils % Lymphocytes % (Manual) Reactive Lymphs % Monocytes % (Manual) Platelet Estimate Large Platelets Anisocytosis (manual) ESR PT INR APTT pO2 VBG pH VBG pCO2 VBG HCO3 VBG Total CO2 VBG O2 Sat (Calc) VBG Base Excess Glucose Lactate FiO2 Blood Gas Comments Crit Value Called To Crit Value Called By Crit Value Read Back Blood Gas Notified Time Sodium 133 Potassium 3.7 Chloride 105 Carbon Dioxide 22 Anion Gap 10 BUN 17 Creatinine 0.8 Est GFR ( Amer) > 60 Est GFR (Non-Af Amer) > 60 POC Glucose (mg/dL) 83 Random Glucose 93 Hemoglobin A1c Calcium 8.1 L Phosphorus 1.7 L Magnesium 2.0 Total Bilirubin 1.1 Direct Bilirubin 0.6 H AST 86 H D ALT 159 H D Alkaline Phosphatase 120 Lactate Dehydrogenase Total Protein 6.0 L Albumin 3.2 L Globulin 2.8 Albumin/Globulin Ratio 1.1 Triglycerides Cholesterol LDL Cholesterol Direct HDL Cholesterol Lipase 66 Urine Color Urine Clarity Urine pH Ur Specific [place] Urine Protein Urine Glucose (UA) Urine Ketones Urine Blood Urine Nitrate Urine Bilirubin Urine Urobilinogen Ur Leukocyte Esterase Urine RBC (Auto) Urine Microscopic WBC Ur Squamous Epith Cells Urine Bacteria 10/06/16 11:07 WBC RBC Hgb Hct MCV MCH MCHC RDW Plt Count MPV Neut % (Auto) Lymph % (Auto) [place] % (Auto) Eos % (Auto) Baso % (Auto) Neut # Lymph # [place] # Eos # Baso # Neutrophils % (Manual) Band Neutrophils % Lymphocytes % (Manual) Reactive Lymphs % Monocytes % (Manual) Platelet Estimate Large Platelets Anisocytosis (manual) ESR PT INR APTT pO2 VBG pH VBG pCO2 VBG HCO3 VBG Total CO2 VBG O2 Sat (Calc) VBG Base Excess Glucose Lactate FiO2 Blood Gas Comments Crit Value Called To Crit Value Called By Crit Value Read Back Blood Gas Notified Time Sodium Potassium Chloride Carbon Dioxide Anion Gap BUN Creatinine Est GFR ( Amer) Est GFR (Non-Af Amer) POC Glucose (mg/dL) 90 Random Glucose Hemoglobin A1c Calcium Phosphorus Magnesium Total Bilirubin Direct Bilirubin AST ALT Alkaline Phosphatase Lactate Dehydrogenase Total Protein Albumin Globulin Albumin/Globulin Ratio Triglycerides Cholesterol LDL Cholesterol Direct HDL Cholesterol Lipase Urine Color Urine Clarity Urine pH Ur Specific [place] Urine Protein Urine Glucose (UA) Urine Ketones Urine Blood Urine Nitrate Urine Bilirubin Urine Urobilinogen Ur Leukocyte Esterase Urine RBC (Auto) Urine Microscopic WBC Ur Squamous Epith Cells Urine Bacteria Microbiology 10/03/16 08:20 Nose MRSA Culture (Admit) - Final MRSA NOT DETECTED 10/03/16 16:45 Blood Blood Culture - Preliminary NO GROWTH AFTER 48 HOURS 10/03/16 16:30 Blood Blood Culture - Preliminary NO GROWTH AFTER 48 HOURS 10/03/16 17:20 Urine Urine Culture - Final No Growth (<1,000 CFU/ML) Assessment and Plan (1) Cholecystitis, acute Status: Acute (2) Acute pancreatitis Status: Acute (3) Leukocytosis Status: Acute (4) Fever Status: Acute - Assessment and Plan (Free Text) Assessment: A/P- 86 year old male with DM II, HTN, hyperlipidemia admitted with abd pain, fever and leukocytosis foudn to have cholecystitis and gallstome pancreatitis. clinically much better. afebrile. leukocytois has resolved. abd CT and US and MRCP reports noted MRCP negative for Choledocholithiasis cxr- negative as per report. blood cx- negative x 2 urine cx- negative left middle DIP small escahr ulcer. LFTs are trending down, lipase trending down. plan- advise to continue with meropenm day #3 advise to continue with metronidazole. day #3 can be switched to oral metronidazole. as per surgical note cholecystectomy next week. advise to also check ESR and MRI of the left DIP digit to rule out OM.( low suspicion). all above d/w patient and his son who is at bedside and all their questions were answered and they verbalize full understanding of all above.
--- NOTE | 2016-10-06 13:22 | CARD ---
APPROVED REPORT EKG Measurement Heart [id number] ID [id number] <Conclusion> Normal sinus rhythm Normal ECG
--- NOTE | 2016-10-06 14:51 | MRI ---
PROCEDURE: MRI of the left hand without contrast. HISTORY: Left middle finger swelling r/o Osteomyelitis COMPARISON: No prior similar study available for comparison. TECHNIQUE: Axial coronal and sagittal MRI images of the left hand were obtained without IV contrast administration. FINDINGS: There is no evidence of bone marrow edema or cortical erosion at the middle finger to suggest active/ acute osteomyelitis. Small focal skin and subcutaneous swelling seen adjacent to the proximal interphalangeal joint may represent cellulitis. Otherwise the visualized soft tissue is grossly unremarkable. IMPRESSION: No MRI evidence of osteomyelitis. Small focal skin and subcutaneous swelling seen at the left middle finger may represent cellulitis. No evidence of discrete fluid collection.
[2016-10-06] MEDS: Lactated Ringer's 1,000 ML IV SCH (21:11)
[2016-10-07] MEDS: Meropenem 1 GM in Sodium Chloride 0.9% 100 ML IVPB SCH ×3 (00:12→16:32)
[2016-10-07 08:34] LABS: HEMATOCRIT 39.7 % (35.0-51.0); MEAN CELL VOLUME 81.2 fl (80.0-94.0); MEAN CORPUSCULAR HEMOGLOBIN 26.7 pg (27.0-31.0); MEAN CORPUSCULAR HGB CONC 32.9 g/dL (33.0-37.0); RED CELL DISTRIBUTION WIDTH 14.6 % (11.5-14.5); WHITE BLOOD COUNT 3.5 K/uL (4.8-10.8)
[2016-10-07] MEDS: Insulin Regular 100 units/ml SC SCH ×5 (08:38→21:47)
[2016-10-07] MEDS: Enoxaparin 40 mg Syringe SC SCH (08:39)
[2016-10-07 08:52] LABS: ALB/GLOB RATIO 1.1 (1.0-2.1); ALKALINE PHOSPHATASE 139 U/L (38-126); ALT/SGPT 137 U/L (21-72); AST/SGOT 68 U/L (17-59); BILIRUBIN,TOTAL 0.9 mg/dl (0.2-1.3); BLOOD UREA NITROGEN 15 mg/dl (9-20); CALCIUM 8.5 mg/dL (8.4-10.2); CARBON DIOXIDE 22 mmol/L (22-30); CHLORIDE 104 mmol/L (98-107); GFR AFRICAN-AMERICAN > 60; GLUCOSE,RANDOM 101 mg/dL (75-110); POTASSIUM 3.9 MMOL/L (3.6-5.0); SODIUM 137 mmol/l (132-148); TOTAL PROTEIN 6.6 G/DL (6.3-8.2)
--- NOTE | 2016-10-07 09:38 | CP.PCM.PN ---
Subjective - Date & Time of Evaluation Date of Evaluation: 10/07/16 Time of Evaluation: 09:00 - Subjective Subjective: No fever feels better abd pain resolved - very sl epigastric tenderness on palpation no N/V no SOB no CP no signs of bleeding Plan for Lap Rolanda on Sunday Lipase and LFTs trended down Objective - Vital Signs/Intake and Output Vital Signs (last 24 hours): Temp Pulse Resp BP Pulse Ox 97.7 F 62 18 128/67 98 10/07/16 08:15 10/07/16 08:40 10/07/16 08:15 10/07/16 08:40 10/07/16 08:15 Intake and Output: 10/07/16 10/07/16 06:59 18:59 Intake Total 1440 Output Total 1100 Balance 340 - Medications Medications: Current Medications Acetaminophen (Tylenol 650 Mg Supp) 650 mg [place] Q6 PRN PRN Reason: Fever >100.4 F Last Admin: 10/04/16 03:20 Dose: 650 mg Alprazolam (Xanax) 0.25 mg PO Q12 PRN PRN Reason: Anxiety Stop: 10/13/16 17:39 Last Admin: 10/06/16 21:03 Dose: 0.25 mg Amlodipine Besylate (Norvasc) 10 mg PO DAILY [facility] Last Admin: 10/07/16 08:40 Dose: 10 mg Dextrose (Dextrose 50% Inj) 0 ml IV STAT PRN; Protocol PRN Reason: Hyglycemia Protocol Dextrose (Glutose 15) 0 gm PO ONCE PRN; Protocol PRN Reason: Hypoglycemia Protocol Enoxaparin Sodium (Lovenox) 40 mg SC DAILY [facility] PRN Reason: Protocol Last Admin: 10/07/16 08:39 Dose: 40 mg Famotidine (Pepcid) 20 mg IVP DAILY [facility] Last Admin: 10/07/16 08:45 Dose: 20 mg Glucagon (Glucagen Diagnostic Kit) 0 mg IM STAT PRN; Protocol PRN Reason: Hypoglycemia Protocol Guaifenesin/Dextromethorphan (Robitussin Dm) 10 ml PO Q4 PRN PRN Reason: Cough Hydromorphone HCl (Dilaudid) 0.5 mg IVP RQ4PRN PRN PRN Reason: Pain, severe (8-10) Last Admin: 10/04/16 21:35 Dose: 0.5 mg Lactated Ringer's (Lactated Ringer's) 1,000 mls @ 1,000 mls/hr IV .Q1H [facility] Last Admin: 10/03/16 19:18 Dose: 1,000 mls/hr Lactated Ringer's (Lactated Ringer's) 1,000 mls @ 1,000 mls/hr IV .Q1H [facility] Last Admin: 10/03/16 20:53 Dose: 1,000 mls/hr Meropenem 1 gm/ Sodium (Chloride) 100 mls @ 100 mls/hr IVPB Q8 [facility] Last Admin: 10/07/16 08:40 Dose: 100 mls/hr Lactated Ringer's (Lactated Ringer's) 1,000 mls @ 100 mls/hr IV .Q10H [facility] Last Admin: 10/06/16 21:11 Dose: 100 mls/hr Insulin Human Regular (Humulin R) 0 units SC ACHS [facility] PRN Reason: Protocol Last Admin: 10/07/16 08:38 Dose: Not Given Metronidazole (Flagyl) 500 mg PO Q8 [facility] Last Admin: 10/07/16 08:38 Dose: 500 mg Ondansetron HCl (Zofran Inj) 4 mg IVP Q6 PRN PRN Reason: Nausea/Vomiting Tramadol HCl (Ultram) 50 mg PO Q6 PRN PRN Reason: Pain, moderate (4-7) Last Admin: 10/05/16 13:55 Dose: 50 mg Valsartan (Diovan) 160 mg PO DAILY [facility] Last Admin: 10/07/16 08:38 Dose: 160 mg - Labs Labs: 10/07/16 06:30 10/07/16 06:30 PT 12.5 Seconds (9.8-13.1) 10/07/16 06:30 INR 1.2 (0.9-1.2) 10/07/16 06:30 APTT 29.2 Seconds (25.6-37.1) 10/03/16 17:20 - Constitutional Appears: No Acute Distress - Head Exam Head Exam: NORMAL INSPECTION, NORMOCEPHALIC - Eye Exam Eye Exam: EOMI, Normal appearance Pupil Exam: NORMAL ACCOMODATION - ENT Exam ENT Exam: Mucous Membranes Dry, Normal External Ear Exam - Neck Exam Neck Exam: Full ROM. absent: Meningismus - Respiratory Exam Respiratory Exam: NORMAL BREATHING PATTERN. absent: Rales, Wheezes, Respiratory Distress - Cardiovascular Exam Cardiovascular Exam: REGULAR RHYTHM, +S1, +S2 - GI/Abdominal Exam GI & Abdominal Exam: Distended, Soft, sl epigastric Tenderness, Normal Bowel Sounds - Extremities Exam Extremities Exam: Full ROM, Normal Capillary Refill. absent: Calf Tenderness, Pedal Edema Additional comments: left middle finger - distal portion with old, dry eschar - Back Exam Back Exam: Full ROM. absent: CVA tenderness (L), CVA tenderness (R) - Neurological Exam Neurological Exam: Alert, Awake, CN II-XII Intact, Oriented x3 Neuro motor strength exam: Left Upper Extremity: 5, Right Upper Extremity: 5, Left Lower Extremity: 5, Right Lower Extremity: 5 - Psychiatric Exam Psychiatric exam: Normal Affect, Normal Mood - Skin Skin Exam: Dry, Normal Color, Warm Assessment and Plan (1) Sepsis Status: Acute (2) Acute gallstone pancreatitis Status: Acute (3) Cholecystitis, acute Status: Acute (4) DM type 2 (diabetes mellitus, type 2) Status: Chronic (5) HTN (hypertension) Status: Chronic (6) DVT prophylaxis Status: Acute (7) Thrombocytopenia Status: Acute - Assessment and Plan (Free Text) Assessment: 86 y/o gent with known Hx of HTN, DM, Carotid Stenosis, BPH came in bec of abd pain. Found to have Elevated lipase, abn LFT, elevated WBC ct . CT of the abdomen : Prominence of the pancreatic head with adjacent inflammatory change and mild ductal dilatation, findings suggest pancreatitis , underlying neoplasm cannot be excluded; gallstone; no renal or ureteral stones or hydronephrosis; no CT findings of appendicitis or diverticulitis Pt was started on IVF hydration, Pain mgt and IV antibiotics. Surgery consulted - plan for Lap Rolanda on Sunday (1) Sepsis sec to Cholecystitis, Pancreatitis Status: Acute, improving Elevated WBC to 22k, elevated lactate level - now normal started initially on IV cefepime and Flagyl - Cefepime changed to meropenem by ID ID consulted - Dr Manzano Blood c/s: neg so far IVF hydration Monitored in ICU initially , now transferred to Med Surg Plan for Lap Rolanda Sunday (2) Acute gallstone pancreatitis Status: Acute Surgery consulted- Plan for Lap Rolanda on Sunday GI consult- discussed case with Dr Ramirez- rec MRCP MRCP : no Choledocholithiasis - so NO ERCP nor EUS IVF hydration Pain mgt cont IV abx Cardio consulted for cardiac optimization- ECHO normal EF, No significant Carotid stenosis on US - cleared by Dr Hernandez Lipase now normal LFTs trending down (3) Cholecystitis, acute Status: Acute Surgery consult as above cont IV Meropenem (4) DM type 2 (diabetes mellitus, type 2) Status: Chronic Hold oral hypoglycemics accucheck with coverage (5) HTN (hypertension) Status: Chronic started Diovan ( pt on Olmesartan at home ) added Norvasc 6. Carotid Stenosis , history ECHO- normal EF, wall motion Carotid Sono- no significant stenosis cont statin as outpt 7. Thrombocytopenia prob sec to Infection/Sepsis, unlikely HIT as Platelet dropped bfore Lovenox started monitor Plt- improved today 8. Left Middle Finger Swelling, dry ulcer /Eschar ( POA) - accdg to pt - this is chronic on and off - was placed on Clinda by his PMD prior to this admission - ID consulted - MRI of Finger - negative Osteomyelitis , may be cellulitis - pt is on abx (8) DVT prophylaxis Status: Acute Lovenox- close monitoring as Plt 113
--- NOTE | 2016-10-07 11:20 | CP.PCM.PN ---
<RichNed - Last Filed: 10/07/16 11:17> Subjective - Date & Time of Evaluation Date of Evaluation: 10/07/16 Time of Evaluation: 11:17 - Subjective Subjective: Surgery Pt s&e. NAEON. Denies F/C/N/V/D. TOlerating diet. + amb. Pain controlled. + void Objective - Vital Signs/Intake and Output Vital Signs (last 24 hours): Temp Pulse Resp BP Pulse Ox 97.7 F 62 18 128/67 98 10/07/16 08:15 10/07/16 08:40 10/07/16 08:15 10/07/16 08:40 10/07/16 08:15 Intake and Output: 10/07/16 10/07/16 06:59 18:59 Intake Total 1440 Output Total 1100 Balance 340 - Medications Medications: Current Medications Acetaminophen (Tylenol 650 Mg Supp) 650 mg [place] Q6 PRN PRN Reason: Fever >100.4 F Last Admin: 10/04/16 03:20 Dose: 650 mg Alprazolam (Xanax) 0.25 mg PO Q12 PRN PRN Reason: Anxiety Stop: 10/13/16 17:39 Last Admin: 10/06/16 21:03 Dose: 0.25 mg Amlodipine Besylate (Norvasc) 10 mg PO DAILY [facility] Last Admin: 10/07/16 08:40 Dose: 10 mg Dextrose (Dextrose 50% Inj) 0 ml IV STAT PRN; Protocol PRN Reason: Hyglycemia Protocol Dextrose (Glutose 15) 0 gm PO ONCE PRN; Protocol PRN Reason: Hypoglycemia Protocol Enoxaparin Sodium (Lovenox) 40 mg SC DAILY [facility] PRN Reason: Protocol Last Admin: 10/07/16 08:39 Dose: 40 mg Famotidine (Pepcid) 20 mg IVP DAILY [facility] Last Admin: 10/07/16 08:45 Dose: 20 mg Glucagon (Glucagen Diagnostic Kit) 0 mg IM STAT PRN; Protocol PRN Reason: Hypoglycemia Protocol Guaifenesin/Dextromethorphan (Robitussin Dm) 10 ml PO Q4 PRN PRN Reason: Cough Hydromorphone HCl (Dilaudid) 0.5 mg IVP RQ4PRN PRN PRN Reason: Pain, severe (8-10) Last Admin: 10/04/16 21:35 Dose: 0.5 mg Lactated Ringer's (Lactated Ringer's) 1,000 mls @ 1,000 mls/hr IV .Q1H [facility] Last Admin: 10/03/16 19:18 Dose: 1,000 mls/hr Lactated Ringer's (Lactated Ringer's) 1,000 mls @ 1,000 mls/hr IV .Q1H [facility] Last Admin: 10/03/16 20:53 Dose: 1,000 mls/hr Meropenem 1 gm/ Sodium (Chloride) 100 mls @ 100 mls/hr IVPB Q8 [facility] Last Admin: 10/07/16 08:40 Dose: 100 mls/hr Lactated Ringer's (Lactated Ringer's) 1,000 mls @ 100 mls/hr IV .Q10H [facility] Last Admin: 10/06/16 21:11 Dose: 100 mls/hr Insulin Human Regular (Humulin R) 0 units SC ACHS [facility] PRN Reason: Protocol Last Admin: 10/07/16 08:38 Dose: Not Given Metronidazole (Flagyl) 500 mg PO Q8 [facility] Last Admin: 10/07/16 08:38 Dose: 500 mg Ondansetron HCl (Zofran Inj) 4 mg IVP Q6 PRN PRN Reason: Nausea/Vomiting Tramadol HCl (Ultram) 50 mg PO Q6 PRN PRN Reason: Pain, moderate (4-7) Last Admin: 10/05/16 13:55 Dose: 50 mg Valsartan (Diovan) 160 mg PO DAILY [facility] Last Admin: 10/07/16 08:38 Dose: 160 mg - Labs Labs: 10/07/16 06:30 10/07/16 06:30 PT 12.5 Seconds (9.8-13.1) 10/07/16 06:30 INR 1.2 (0.9-1.2) 10/07/16 06:30 APTT 29.2 Seconds (25.6-37.1) 10/03/16 17:20 - Constitutional Appears: No Acute Distress - Head Exam Head Exam: ATRAUMATIC, NORMAL INSPECTION, NORMOCEPHALIC - Eye Exam Eye Exam: EOMI, Normal appearance, PERRL Pupil Exam: NORMAL ACCOMODATION, PERRL - ENT Exam ENT Exam: Mucous Membranes Moist, Normal Exam - Neck Exam Neck Exam: Full ROM, Normal Inspection. absent: Lymphadenopathy - Respiratory Exam Respiratory Exam: Clear to Ausculation Bilateral, NORMAL BREATHING PATTERN - Cardiovascular Exam Cardiovascular Exam: REGULAR RHYTHM, +S1, +S2. absent: Murmur - GI/Abdominal Exam GI & Abdominal Exam: Soft, Normal Bowel Sounds. absent: Distended, Firm, Guarding, Rigid, Tenderness - Back Exam Back Exam: NORMAL INSPECTION - Neurological Exam Neurological Exam: Alert, Awake, CN II-XII Intact, Normal Gait, Oriented x3 - Psychiatric Exam Psychiatric exam: Normal Affect, Normal Mood - Skin Skin Exam: Dry, Intact, Normal Color, Warm Assessment and Plan - Assessment and Plan (Free Text) Assessment: 6 yo M w/ gallstone pancreatitis -Continue liquid diet. NPO after midnight on Sunday -Tbili and Lipase trending down, continue to follow LFTs: trendg down -Medical optimization: Cardiology cleared -Plan for cholecystectomy likely Sunday discussed with Dr. Watson <Maynor Watson - Last Filed: 10/07/16 16:38> Subjective - Date & Time of Evaluation Time of Evaluation: 16:20 - Subjective Subjective: Patient was seen and examined at the bedside. Agree with resident's note above. Objective - Vital Signs/Intake and Output Vital Signs (last 24 hours): Temp Pulse Resp BP Pulse Ox 97.3 F L 59 L 17 136/62 97 10/07/16 16:12 10/07/16 16:12 10/07/16 16:12 10/07/16 16:12 10/07/16 16:12 Intake and Output: 10/07/16 10/07/16 06:59 18:59 Intake Total 1440 400 Output Total 1100 Balance 340 400 - Medications Medications: Current Medications Acetaminophen (Tylenol 650 Mg Supp) 650 mg [place] Q6 PRN PRN Reason: Fever >100.4 F Last Admin: 10/04/16 03:20 Dose: 650 mg Alprazolam (Xanax) 0.25 mg PO Q12 PRN PRN Reason: Anxiety Stop: 10/13/16 17:39 Last Admin: 10/06/16 21:03 Dose: 0.25 mg Amlodipine Besylate (Norvasc) 10 mg PO DAILY [facility] Last Admin: 10/07/16 08:40 Dose: 10 mg Dextrose (Dextrose 50% Inj) 0 ml IV STAT PRN; Protocol PRN Reason: Hyglycemia Protocol Dextrose (Glutose 15) 0 gm PO ONCE PRN; Protocol PRN Reason: Hypoglycemia Protocol Enoxaparin Sodium (Lovenox) 40 mg SC DAILY [facility] PRN Reason: Protocol Last Admin: 10/07/16 08:39 Dose: 40 mg Famotidine (Pepcid) 20 mg IVP DAILY [facility] Last Admin: 10/07/16 08:45 Dose: 20 mg Glucagon (Glucagen Diagnostic Kit) 0 mg IM STAT PRN; Protocol PRN Reason: Hypoglycemia Protocol Guaifenesin/Dextromethorphan (Robitussin Dm) 10 ml PO Q4 PRN PRN Reason: Cough Hydromorphone HCl (Dilaudid) 0.5 mg IVP RQ4PRN PRN PRN Reason: Pain, severe (8-10) Last Admin: 10/04/16 21:35 Dose: 0.5 mg Lactated Ringer's (Lactated Ringer's) 1,000 mls @ 1,000 mls/hr IV .Q1H [facility] Last Admin: 10/03/16 19:18 Dose: 1,000 mls/hr Lactated Ringer's (Lactated Ringer's) 1,000 mls @ 1,000 mls/hr IV .Q1H [facility] Last Admin: 10/03/16 20:53 Dose: 1,000 mls/hr Meropenem 1 gm/ Sodium (Chloride) 100 mls @ 100 mls/hr IVPB Q8 [facility] Last Admin: 10/07/16 16:32 Dose: 100 mls/hr Lactated Ringer's (Lactated Ringer's) 1,000 mls @ 100 mls/hr IV .Q10H [facility] Last Admin: 10/07/16 14:39 Dose: 100 mls/hr Insulin Human Regular (Humulin R) 0 units SC ACHS [facility] PRN Reason: Protocol Last Admin: 10/07/16 16:34 Dose: Not Given Metronidazole (Flagyl) 500 mg PO Q8 [facility] Last Admin: 10/07/16 16:33 Dose: 500 mg Ondansetron HCl (Zofran Inj) 4 mg IVP Q6 PRN PRN Reason: Nausea/Vomiting Tramadol HCl (Ultram) 50 mg PO Q6 PRN PRN Reason: Pain, moderate (4-7) Last Admin: 10/05/16 13:55 Dose: 50 mg Valsartan (Diovan) 160 mg PO DAILY [facility] Last Admin: 10/07/16 08:38 Dose: 160 mg - Labs Labs: 10/07/16 06:30 10/07/16 06:30 PT 12.5 Seconds (9.8-13.1) 10/07/16 06:30 INR 1.2 (0.9-1.2) 10/07/16 06:30 APTT 29.2 Seconds (25.6-37.1) 10/03/16 17:20 Assessment and Plan - Assessment and Plan (Free Text) Plan: - Regular diet - Will follow
[2016-10-07] MEDS: Lactated Ringer's 1,000 ML IV SCH ×2 (14:39→21:13)
[2016-10-08] MEDS: Lactated Ringer's 1,000 ML IV SCH ×3 (03:33→22:36)
[2016-10-08 08:00] LABS: HEMATOCRIT 37.1 % (35.0-51.0); MEAN CELL VOLUME 81.9 fl (80.0-94.0); MEAN CORPUSCULAR HEMOGLOBIN 26.8 pg (27.0-31.0); MEAN CORPUSCULAR HGB CONC 32.7 g/dL (33.0-37.0); RED CELL DISTRIBUTION WIDTH 14.7 % (11.5-14.5); WHITE BLOOD COUNT 3.2 K/uL (4.8-10.8)
--- NOTE | 2016-10-08 08:13 | CP.PCM.PN ---
<Reagan Sanders - Last Filed: 10/08/16 12:32> Subjective - Date & Time of Evaluation Date of Evaluation: 10/08/16 Time of Evaluation: 07:15 - Subjective Subjective: General Surgery Progress Note for Dr. Watson Patient seen and examined at bedside. No acute event overnight. Patient states pain is controlled. He is tolerating tolerating diet. Patient ambulating and voiding wihtout difficulty. Denies fever/chills, cp, sob, n/v/d. Objective - Vital Signs/Intake and Output Vital Signs (last 24 hours): Temp Pulse Resp BP Pulse Ox 97.3 F L 58 L 20 160/71 H 97 10/08/16 00:55 10/08/16 00:55 10/08/16 00:55 10/08/16 00:55 10/08/16 00:55 Intake and Output: 10/08/16 10/08/16 06:59 18:59 Intake Total 1400 Output Total 1280 Balance 120 - Medications Medications: Current Medications Acetaminophen (Tylenol 650 Mg Supp) 650 mg [place] Q6 PRN PRN Reason: Fever >100.4 F Last Admin: 10/04/16 03:20 Dose: 650 mg Alprazolam (Xanax) 0.25 mg PO Q12 PRN PRN Reason: Anxiety Stop: 10/13/16 17:39 Last Admin: 10/07/16 21:46 Dose: 0.25 mg Amlodipine Besylate (Norvasc) 10 mg PO DAILY [facility] [place] Last Admin: 10/07/16 08:40 Dose: 10 mg Dextrose (Dextrose 50% Inj) 0 ml IV STAT PRN; Protocol PRN Reason: Hyglycemia Protocol Dextrose (Glutose 15) 0 gm PO ONCE PRN; Protocol PRN Reason: Hypoglycemia Protocol Enoxaparin Sodium (Lovenox) 40 mg SC DAILY [facility] PRN Reason: Protocol Last Admin: 10/07/16 08:39 Dose: 40 mg Famotidine (Pepcid) 20 mg IVP DAILY [facility] [place] Last Admin: 10/07/16 08:45 Dose: 20 mg Glucagon (Glucagen Diagnostic Kit) 0 mg IM STAT PRN; Protocol PRN Reason: Hypoglycemia Protocol Guaifenesin/Dextromethorphan (Robitussin Dm) 10 ml PO Q4 PRN PRN Reason: Cough Hydromorphone HCl (Dilaudid) 0.5 mg IVP RQ4PRN PRN PRN Reason: Pain, severe (8-10) Last Admin: 10/04/16 21:35 Dose: 0.5 mg Meropenem 1 gm/ Sodium (Chloride) 100 mls @ 100 mls/hr IVPB Q8 [facility] Last Admin: 10/08/16 00:00 Dose: 100 mls/hr Lactated Ringer's (Lactated Ringer's) 1,000 mls @ 100 mls/hr IV .Q10H [facility] Last Admin: 10/08/16 03:33 Dose: 100 mls/hr Insulin Human Regular (Humulin R) 0 units SC ACHS [facility] PRN Reason: Protocol Last Admin: 10/07/16 21:47 Dose: Not Given Metronidazole (Flagyl) 500 mg PO Q8 [facility] Last Admin: 10/08/16 00:02 Dose: 500 mg Ondansetron HCl (Zofran Inj) 4 mg IVP Q6 PRN PRN Reason: Nausea/Vomiting Tramadol HCl (Ultram) 50 mg PO Q6 PRN PRN Reason: Pain, moderate (4-7) Last Admin: 10/08/16 04:23 Dose: 50 mg Valsartan (Diovan) 160 mg PO DAILY [facility] [place] Last Admin: 10/07/16 08:38 Dose: 160 mg - Labs Labs: 10/07/16 06:30 10/07/16 06:30 PT 12.5 Seconds (9.8-13.1) 10/07/16 06:30 INR 1.2 (0.9-1.2) 10/07/16 06:30 APTT 29.2 Seconds (25.6-37.1) 10/03/16 17:20 - Constitutional Appears: Non-toxic, No Acute Distress - Head Exam Head Exam: ATRAUMATIC, NORMOCEPHALIC - Eye Exam Eye Exam: Normal appearance - ENT Exam ENT Exam: Mucous Membranes Moist - Neck Exam Neck Exam: Full ROM - Respiratory Exam Respiratory Exam: NORMAL BREATHING PATTERN - Cardiovascular Exam Cardiovascular Exam: REGULAR RHYTHM - GI/Abdominal Exam GI & Abdominal Exam: Soft. absent: Distended, Firm, Guarding, Tenderness, Rebound - Extremities Exam Extremities Exam: absent: Calf Tenderness - Back Exam Back Exam: absent: CVA tenderness (L), CVA tenderness (R) - Neurological Exam Neurological Exam: Alert, Awake, Oriented x3 - Psychiatric Exam Psychiatric exam: Normal Affect, Normal Mood - Skin Skin Exam: Dry, Intact, Normal Color, Warm Assessment and Plan - Assessment and Plan (Free Text) Plan: 86 M with gallstone pancreatitis going for cholecystectomy -Continue liquid diet -NPO after midnight tonight -Tbili and LFts trending down -Medical optimization, Cleared by Cardiology -Plan for cholecystectomy tomorrow -Will DW Dr. Walter Sanders PGY1 <Maynor Watson - Last Filed: 10/08/16 14:09> Subjective - Date & Time of Evaluation Time of Evaluation: 13:40 - Subjective Subjective: Patient was seen and examined at the bedside. Agree with resident's note above. Objective - Vital Signs/Intake and Output Vital Signs (last 24 hours): Temp Pulse Resp BP Pulse Ox 97.4 F L 68 20 132/69 97 10/08/16 08:56 10/08/16 10:01 10/08/16 08:56 10/08/16 10:01 10/08/16 08:56 Intake and Output: 10/08/16 10/08/16 06:59 18:59 Intake Total 1400 Output Total 1280 Balance 120 - Medications Medications: Current Medications Acetaminophen (Tylenol 650 Mg Supp) 650 mg [place] Q6 PRN PRN Reason: Fever >100.4 F Last Admin: 10/04/16 03:20 Dose: 650 mg Acetaminophen (Tylenol 325mg Tab) 650 mg PO Q6 PRN PRN Reason: Headache Last Admin: 10/08/16 13:35 Dose: 650 mg Alprazolam (Xanax) 0.25 mg PO Q12 PRN PRN Reason: Anxiety Stop: 10/13/16 17:39 Last Admin: 10/07/16 21:46 Dose: 0.25 mg Amlodipine Besylate (Norvasc) 10 mg PO DAILY [facility] Last Admin: 10/08/16 10:01 Dose: 10 mg Dextrose (Dextrose 50% Inj) 0 ml IV STAT PRN; Protocol PRN Reason: Hyglycemia Protocol Dextrose (Glutose 15) 0 gm PO ONCE PRN; Protocol PRN Reason: Hypoglycemia Protocol Famotidine (Pepcid) 20 mg IVP DAILY [facility] Last Admin: 10/08/16 10:02 Dose: 20 mg Glucagon (Glucagen Diagnostic Kit) 0 mg IM STAT PRN; Protocol PRN Reason: Hypoglycemia Protocol Guaifenesin/Dextromethorphan (Robitussin Dm) 10 ml PO Q4 PRN PRN Reason: Cough Hydromorphone HCl (Dilaudid) 0.5 mg IVP RQ4PRN PRN PRN Reason: Pain, severe (8-10) Last Admin: 10/04/16 21:35 Dose: 0.5 mg Meropenem 1 gm/ Sodium (Chloride) 100 mls @ 100 mls/hr IVPB Q8 [facility] Last Admin: 10/08/16 10:00 Dose: 100 mls/hr Lactated Ringer's (Lactated Ringer's) 1,000 mls @ 100 mls/hr IV .Q10H [facility] [place] Last Admin: 10/08/16 10:14 Dose: Not Given Insulin Human Regular (Humulin R) 0 units SC ACHS [facility] PRN Reason: Protocol Last Admin: 10/08/16 13:34 Dose: Not Given Metronidazole (Flagyl) 500 mg PO Q8 [facility] [place] Last Admin: 10/08/16 10:03 Dose: 500 mg Ondansetron HCl (Zofran Inj) 4 mg IVP Q6 PRN PRN Reason: Nausea/Vomiting Tramadol HCl (Ultram) 50 mg PO Q6 PRN PRN Reason: Pain, moderate (4-7) Last Admin: 10/08/16 10:16 Dose: 50 mg Valsartan (Diovan) 160 mg PO DAILY [facility] [place] Last Admin: 10/08/16 08:58 Dose: 160 mg - Labs Labs: 10/08/16 06:00 10/08/16 06:00 PT 12.5 Seconds (9.8-13.1) 10/07/16 06:30 INR 1.2 (0.9-1.2) 10/07/16 06:30 APTT 29.2 Seconds (25.6-37.1) 10/03/16 17:20 Assessment and Plan - Assessment and Plan (Free Text) Plan: - regular diet - NPO after midnight - To OR tomorrow for cholecystectomy
[2016-10-08 08:27] LABS: ALB/GLOB RATIO 1.2 (1.0-2.1); ALKALINE PHOSPHATASE 124 U/L (38-126); ALT/SGPT 113 U/L (21-72); AST/SGOT 64 U/L (17-59); BILIRUBIN,TOTAL 0.6 mg/dl (0.2-1.3); BLOOD UREA NITROGEN 14 mg/dl (9-20); CALCIUM 8.4 mg/dL (8.4-10.2); CARBON DIOXIDE 27 mmol/L (22-30); CHLORIDE 104 mmol/L (98-107); GFR AFRICAN-AMERICAN > 60; GLUCOSE,RANDOM 107 mg/dL (75-110); SODIUM 137 mmol/l (132-148); TOTAL PROTEIN 5.9 G/DL (6.3-8.2)
[2016-10-08] MEDS: Enoxaparin 40 mg Syringe SC SCH (09:04)
[2016-10-08] MEDS: Insulin Regular 100 units/ml SC SCH ×4 (09:58→23:00)
[2016-10-08] MEDS: Meropenem 1 GM in Sodium Chloride 0.9% 100 ML IVPB SCH ×3 (10:00→16:21)
--- NOTE | 2016-10-08 18:25 | CP.PCM.PN ---
Subjective - Date & Time of Evaluation Date of Evaluation: 10/08/16 Time of Evaluation: 11:00 - Subjective Subjective: Patient seen and examined bedside. feeling better but anxious. Complains of pressure like headache . Was not able to sleep last night. Hemodynamically stable, afebrile. Denies abdominal pain . Tolerating PO intake Objective - Vital Signs/Intake and Output Vital Signs (last 24 hours): Temp Pulse Resp BP Pulse Ox 97.6 F 58 L 18 117/62 97 10/08/16 15:50 10/08/16 15:50 10/08/16 15:50 10/08/16 15:50 10/08/16 15:50 Intake and Output: 10/08/16 10/08/16 06:59 18:59 Intake Total 1400 Output Total 1280 Balance 120 - Medications Medications: Current Medications Acetaminophen (Tylenol 650 Mg Supp) 650 mg SC Q6 PRN PRN Reason: Fever >100.4 F Last Admin: 10/04/16 03:20 Dose: 650 mg Acetaminophen (Tylenol 325mg Tab) 650 mg PO Q6 PRN PRN Reason: Headache Last Admin: 10/08/16 13:35 Dose: 650 mg Alprazolam (Xanax) 0.25 mg PO Q12 PRN PRN Reason: Anxiety Stop: 10/13/16 17:39 Last Admin: 10/07/16 21:46 Dose: 0.25 mg Amlodipine Besylate (Norvasc) 10 mg PO DAILY [facility] Last Admin: 10/08/16 10:01 Dose: 10 mg Dextrose (Dextrose 50% Inj) 0 ml IV STAT PRN; Protocol PRN Reason: Hyglycemia Protocol Dextrose (Glutose 15) 0 gm PO ONCE PRN; Protocol PRN Reason: Hypoglycemia Protocol Famotidine (Pepcid) 20 mg IVP DAILY [facility] Last Admin: 10/08/16 10:02 Dose: 20 mg Glucagon (Glucagen Diagnostic Kit) 0 mg IM STAT PRN; Protocol PRN Reason: Hypoglycemia Protocol Guaifenesin/Dextromethorphan (Robitussin Dm) 10 ml PO Q4 PRN PRN Reason: Cough Hydromorphone HCl (Dilaudid) 0.5 mg IVP RQ4PRN PRN PRN Reason: Pain, severe (8-10) Last Admin: 10/04/16 21:35 Dose: 0.5 mg Meropenem 1 gm/ Sodium (Chloride) 100 mls @ 100 mls/hr IVPB Q8 [facility] Last Admin: 10/08/16 16:21 Dose: 100 mls/hr Lactated Ringer's (Lactated Ringer's) 1,000 mls @ 100 mls/hr IV .Q10H [facility] Last Admin: 10/08/16 10:14 Dose: Not Given Insulin Human Regular (Humulin R) 0 units SC ACHS SUDHA PRN Reason: Protocol Last Admin: 10/08/16 16:24 Dose: Not Given Metronidazole (Flagyl) 500 mg PO Q8 [facility] Last Admin: 10/08/16 16:23 Dose: 500 mg Ondansetron HCl (Zofran Inj) 4 mg IVP Q6 PRN PRN Reason: Nausea/Vomiting Tramadol HCl (Ultram) 50 mg PO Q6 PRN PRN Reason: Pain, moderate (4-7) Last Admin: 10/08/16 10:16 Dose: 50 mg Valsartan (Diovan) 160 mg PO DAILY [facility] Last Admin: 10/08/16 08:58 Dose: 160 mg - Labs Labs: 10/08/16 06:00 10/08/16 06:00 PT 12.5 Seconds (9.8-13.1) 10/07/16 06:30 INR 1.2 (0.9-1.2) 10/07/16 06:30 APTT 29.2 Seconds (25.6-37.1) 10/03/16 17:20 - Constitutional Appears: Non-toxic, No Acute Distress - Head Exam Head Exam: ATRAUMATIC, NORMAL INSPECTION, NORMOCEPHALIC - Eye Exam Eye Exam: EOMI, Normal appearance, PERRL Pupil Exam: NORMAL ACCOMODATION - ENT Exam ENT Exam: Mucous Membranes Moist, Normal Exam - Neck Exam Neck Exam: Full ROM, Normal Inspection - Respiratory Exam Respiratory Exam: Clear to Ausculation Bilateral, NORMAL BREATHING PATTERN. absent: Rales, Rhonchi, Wheezes - Cardiovascular Exam Cardiovascular Exam: REGULAR RHYTHM, RRR, +S1, +S2. absent: JVD - GI/Abdominal Exam GI & Abdominal Exam: Soft, Normal Bowel Sounds. absent: Distended, Guarding, Tenderness, Rebound - Rectal Exam Rectal Exam: Deferred - Extremities Exam Extremities Exam: Full ROM, Normal Capillary Refill, Normal Inspection. absent : Calf Tenderness, Pedal Edema - Back Exam Back Exam: NORMAL INSPECTION - Neurological Exam Neurological Exam: Alert, Awake, CN II-XII Intact, Oriented x3 - Psychiatric Exam Psychiatric exam: Normal Affect, Normal Mood - Skin Skin Exam: Dry, Intact, Normal Color, Warm Assessment and Plan - Assessment and Plan (Free Text) Assessment: 86 y/o gent with known Hx of HTN, DM, Carotid Stenosis, BPH came in bec of abd pain. Found to have Elevated lipase, abn LFT, elevated WBC ct . CT of the abdomen : Prominence of the pancreatic head with adjacent inflammatory change and mild ductal dilatation, findings suggest pancreatitis , underlying neoplasm cannot be excluded; gallstone; no renal or ureteral stones or hydronephrosis; no CT findings of appendicitis or diverticulitis Pt was started on IVF hydration, Pain mgt and IV antibiotics. Surgery consulted - plan for Lap Rolanda on Sunday 1. Sepsis sec to Cholecystitis, Pancreatitis Acute, improving Elevated WBC to 22k, elevated lactate level - now normal started initially on IV cefepime and Flagyl - Cefepime changed to meropenem by ID ID consulted - Dr Manzano Blood c/s: neg so far IVF hydration Monitored in ICU initially , now transferred to Med Surg Plan for Lap Rolanda Sunday 2. Acute gallstone pancreatitis Acute Surgery consulted GI consult- discussed case with Dr Ramirez MRCP showed no Choledocholithiasis,so NO ERCP nor EUS necessary continue IVF hydration,pain mgt cont IV abx Cardio consulted for cardiac optimization ECHO normal EF, No significant Carotid stenosis on US - cleared by Dr Hernandez Lipase now normal LFTs trending down Plan for Lap Rolanda on Sunday 3. Cholecystitis, acute Acute Surgery consult as above cont IV Meropenem 4. DM type 2 (diabetes mellitus, type 2) Chronic Hold oral hypoglycemics accucheck with coverage 5.HTN (hypertension) Chronic started Diovan ( pt on Olmesartan at home ) added Norvasc 6. Carotid Stenosis , history ECHO- normal EF, wall motion Carotid Sono- no significant stenosis cont statin as outpt 7. Thrombocytopenia prob sec to Infection/Sepsis, unlikely HIT as Platelet dropped before Lovenox started monitor Plt- improved today 8. Left Middle Finger Swelling, dry ulcer /Eschar ( POA) accdg to pt - this is chronic on and off - was placed on Clinda by his PMD prior to this admission ID consulted MRI of Finger - negative Osteomyelitis , may be cellulitis pt is on abx (8) DVT prophylaxis Acute Lovenox- close monitoring as Plt 113
[2016-10-09] MEDS: Meropenem 1 GM in Sodium Chloride 0.9% 100 ML IVPB SCH ×2 (00:01→08:24)
[2016-10-09] MEDS: Lactated Ringer's 1,000 ML IV SCH ×3 (04:53→16:22)
[2016-10-09 06:48] LABS: HEMATOCRIT 37.8 % (35.0-51.0); MEAN CELL VOLUME 81.4 fl (80.0-94.0); MEAN CORPUSCULAR HEMOGLOBIN 26.7 pg (27.0-31.0); MEAN CORPUSCULAR HGB CONC 32.8 g/dL (33.0-37.0); RED CELL DISTRIBUTION WIDTH 14.7 % (11.5-14.5); WHITE BLOOD COUNT 2.9 K/uL (4.8-10.8)
[2016-10-09 06:55] LABS: ALB/GLOB RATIO 1.2 (1.0-2.1); ALKALINE PHOSPHATASE 138 U/L (38-126); ALT/SGPT 120 U/L (21-72); AST/SGOT 110 U/L (17-59); BILIRUBIN,TOTAL 0.6 mg/dl (0.2-1.3); BLOOD UREA NITROGEN 12 mg/dl (9-20); CALCIUM 8.8 mg/dL (8.4-10.2); CARBON DIOXIDE 27 mmol/L (22-30); CHLORIDE 105 mmol/L (98-107); GFR AFRICAN-AMERICAN > 60; GLUCOSE,RANDOM 98 mg/dL (75-110); POTASSIUM 4.3 MMOL/L (3.6-5.0); SODIUM 139 mmol/l (132-148); TOTAL PROTEIN 6.1 G/DL (6.3-8.2)
--- NOTE | 2016-10-09 07:52 | CP.PCM.PN ---
Subjective - Date & Time of Evaluation Date of Evaluation: 10/09/17 Time of Evaluation: 09:30 - Subjective Subjective: Patient seen and examined bedside Feeling well. NPO for Or today. Very anxious . enies any hest pain , SOB,abdominal pain. Hemodynamically stable, afebrile. Objective - Vital Signs/Intake and Output Vital Signs (last 24 hours): Temp Pulse Resp BP Pulse Ox 97.3 F L 76 20 169/72 H 97 10/09/16 07:29 10/09/16 07:29 10/09/16 07:29 10/09/16 07:29 10/09/16 07:29 Intake and Output: 10/09/16 10/09/16 06:59 18:59 Intake Total 1780 Output Total 1750 Balance 30 - Medications Medications: Current Medications Acetaminophen (Tylenol 650 Mg Supp) 650 mg [place] Q6 PRN PRN Reason: Fever >100.4 F Last Admin: 10/04/16 03:20 Dose: 650 mg Acetaminophen (Tylenol 325mg Tab) 650 mg PO Q6 PRN PRN Reason: Headache Last Admin: 10/08/16 20:43 Dose: 650 mg Alprazolam (Xanax) 0.25 mg PO Q12 PRN PRN Reason: Anxiety Stop: 10/13/16 17:39 Last Admin: 10/08/16 22:35 Dose: 0.25 mg Amlodipine Besylate (Norvasc) 10 mg PO DAILY [facility] Last Admin: 10/08/16 10:01 Dose: 10 mg Dextrose (Dextrose 50% Inj) 0 ml IV STAT PRN; Protocol PRN Reason: Hyglycemia Protocol Dextrose (Glutose 15) 0 gm PO ONCE PRN; Protocol PRN Reason: Hypoglycemia Protocol Famotidine (Pepcid) 20 mg IVP DAILY [facility] Last Admin: 10/08/16 10:02 Dose: 20 mg Glucagon (Glucagen Diagnostic Kit) 0 mg IM STAT PRN; Protocol PRN Reason: Hypoglycemia Protocol Guaifenesin/Dextromethorphan (Robitussin Dm) 10 ml PO Q4 PRN PRN Reason: Cough Hydromorphone HCl (Dilaudid) 0.5 mg IVP RQ4PRN PRN PRN Reason: Pain, severe (8-10) Last Admin: 10/04/16 21:35 Dose: 0.5 mg Meropenem 1 gm/ Sodium (Chloride) 100 mls @ 100 mls/hr IVPB Q8 [facility] Last Admin: 10/09/16 00:01 Dose: 100 mls/hr Lactated Ringer's (Lactated Ringer's) 1,000 mls @ 100 mls/hr IV .Q10H [facility] Last Admin: 10/09/16 04:53 Dose: Not Given Insulin Human Regular (Humulin R) 0 units SC ACHS SUDHA PRN Reason: Protocol Last Admin: 10/08/16 23:00 Dose: Not Given Metronidazole (Flagyl) 500 mg PO Q8 [facility] Last Admin: 10/09/16 00:00 Dose: 500 mg Ondansetron HCl (Zofran Inj) 4 mg IVP Q6 PRN PRN Reason: Nausea/Vomiting Tramadol HCl (Ultram) 50 mg PO Q6 PRN PRN Reason: Pain, moderate (4-7) Last Admin: 10/08/16 10:16 Dose: 50 mg Valsartan (Diovan) 160 mg PO DAILY [facility] Last Admin: 10/08/16 08:58 Dose: 160 mg - Labs Labs: 10/09/16 05:20 10/09/16 05:20 PT 12.5 Seconds (9.8-13.1) 10/07/16 06:30 INR 1.2 (0.9-1.2) 10/07/16 06:30 APTT 29.2 Seconds (25.6-37.1) 10/03/16 17:20 - Constitutional Appears: Non-toxic, No Acute Distress - Head Exam Head Exam: ATRAUMATIC, NORMAL INSPECTION, NORMOCEPHALIC - Eye Exam Eye Exam: EOMI, Normal appearance, PERRL - ENT Exam ENT Exam: Mucous Membranes Moist, Normal Exam - Neck Exam Neck Exam: Full ROM, Normal Inspection - Respiratory Exam Respiratory Exam: Clear to Ausculation Bilateral, NORMAL BREATHING PATTERN. absent: Rales, Rhonchi, Wheezes - Cardiovascular Exam Cardiovascular Exam: REGULAR RHYTHM, RRR, +S1, +S2. absent: JVD - GI/Abdominal Exam GI & Abdominal Exam: Soft, Normal Bowel Sounds. absent: Distended, Guarding, Tenderness, Rebound - Rectal Exam Rectal Exam: Deferred - Extremities Exam Extremities Exam: Full ROM, Normal Inspection - Back Exam Back Exam: NORMAL INSPECTION - Neurological Exam Neurological Exam: Alert, Awake, CN II-XII Intact, Oriented x3 - Psychiatric Exam Psychiatric exam: Normal Affect, Normal Mood - Skin Skin Exam: Dry, Intact, Normal Color, Warm Assessment and Plan - Assessment and Plan (Free Text) Assessment: 86 y/o gent with known Hx of HTN, DM, Carotid Stenosis, BPH came in bec of abd pain. Found to have Elevated lipase, abn LFT, elevated WBC ct . CT of the abdomen : Prominence of the pancreatic head with adjacent inflammatory change and mild ductal dilatation, findings suggest pancreatitis , underlying neoplasm cannot be excluded; gallstone; no renal or ureteral stones or hydronephrosis; no CT findings of appendicitis or diverticulitis Pt was started on IVF hydration, Pain mgt and IV antibiotics. Surgery consulted. For Lap Rolanda today 1. Sepsis sec to Cholecystitis, Pancreatitis Acute, improving Elevated WBC to 22k, elevated lactate level on qadmission- now normal started initially on IV cefepime and Flagyl - Cefepime changed to meropenem by ID ID consulted - Dr Manzano Blood c/s: neg so far IVF hydration Monitored in ICU initially , now transferred to Med Surg For Lap Rolanda today 2. Acute gallstone pancreatitis-- resolved Acute Surgery consulted GI consult- discussed case with Dr Ramirez MRCP showed no Choledocholithiasis,so NO ERCP nor EUS necessary continue IVF hydration,pain mgt cont IV abx Cardio consulted for cardiac optimization ECHO normal EF, No significant Carotid stenosis on US - cleared by Dr Hernandez Lipase now normal LFTs trending down for lap cholecystectomy today 3. Cholecystitis, acute Acute Surgery consulted as above cont IV Meropenem 4. DM type 2 (diabetes mellitus, type 2) Chronic , controlled Hold oral hypoglycemics accucheck with coverage 5.HTN (hypertension) Chronic started Diovan ( pt on Olmesartan at home )and added Norvasc 6. Carotid Stenosis , history-- ruled out ECHO- normal EF, wall motion Carotid Sono- no significant stenosis cont statin as outpt 7. Thrombocytopenia prob sec to Infection/Sepsis, unlikely HIT as Platelet dropped before Lovenox started monitor Plt- improved today 134 k 8. Left Middle Finger Swelling, dry ulcer /Eschar ( POA) accdg to pt - this is chronic on and off - was placed on Clinda by his PMD prior to this admission ID consulted MRI of Finger - negative Osteomyelitis , may be cellulitis pt is on abx (8) DVT prophylaxis Acute Lovenox- close monitoring as Plt 134
[2016-10-09] MEDS: Insulin Regular 100 units/ml SC SCH ×4 (08:28→23:13)
[2016-10-09] MEDS ORDERED: Midazolam 2 MG/2 ML VIAL ONE ×2 (09:06→12:00)
[2016-10-09] MEDS ORDERED: Rocuronium 10 mg/ml (5 ml) ONE (09:06)
[2016-10-09] MEDS ORDERED: Lidocaine 4% (Laryng-O-Jet) Kit MM ONE (09:06)
[2016-10-09] MEDS ORDERED: Etomidate 20 mg/10ml Inj IV ONE (09:12)
[2016-10-09] MEDS ORDERED: Lactated Ringer's 300 ML IV ONE (09:17)
[2016-10-09] MEDS ORDERED: Bupivacaine HCl 0.5% PF (30 ml) Inj ONE (09:42)
[2016-10-09] MEDS ORDERED: Labetalol 5mg/ml (4ml) ONE (09:42)
[2016-10-09] MEDS ORDERED: Lactated Ringer's 1,000 ML IV ONE (09:47)
[2016-10-09] MEDS ORDERED: Neostigmine Methylsulfate 3mg/3ml Syringe IV ONE (09:55)
[2016-10-09] MEDS ORDERED: Oxycodone/Acetaminophen 5/325 mg Tab PO PRN (10:25)
--- NOTE | 2016-10-09 10:26 | PCM.SURG1 ---
Surgeon's Initial Post Op Note - Surgeon's Notes Surgeon: Dr. [employer] Supervisor: Miguel Mcknight PGY3, Ned Villanueva PGY2 Type of Anesthesia: General Endo Pre-Operative Diagnosis: Gallstone pancreatitis Operative Findings: cholelithiasis Post-Operative Diagnosis: cholelithiasis Operation Performed: Laparoscopic cholecystitis Specimen/Specimens Removed: gallbladder Estimated Blood Loss: EBL {In ML}: 10 Blood Products Given: N/A Drains Used: No Drains Post-Op Condition: Good Date of Surgery/Procedure: 10/09/16 Time of Surgery/Procedure: 10:26
[2016-10-09] MEDS ORDERED: Midazolam 2 MG/2 ML VIAL IV STA (12:00)
[2016-10-09] MEDS ORDERED: HYDROmorphone 0.5 mg/0.5 ml ISec IVP PRN (12:46)
--- NOTE | 2016-10-09 13:08 | CP.PCM.PN ---
Subjective - Date & Time of Evaluation Date of Evaluation: 10/09/16 Time of Evaluation: 13:08 - Subjective Subjective: ID Note- Pt. seen and examined today. He is s/p cholecystectomy today and still a bit drowsy from the anesthesia but awake. his family is at his bedside. Objective - Vital Signs/Intake and Output Vital Signs (last 24 hours): Temp Pulse Resp BP Pulse Ox 97.0 F L 75 18 141/62 98 10/09/16 10:40 10/09/16 12:10 10/09/16 12:10 10/09/16 12:10 10/09/16 12:10 Intake and Output: 10/09/16 10/09/16 06:59 18:59 Intake Total 1780 700 Output Total 1750 Balance 30 700 - Medications Medications: Current Medications Acetaminophen (Tylenol 650 Mg Supp) 650 mg [place] Q6 PRN PRN Reason: Fever >100.4 F Last Admin: 10/04/16 03:20 Dose: 650 mg Acetaminophen (Tylenol 325mg Tab) 650 mg PO Q6 PRN PRN Reason: Headache Last Admin: 10/08/16 20:43 Dose: 650 mg Alprazolam (Xanax) 0.25 mg PO Q12 PRN PRN Reason: Anxiety Stop: 10/13/16 17:39 Last Admin: 10/08/16 22:35 Dose: 0.25 mg Amlodipine Besylate (Norvasc) 10 mg PO DAILY [facility] Last Admin: 10/09/16 08:27 Dose: 10 mg Dextrose (Dextrose 50% Inj) 0 ml IV STAT PRN; Protocol PRN Reason: Hyglycemia Protocol Dextrose (Glutose 15) 0 gm PO ONCE PRN; Protocol PRN Reason: Hypoglycemia Protocol Famotidine (Pepcid) 20 mg IVP DAILY [facility] Last Admin: 10/09/16 08:27 Dose: 20 mg Glucagon (Glucagen Diagnostic Kit) 0 mg IM STAT PRN; Protocol PRN Reason: Hypoglycemia Protocol Guaifenesin/Dextromethorphan (Robitussin Dm) 10 ml PO Q4 PRN PRN Reason: Cough Hydromorphone HCl (Dilaudid) 1 mg IVP Q3H PRN PRN Reason: Pain, severe (8-10) Meropenem 1 gm/ Sodium (Chloride) 100 mls @ 100 mls/hr IVPB Q8 [facility] Last Admin: 10/09/16 08:24 Dose: 100 mls/hr Lactated Ringer's (Lactated Ringer's) 1,000 mls @ 100 mls/hr IV .Q10H [facility] Last Admin: 10/09/16 04:53 Dose: Not Given Insulin Human Regular (Humulin R) 0 units SC ACHS SUDHA PRN Reason: Protocol Last Admin: 10/09/16 08:28 Dose: Not Given Metronidazole (Flagyl) 500 mg PO Q8 [facility] Last Admin: 10/09/16 08:28 Dose: Not Given Midazolam HCl (Versed Inj) 1 mg IV ONCE STA Stop: 10/09/16 12:01 Last Admin: 10/09/16 12:00 Dose: 1 mg Ondansetron HCl (Zofran Inj) 4 mg IVP Q6 PRN PRN Reason: Nausea/Vomiting Oxycodone/Acetaminophen (Percocet 5/325 Mg Tab) 1 tab PO Q4 PRN PRN Reason: Pain, moderate (4-7) Stop: 10/12/16 10:26 Tramadol HCl (Ultram) 50 mg PO Q6 PRN PRN Reason: Pain, moderate (4-7) Last Admin: 10/08/16 10:16 Dose: 50 mg Valsartan (Diovan) 160 mg PO DAILY [facility] Last Admin: 10/09/16 08:28 Dose: 160 mg - Labs Labs: 0 - Additional Findings Additional findings: Appears: No Acute Distress - Head Exam Head Exam: ATRAUMATIC - Eye Exam Eye Exam: EOMI, PERRL - ENT Exam ENT Exam: Normal Oropharynx - Neck Exam Neck exam: Positive for: Full Rom - Respiratory Exam Respiratory Exam: Clear to Auscultation Bilateral, NORMAL BREATHING PATTERN - Cardiovascular Exam Cardiovascular Exam: RRR, +S1, +S2 - GI/Abdominal Exam GI & Abdominal Exam: Normal Bowel Sounds, Soft Additional comments: No distention no guarding No rebound No CVA tenderness B/l - Extremities Exam Additional comments: left middle dip phalanx region with small ulcer with eschar formation, no malodor, no active discharge no ulcers in the feet b/l no edema b/l LE - Neurological Exam Neurological exam: Alert, Oriented x 3 Laboratory Results - last 72 hr 10/06/16 10/07/16 10/07/16 20:56 05:48 06:30 WBC 3.5 L RBC 4.89 Hgb 13.1 Hct 39.7 MCV 81.2 MCH 26.7 L MCHC 32.9 L RDW 14.6 H Plt Count 126 L PT INR Sodium Potassium Chloride Carbon Dioxide Anion Gap BUN Creatinine Est GFR ( Amer) Est GFR (Non-Af Amer) POC Glucose (mg/dL) 102 104 Random Glucose Calcium Total Bilirubin AST ALT Alkaline Phosphatase Total Protein Albumin Globulin Albumin/Globulin Ratio Blood Type Blood Type Confirm Antibody Screen BBK History Checked 10/07/16 10/07/16 10/07/16 06:30 06:30 10:49 WBC RBC Hgb Hct MCV MCH MCHC RDW Plt Count PT 12.5 INR 1.2 Sodium 137 Potassium 3.9 Chloride 104 Carbon Dioxide 22 Anion Gap 15 BUN 15 Creatinine 0.8 Est GFR ( Amer) > 60 Est GFR (Non-Af Amer) > 60 POC Glucose (mg/dL) 160 H Random Glucose 101 Calcium 8.5 Total Bilirubin 0.9 AST 68 H D ALT 137 H Alkaline Phosphatase 139 H Total Protein 6.6 Albumin 3.5 Globulin 3.1 Albumin/Globulin Ratio 1.1 Blood Type Blood Type Confirm Antibody Screen BBK History Checked 10/07/16 10/07/16 10/07/16 13:00 16:01 21:46 WBC RBC Hgb Hct MCV MCH MCHC RDW Plt Count PT INR Sodium Potassium Chloride Carbon Dioxide Anion Gap BUN Creatinine Est GFR ( Amer) Est GFR (Non-Af Amer) POC Glucose (mg/dL) 116 H 132 H 123 H Random Glucose Calcium Total Bilirubin AST ALT Alkaline Phosphatase Total Protein Albumin Globulin Albumin/Globulin Ratio Blood Type Blood Type Confirm Antibody Screen BBK History Checked 10/08/16 10/08/16 10/08/16 05:49 06:00 06:00 WBC 3.2 L RBC 4.54 Hgb 12.2 Hct 37.1 MCV 81.9 MCH 26.8 L MCHC 32.7 L RDW 14.7 H Plt Count 121 L PT INR Sodium 137 Potassium 4.0 Chloride 104 Carbon Dioxide 27 Anion Gap 10 BUN 14 Creatinine 0.8 Est GFR ( Amer) > 60 Est GFR (Non-Af Amer) > 60 POC Glucose (mg/dL) 111 H Random Glucose 107 Calcium 8.4 Total Bilirubin 0.6 AST 64 H ALT 113 H Alkaline Phosphatase 124 Total Protein 5.9 L Albumin 3.2 L Globulin 2.7 Albumin/Globulin Ratio 1.2 Blood Type Blood Type Confirm Antibody Screen BBK History Checked 10/08/16 10/08/16 10/08/16 11:11 16:18 21:07 WBC RBC Hgb Hct MCV MCH MCHC RDW Plt Count PT INR Sodium Potassium Chloride Carbon Dioxide Anion Gap BUN Creatinine Est GFR ( Amer) Est GFR (Non-Af Amer) POC Glucose (mg/dL) 118 H 136 H 112 H Random Glucose Calcium Total Bilirubin AST ALT Alkaline Phosphatase Total Protein Albumin Globulin Albumin/Globulin Ratio Blood Type Blood Type Confirm Antibody Screen BBK History Checked 10/09/16 10/09/16 10/09/16 05:20 05:20 05:20 WBC 2.9 L RBC 4.64 Hgb 12.4 Hct 37.8 MCV 81.4 MCH 26.7 L MCHC 32.8 L RDW 14.7 H Plt Count 134 PT INR Sodium 139 Potassium 4.3 Chloride 105 Carbon Dioxide 27 Anion Gap 11 BUN 12 Creatinine 0.8 Est GFR ( Amer) > 60 Est GFR (Non-Af Amer) > 60 POC Glucose (mg/dL) Random Glucose 98 Calcium 8.8 Total Bilirubin 0.6 AST 110 H D ALT 120 H Alkaline Phosphatase 138 H Total Protein 6.1 L Albumin 3.3 L Globulin 2.8 Albumin/Globulin Ratio 1.2 Blood Type O POSITIVE Blood Type Confirm Antibody Screen Negative BBK History Checked No verified bt 10/09/16 10/09/16 10/09/16 05:24 10:49 11:00 WBC RBC Hgb Hct MCV MCH MCHC RDW Plt Count PT INR Sodium Potassium Chloride Carbon Dioxide Anion Gap BUN Creatinine Est GFR ( Amer) Est GFR (Non-Af Amer) POC Glucose (mg/dL) 112 H 126 H Random Glucose Calcium Total Bilirubin AST ALT Alkaline Phosphatase Total Protein Albumin Globulin Albumin/Globulin Ratio Blood Type Blood Type Confirm O POSITIVE Antibody Screen BBK History Checked 10/09/16 15:33 WBC RBC Hgb Hct MCV MCH MCHC RDW Plt Count PT INR Sodium Potassium Chloride Carbon Dioxide Anion Gap BUN Creatinine Est GFR ( Amer) Est GFR (Non-Af Amer) POC Glucose (mg/dL) 130 H Random Glucose Calcium Total Bilirubin AST ALT Alkaline Phosphatase Total Protein Albumin Globulin Albumin/Globulin Ratio Blood Type Blood Type Confirm Antibody Screen BBK History Checked Microbiology 10/03/16 16:45 Blood Blood Culture - Final NO GROWTH AFTER 5 DAYS 10/03/16 16:45 Blood Gram Stain - Final TEST NOT PERFORMED 10/03/16 16:30 Blood Blood Culture - Final NO GROWTH AFTER 5 DAYS 10/03/16 16:30 Blood Gram Stain - Final TEST NOT PERFORMED 10/05/16 08:10 Naris MRSA Culture (Admit) - Final MRSA NOT DETECTED 10/03/16 08:20 Nose MRSA Culture (Admit) - Final MRSA NOT DETECTED 10/03/16 17:20 Urine Urine Culture - Final No Growth (<1,000 CFU/ML) Accession No. : [id number] Patient Name / ID : YADIRA ALFONSO / [id number] Exam Date : 10/06/2016 13:49:10 ( Approved ) Study Comment : Sex / Age : M / 86Y Creator : Michaela Sousa Dictator : Michaela Sousa Director Of Professional Services : Chip Frier : Michaela Sousa Approver2 : Report Date : 10/06/2016 14:46:12 My Comment : PROCEDURE: MRI of the left hand without contrast. HISTORY: Left middle finger swelling r/o Osteomyelitis COMPARISON: No prior similar study available for comparison. TECHNIQUE: Axial coronal and sagittal MRI images of the left hand were obtained without IV contrast administration. FINDINGS: There is no evidence of bone marrow edema or cortical erosion at the middle finger to suggest active/ acute osteomyelitis. Small focal skin and subcutaneous swelling seen adjacent to the proximal interphalangeal joint may represent cellulitis. Otherwise the visualized soft tissue is grossly unremarkable. IMPRESSION: No MRI evidence of osteomyelitis. Small focal skin and subcutaneous swelling seen at the left middle finger may represent cellulitis. No evidence of discrete fluid collection. Assessment and Plan (1) Cholecystitis, acute Status: Acute (2) Acute pancreatitis Status: Acute (3) Leukocytosis Status: Acute (4) Fever Status: Acute - Assessment and Plan (Free Text) Assessment: A/P- 86 year old male with DM II, HTN, hyperlipidemia admitted with abd pain, fever and leukocytosis foudn to have cholecystitis and gallstome pancreatitis. s/p cholecystectomy today. afebrile. leukocytois has resolved and slightly leukopenic now. blood cx- negative x 3 urine cx- negative left middle DIP small escahr ulcer. left finger MRI- no Om as per report, ? underlying cellulitis plan- has completed 7 days of IV meropenem . advise to d/c meropenem today as leukocytosis has resolved, sepsis has resolved. monitor slight leukopenia off meropenem. advise for now start IV cipro for 1-2 days and once he is cleared to eat can be switched to oral. has completed 7 days of metronidazole as well. once pt. is cleared to eat from surgical team can resume Oral metronidazole. as fot he left DIP digit eschar advise to be seen by plastic surgeon for possible debridement of this as outpatient. since there is no OM as per MRI report, advise course of oral abx for this to cover for gram positive skin aristides. advise clindamycin oral for the finger.( can be started as outpatient) all above d/w patient and his son who is at bedside and all their questions were answered and they verbalize full understanding of all above.
[2016-10-09] MEDS: HYDROmorphone 0.5 mg/0.5 ml ISec IVP PRN ×2 (16:20→19:33)
[2016-10-09] MEDS: Ciprofloxacin 200mg/100ml D5W 100 ML IVPB SCH (21:44)
[2016-10-10] MEDS: Lactated Ringer's 1,000 ML IV SCH ×2 (02:17→12:36)
[2016-10-10 04:25] VITALS: RESP 20
[2016-10-10 06:10] LABS: BASO % 0.3 % (0.0-2.0); EOS % 0.6 % (0.0-4.0); HEMATOCRIT 36.8 % (35.0-51.0); LYMPH # 1.2 K/uL (1.0-4.3); MEAN CELL VOLUME 81.5 fl (80.0-94.0); MEAN CORPUSCULAR HEMOGLOBIN 26.6 pg (27.0-31.0); MEAN CORPUSCULAR HGB CONC 32.6 g/dL (33.0-37.0); MEAN PLATELET VOLUME 9.1 fl (7.2-11.7); MONO # 0.9 K/uL (0.0-0.8); NEUT # 5.1 K/uL (1.8-7.0); NEUT % 71.1 % (50.0-75.0); RED CELL DISTRIBUTION WIDTH 14.5 % (11.5-14.5); WHITE BLOOD COUNT 7.2 K/uL (4.8-10.8)
[2016-10-10 06:26] LABS: ALB/GLOB RATIO 1.1 (1.0-2.1); ALKALINE PHOSPHATASE 200 U/L (38-126); ALT/SGPT 155 U/L (21-72); AST/SGOT 166 U/L (17-59); BILIRUBIN,TOTAL 0.7 mg/dl (0.2-1.3); BLOOD UREA NITROGEN 12 mg/dl (9-20); CALCIUM 8.3 mg/dL (8.4-10.2); CARBON DIOXIDE 28 mmol/L (22-30); CHLORIDE 104 mmol/L (98-107); GFR AFRICAN-AMERICAN > 60; GLUCOSE,RANDOM 89 mg/dL (75-110); POTASSIUM 4.1 MMOL/L (3.6-5.0); SODIUM 137 mmol/l (132-148); TOTAL PROTEIN 5.8 G/DL (6.3-8.2)
--- NOTE | 2016-10-10 07:24 | CP.PCM.PN ---
Subjective - Date & Time of Evaluation Date of Evaluation: 10/10/16 Time of Evaluation: 07:20 - Subjective Subjective: Surgery Pt s&e. Underwent lap aixa yesterday. Tolerated it well. Denies F/C/N/V/D/CP/ SOB. Pain controlled. + amb. + void. Tolerating diet Objective - Vital Signs/Intake and Output Vital Signs (last 24 hours): Temp Pulse Resp BP Pulse Ox 98 F 70 20 120/69 98 10/10/16 04:24 10/10/16 04:24 10/10/16 04:24 10/10/16 04:24 10/10/16 04:24 - Medications Medications: Current Medications Acetaminophen (Tylenol 650 Mg Supp) 650 mg MS Q6 PRN PRN Reason: Fever >100.4 F Last Admin: 10/04/16 03:20 Dose: 650 mg Acetaminophen (Tylenol 325mg Tab) 650 mg PO Q6 PRN PRN Reason: Headache Last Admin: 10/08/16 20:43 Dose: 650 mg Alprazolam (Xanax) 0.25 mg PO Q12 PRN PRN Reason: Anxiety Stop: 10/13/16 17:39 Last Admin: 10/08/16 22:35 Dose: 0.25 mg Amlodipine Besylate (Norvasc) 10 mg PO DAILY [facility] Last Admin: 10/09/16 08:27 Dose: 10 mg Dextrose (Dextrose 50% Inj) 0 ml IV STAT PRN; Protocol PRN Reason: Hyglycemia Protocol Dextrose (Glutose 15) 0 gm PO ONCE PRN; Protocol PRN Reason: Hypoglycemia Protocol Famotidine (Pepcid) 20 mg IVP DAILY [facility] Last Admin: 10/09/16 08:27 Dose: 20 mg Glucagon (Glucagen Diagnostic Kit) 0 mg IM STAT PRN; Protocol PRN Reason: Hypoglycemia Protocol Guaifenesin/Dextromethorphan (Robitussin Dm) 10 ml PO Q4 PRN PRN Reason: Cough Hydromorphone HCl (Dilaudid) 0.5 mg IVP Q3H PRN PRN Reason: Pain, severe (8-10) Last Admin: 10/09/16 19:33 Dose: 0.5 mg Lactated Ringer's (Lactated Ringer's) 1,000 mls @ 100 mls/hr IV .Q10H [facility] Last Admin: 10/10/16 02:17 Dose: 100 mls/hr Ciprofloxacin (Cipro 200mg/100ml D5w) 100 mls @ 100 mls/hr IVPB Q12 [facility] Last Admin: 10/09/16 21:44 Dose: 100 mls/hr Insulin Human Regular (Humulin R) 0 units SC ACHS SUDHA PRN Reason: Protocol Last Admin: 10/09/16 23:13 Dose: Not Given Metronidazole (Flagyl) 500 mg PO Q8 [facility] Last Admin: 10/10/16 01:21 Dose: 500 mg Ondansetron HCl (Zofran Inj) 4 mg IVP Q6 PRN PRN Reason: Nausea/Vomiting Oxycodone/Acetaminophen (Percocet 5/325 Mg Tab) 1 tab PO Q4 PRN PRN Reason: Pain, moderate (4-7) Stop: 10/12/16 10:26 Last Admin: 10/09/16 21:43 Dose: 1 tab Tramadol HCl (Ultram) 50 mg PO Q6 PRN PRN Reason: Pain, moderate (4-7) Last Admin: 10/08/16 10:16 Dose: 50 mg Valsartan (Diovan) 160 mg PO DAILY [facility] Last Admin: 10/09/16 08:28 Dose: 160 mg - Labs Labs: 10/10/16 05:00 10/10/16 05:00 PT 12.5 Seconds (9.8-13.1) 10/07/16 06:30 INR 1.2 (0.9-1.2) 10/07/16 06:30 APTT 29.2 Seconds (25.6-37.1) 10/03/16 17:20 - Constitutional Appears: Well - Head Exam Head Exam: ATRAUMATIC, NORMAL INSPECTION, NORMOCEPHALIC - Eye Exam Eye Exam: EOMI, Normal appearance, PERRL Pupil Exam: NORMAL ACCOMODATION, PERRL - ENT Exam ENT Exam: Mucous Membranes Moist, Normal Exam - Neck Exam Neck Exam: Full ROM, Normal Inspection. absent: Lymphadenopathy - Respiratory Exam Respiratory Exam: Clear to Ausculation Bilateral, NORMAL BREATHING PATTERN - Cardiovascular Exam Cardiovascular Exam: REGULAR RHYTHM, +S1, +S2. absent: Murmur - GI/Abdominal Exam GI & Abdominal Exam: Soft, Tenderness, Normal Bowel Sounds. absent: Distended, Firm, Guarding, Rigid, Mass, Rebound Additional comments: Epigastric TTP. Incision /dressing C/D/I. - Extremities Exam Extremities Exam: Full ROM, Normal Capillary Refill, Normal Inspection. absent : Joint Swelling, Pedal Edema - Back Exam Back Exam: NORMAL INSPECTION - Neurological Exam Neurological Exam: Alert, Awake, CN II-XII Intact, Normal Gait, Oriented x3 - Psychiatric Exam Psychiatric exam: Normal Affect, Normal Mood - Skin Skin Exam: Dry, Intact, Normal Color, Warm Assessment and Plan - Assessment and Plan (Free Text) Assessment: POD 1 carey kruse Clinically stable -OK to DC for surgical standpoint -Diet -Ambulate -F/U with Dr. Overton in 1-2 weeks. -OK to take shower tomorrow. Take dressing off. -Keep steristrips on. - No heavy lifting for 1 month Will MARCO attending
--- NOTE | 2016-10-10 07:33 | CP.PCM.DIS ---
Provider - Provider Date of Admission: 10/03/16 20:09 Attending physician: Aron Barahona MD Time Spent in preparation of Discharge (in minutes): 30 Diagnosis - Discharge Diagnosis (1) Acute gallstone pancreatitis Status: Acute Hospital Course - Lab Results Lab Results: Micro Results 10/05/16 08:10 Naris MRSA Culture (Admit) - Final MRSA NOT DETECTED Most Recent Lab Values WBC 7.2 K/uL (4.8-10.8) D 10/10/16 05:00 RBC 4.51 Mil/uL (4.40-5.90) 10/10/16 05:00 Hgb 12.0 g/dL (12.0-18.0) 10/10/16 05:00 Hct 36.8 % (35.0-51.0) 10/10/16 05:00 MCV 81.5 fl (80.0-94.0) 10/10/16 05:00 MCH 26.6 pg (27.0-31.0) L 10/10/16 05:00 MCHC 32.6 g/dL (33.0-37.0) L 10/10/16 05:00 RDW 14.5 % (11.5-14.5) 10/10/16 05:00 Plt Count 143 K/uL (130-400) 10/10/16 05:00 MPV 9.1 fl (7.2-11.7) 10/10/16 05:00 Neut % (Auto) 71.1 % (50.0-75.0) 10/10/16 05:00 Lymph % (Auto) 16.0 % (20.0-40.0) L 10/10/16 05:00 [place] % (Auto) 12.0 % (0.0-10.0) H 10/10/16 05:00 Eos % (Auto) 0.6 % (0.0-4.0) 10/10/16 05:00 Baso % (Auto) 0.3 % (0.0-2.0) 10/10/16 05:00 Neut # 5.1 K/uL (1.8-7.0) 10/10/16 05:00 Lymph # 1.2 K/uL (1.0-4.3) 10/10/16 05:00 [place] # 0.9 K/uL (0.0-0.8) H 10/10/16 05:00 Eos # 0.0 K/uL (0.0-0.7) 10/10/16 05:00 Baso # 0.0 K/uL (0.0-0.2) 10/10/16 05:00 Neutrophils % (Manual) 94 % (42-75) H 10/04/16 04:25 Band Neutrophils % 4 % (0-2) H 10/03/16 17:20 Lymphocytes % (Manual) 1 % (20-50) L 10/04/16 04:25 Reactive Lymphs % 1 % (0-0) H 10/03/16 17:20 Monocytes % (Manual) 5 % (0-10) 10/04/16 04:25 Platelet Estimate Slightly decreased (NORMAL) L 10/04/16 04:25 Large Platelets Present 10/03/16 17:20 Anisocytosis (manual) Slight 10/04/16 04:25 ESR 19 mm/hr (0-20) 10/04/16 15:27 PT 12.5 Seconds (9.8-13.1) 10/07/16 06:30 INR 1.2 (0.9-1.2) 10/07/16 06:30 APTT 29.2 Seconds (25.6-37.1) 10/03/16 17:20 pO2 24 mm/Hg (30-55) L 10/03/16 21:45 VBG pH 7.43 (7.32-7.43) 10/03/16 21:45 VBG pCO2 36 mmHg (40-60) L 10/03/16 21:45 VBG HCO3 23.4 mmol/L 10/03/16 21:45 VBG Total CO2 25.0 mmol/L (22-28) 10/03/16 21:45 VBG O2 Sat (Calc) 52.6 % (40-65) 10/03/16 21:45 VBG Base Excess -0.1 mmol/L (0.0-2.0) L 10/03/16 21:45 Sodium 183.0 mmol/L (132-148) H* 10/03/16 21:45 Chloride 121.0 mmol/L (98-107) H 10/03/16 21:45 Glucose 118 mg/dL (75-110) H 10/03/16 21:45 Lactate 3.8 mmol/L (0.7-2.1) H 10/03/16 21:45 FiO2 21.0 % 10/03/16 21:45 Blood Gas Comments Vbg 10/03/16 21:45 Crit Value Called To Dr maria dolores cortes 10/03/16 21:45 Crit Value Called By 162 10/03/16 21:45 Crit Value Read Back Y 10/03/16 21:45 Blood Gas Notified Time 214810/03/16 21:45 Sodium 137 mmol/l (132-148) 10/10/16 05:00 Potassium 4.1 MMOL/L (3.6-5.0) 10/10/16 05:00 Chloride 104 mmol/L (98-107) 10/10/16 05:00 Carbon Dioxide 28 mmol/L (22-30) 10/10/16 05:00 Anion Gap 9 (10-20) L 10/10/16 05:00 BUN 12 mg/dl (9-20) 10/10/16 05:00 Creatinine 0.8 mg/dL (0.8-1.5) 10/10/16 05:00 Est GFR ( Amer) > 60 10/10/16 05:00 Est GFR (Non-Af Amer) > 60 10/10/16 05:00 POC Glucose (mg/dL) 92 mg/dL (65-110) 10/10/16 05:27 Random Glucose 89 mg/dL (75-110) 10/10/16 05:00 Hemoglobin A1c 6.2 % (4.2-6.5) 10/04/16 04:25 Calcium 8.3 mg/dL (8.4-10.2) L 10/10/16 05:00 Phosphorus 1.7 mg/dl (2.5-4.5) L 10/06/16 06:50 Magnesium 2.0 MG/DL (1.6-2.3) 10/06/16 06:50 Total Bilirubin 0.7 mg/dl (0.2-1.3) 10/10/16 05:00 Direct Bilirubin 0.6 mg/ml (0.0-0.4) H 10/06/16 06:50 AST 166 U/L (17-59) H D 10/10/16 05:00 ALT 155 U/L (21-72) H D 10/10/16 05:00 Alkaline Phosphatase 200 U/L (38-126) H D 10/10/16 05:00 Lactate Dehydrogenase 424 U/L (313-618) 10/05/16 04:55 Total Protein 5.8 G/DL (6.3-8.2) L 10/10/16 05:00 Albumin 3.1 g/dL (3.5-5.0) L 10/10/16 05:00 Globulin 2.7 gm/dL (2.2-3.9) 10/10/16 05:00 Albumin/Globulin Ratio 1.1 (1.0-2.1) 10/10/16 05:00 Triglycerides 53 mg/DL (0-149) 10/04/16 04:30 Cholesterol 126 mg/dL (0-199) 10/04/16 04:30 LDL Cholesterol Direct 86 mg/dL (0-129) 10/04/16 04:30 HDL Cholesterol 27 MG/DL (30-70) L 10/04/16 04:30 Lipase 66 U/L (23-300) 10/06/16 06:50 Urine Color Yellow (YELLOW) 10/04/16 08:20 Urine Clarity Clear (Clear) 10/04/16 08:20 Urine pH 6.0 (5.0-8.0) 10/04/16 08:20 Ur Specific [place] 1.013 (1.003-1.030) 10/04/16 08:20 Urine Protein Negative mg/dL (NEGATIVE) 10/04/16 08:20 Urine Glucose (UA) Neg mg/dL (Normal) 10/04/16 08:20 Urine Ketones Negative mg/dL (NEGATIVE) 10/04/16 08:20 Urine Blood Negative (NEGATIVE) 10/04/16 08:20 Urine Nitrate Negative (NEGATIVE) 10/04/16 08:20 Urine Bilirubin Negative (NEGATIVE) 10/04/16 08:20 Urine Urobilinogen 0.2-1.0 mg/dL (0.2-1.0) 10/04/16 08:20 Ur Leukocyte Esterase Neg Carol/uL (Negative) 10/04/16 08:20 Urine RBC (Auto) 3 /hpf (0-3) 10/04/16 08:20 Urine Microscopic WBC < 1 /hpf (0-5) 10/04/16 08:20 Ur Squamous Epith Cells < 1 /hpf (0-5) 10/04/16 08:20 Urine Bacteria Rare (<OCC) 10/04/16 08:10 Blood Type O POSITIVE 10/09/16 05:20 Blood Type Confirm O POSITIVE 10/09/16 11:00 Antibody Screen Negative 10/09/16 05:20 BBK History Checked No verified bt 10/09/16 05:20 - Hospital Course Hospital Course: 86 y/o gent with known Hx of HTN, DM, Carotid Stenosis, BPH came in bec of abd pain. Found to have Elevated lipase, abn LFT, elevated WBC ct . CT of the abdomen : Prominence of the pancreatic head with adjacent inflammatory change and mild ductal dilatation, findings suggest pancreatitis , underlying neoplasm cannot be excluded; gallstone; no renal or ureteral stones or hydronephrosis; no CT findings of appendicitis or diverticulitis Pt was started on IVF hydration, Pain mgt and IV antibiotics. Surgery consulted. LAP CANDIS yesterday, pt tolerated well, stable for DC home per surgery. 1. Sepsis sec to Cholecystitis, Pancreatitis Acute, improving Elevated WBC to 22k, elevated lactate level on admission- now normal started initially on IV cefepime and Flagyl - Cefepime changed to meropenem by ID. NOW PATIENT TO BE DISCHARGED ON CIPRO AND FLAGYL PO. ID consulted - Dr Manzano Blood c/s: neg so far IVF hydration Monitored in ICU initially , now transferred to Med Surg S/P LAP CANDIS POD 1 2. Acute gallstone pancreatitis-- resolved Acute Surgery consulted GI consult- discussed case with Dr Ramirez MRCP showed no Choledocholithiasis, so NO ERCP nor EUS necessary continue IVF hydration,pain mgt cont IV abx Cardio consulted for cardiac optimization ECHO normal EF, No significant Carotid stenosis on US - cleared by Dr Hernandez Lipase now normal LFTs trending down S/P LAP CANDIS POD 1 3. Cholecystitis, acute Acute Surgery consulted as above cont IV Meropenem 4. DM type 2 (diabetes mellitus, type 2) Chronic , controlled Hold oral hypoglycemics accucheck with coverage 5.HTN (hypertension) Chronic started Diovan ( pt on Olmesartan at home )and added Norvasc 6. Carotid Stenosis , history-- ruled out ECHO- normal EF, wall motion Carotid Sono- no significant stenosis cont statin as outpt 7. Thrombocytopenia prob sec to Infection/Sepsis, unlikely HIT as Platelet dropped before Lovenox started monitor Plt- improved today 134 k 8. Left Middle Finger Swelling, dry ulcer /Eschar ( POA) accdg to pt - this is chronic on and off - was placed on Clinda by his PMD prior to this admission ID consulted MRI of Finger - negative Osteomyelitis , may be cellulitis pt is on abx (8) DVT prophylaxis Acute Lovenox- close monitoring as Plt 134 Discharge Exam - Head Exam Head Exam: ATRAUMATIC, NORMAL INSPECTION, NORMOCEPHALIC - Eye Exam Eye Exam: EOMI, Normal appearance, PERRL - ENT Exam ENT Exam: Mucous Membranes Moist, Normal Oropharynx - Respiratory Exam Respiratory Exam: Clear to PA & Lateral, NORMAL BREATHING PATTERN - Cardiovascular Exam Cardiovascular Exam: RRR, +S1, +S2 - GI/Abdominal Exam GI & Abdominal Exam: Normal Bowel Sounds, Soft, Tenderness (at op sites s/p lap candis) - Extremities Exam Extremities exam: normal capillary refill, pedal pulses present - Back Exam Back exam: paraspinal tenderness. absent: CVA tenderness (L), CVA tenderness (R ) - Neurological Exam Neurological exam: Alert, Oriented x3 - Psychiatric Exam Psychiatric exam: Normal Affect, Normal Mood - Skin Skin Exam: Dry, Normal Color, Warm Discharge Plan - Discharge Medications Prescriptions: amLODIPine [Norvasc] 10 mg PO DAILY #30 tab Ciprofloxacin HCl [Cipro] 500 mg PO Q12 #20 tablet metroNIDAZOLE [Flagyl] 500 mg PO Q8 #30 tab Olmesartan/Hydrochlorothiazide [Benicar Hct 40-12.5 mg Tablet] 1 tab PO DAILY # 30 tab Pioglitazone HCl/Metformin HCl [Actoplus Met 15 mg-500 mg Tab] 1 tab PO DAILY # 30 tab traMADol [Ultram] 50 mg PO Q6 PRN #20 tab PRN Reason: Pain, Moderate (4-7) - Follow Up Plan Condition: FAIR Disposition: HOME/ ROUTINE Instructions: Laparoscopic Cholecystectomy (DC) Additional Instructions: follow up with Dr. Manzano in one week complete 10 days of Ciprofloxacin and Flagyl (both are antibiotics) follow up with dr overton in 1-2 wks Ok to shower tomorrow 10/11/16 take dressing off but leave steri strips on no heavy lifting for 1 month. [facility] visiting nurse Address: [address] [place] [address] Referrals: Linwood Manzano MD [Staff Provider] - Huan Bangura [Family Provider] - Suraj Overton MD [Staff Provider] -
[2016-10-10] MEDS: Insulin Regular 100 units/ml SC SCH ×3 (08:18→17:55)
[2016-10-10] MEDS: Ciprofloxacin 200mg/100ml D5W 100 ML IVPB SCH (10:54)
--- NOTE | 2016-10-10 12:45 | PCM.IRPREO ---
Pre Procedure Note - Allergies Allergies: Allergies Penicillins Allergy (Mild, Verified 04/22/15 13:07) RASH - Current Medications Current Medications: Home Medication List Medication Instructions Recorded Confirmed Type Ciprofloxacin HCl [Cipro] 500 mg PO Q12 #20 tablet 10/10/16 Rx Olmesartan/Hydrochlorothiazide 1 tab PO DAILY #30 tab 10/10/16 Rx [Benicar Hct 40-12.5 mg Tablet] Pioglitazone HCl/Metformin HCl 1 tab PO DAILY #30 tab 10/10/16 Rx [Actoplus Met 15 mg-500 mg Tab] amLODIPine [Norvasc] 10 mg PO DAILY #30 tab 10/10/16 Rx metroNIDAZOLE [Flagyl] 500 mg PO Q8 #30 tab 10/10/16 Rx traMADol [Ultram] 50 mg PO Q6 PRN #20 tab 10/10/16 Rx - Physical Exam Vital Signs: Vital Signs 10/10/16 10/10/16 07:23 09:01 Temperature 98.0 F Pulse Rate 82 82 Respiratory 20 Rate Blood Pressure 146/65 146/65 O2 Sat by Pulse 97 Oximetry
[2016-10-10 16:25] VITALS: BP 138/69; PULSE 71; TEMP 98.2; O2SAT 95
--- NOTE | 2016-11-01 16:50 | OP ---
PROCEDURE DATE: 10/03/2016 OPERATION PERFORMED: Laparoscopic cholecystectomy. SURGEON: Dr. Suraj Overton. ACCESS SERVICES LIBRARIAN: Dr. Chan. ANESTHESIA: General anesthesia. SECOND ACCESS SERVICES LIBRARIAN: Mary Benz. PREOPERATIVE DIAGNOSES: Cholelithiasis, gallstone, pancreatitis. POSTOPERATIVE DIAGNOSES: Cholelithiasis, gallstone, pancreatitis. OPERATIVE FINDINGS: Cystic duct, cystic artery identified, critical view obtained. ESTIMATED BLOOD LOSS: Minimal. OPERATIVE PROCEEDINGS: As follows: The patient was taken to the operating room and placed supine on the operating room table. After induction of general anesthesia, the abdomen was prepped and draped in a standard surgical fashion. A Veress needle was inserted into the abdomen through the umbilicus. The abdomen was insufflated. Once sufficient CO2 was entered into the abdomen, a 10-mm trocar was placed through the umbilicus and a diagnostic laparoscopy was performed. The patient was then placed into the reversed Trendelenburg left side down position and the subxiphoid and two right-sided trocars were placed under direct vision. The gallbladder was grasped from the fundus and pulled upwards and the neck of the gallbladder was pulled outwards exposing the triangle of Calot. Blunt dissection with a [place] dissector was used to isolate the contents of the triangle of Calot. Once the contents of the triangle were isolated, the cystic duct was identified and seen to be entering the gallbladder. The cystic duct was then clipped and divided. The cystic artery was then encircled clipped and divided in a similar fashion. The gallbladder was then taken off the gallbladder fossa using the electrocautery. Once the gallbladder was off the gallbladder fossa, it was placed into an EndoCatch bag. The right upper quadrant was copiously irrigated. The gallbladder fossa was checked for bleeding. There was no evidence of bleeding. The irrigant was removed. The gallbladder was then removed via the umbilical trocar site. The trocars were then removed under direct vision. The umbilical trocar site was closed using #0 Vicryl. The skin incisions were closed using #4-0 Monocryl and the patient had 10 cc of 1% Marcaine infiltrated into all the wounds. The patient tolerated the procedure well. There were no complications. The sponge, instrument, and needle counts were correct at the end of the case. POSTOPERATIVE CONDITION: The patient was then awakened from general anesthesia, transported to the recovery room in satisfactory condition. Suraj Overton MD [facility] # [id number]
== END 2016-10-10 18:13 | disposition home health service (06) | DRG 853 ==
LOC: H.ER 15:47 → H.ERHOLD 20:09 → H.ICU/CCU 21:35 → H.MEDSURG1 10-05 15:16
PROVIDERS: ADMIT Internal Medicine; ATTEND Internal Medicine
PROC: 3E0234Z Introduction of Serum, Toxoid and Vaccine into Muscle, Percutaneous Approach (ICD-10-PCS; 2016-10-04)
PROC: 0FT44ZZ Resection of Gallbladder, Percutaneous Endoscopic Approach (ICD-10-PCS; principal; 2016-10-09 09:45)
DX: A41.9 Sepsis, unspecified organism (principal); K85.10 Biliary acute pancreatitis without necrosis or infection; K80.62 Calculus of gallbladder and bile duct with acute cholecystitis without obstruction; D69.59 Other secondary thrombocytopenia; E87.70 Fluid overload, unspecified; E83.39 Other disorders of phosphorus metabolism; L03.012 Cellulitis of left finger; L98.499 Non-pressure chronic ulcer of skin of other sites with unspecified severity; E11.9 Type 2 diabetes mellitus without complications; I10 Essential (primary) hypertension; E78.5 Hyperlipidemia, unspecified; E78.00 Pure hypercholesterolemia, unspecified; N40.0 Benign prostatic hyperplasia without lower urinary tract symptoms; Z88.0 Allergy status to penicillin; Z23 Encounter for immunization; Z87.891 Personal history of nicotine dependence

== ENCOUNTER 2017-07-05 12:02 | Emergency (ER) | payer MEDICARE ==
[2017-07-05 12:02] VITALS: BMI 29.4
[2017-07-05 12:21] VITALS: RESP 16; O2SAT 99
[2017-07-05 13:53] LABS: BASO % 0.2 % (0.0-2.0); EOS % 0.5 % (0.0-4.0); HEMOGLOBIN 13.2 g/dL (12.0-18.0); LYMPH # 1.2 K/uL (1.0-4.3); LYMPH % 18.4 % (20.0-40.0); MEAN CELL VOLUME 81.2 fl (80.0-94.0); MEAN CORPUSCULAR HEMOGLOBIN 27.1 pg (27.0-31.0); MEAN CORPUSCULAR HGB CONC 33.4 g/dL (33.0-37.0); MEAN PLATELET VOLUME 9.6 fl (7.2-11.7); MONO # 1.3 K/uL (0.0-0.8); NEUT % 60.9 % (50.0-75.0); NRBC % 0.1 % (0.0-0.0); RBC 4.88 Mil/uL (4.40-5.90); RED CELL DISTRIBUTION WIDTH 14.2 % (11.5-14.5); WHITE BLOOD COUNT 6.6 K/uL (4.8-10.8)
[2017-07-05 13:54] LABS: ALB/GLOB RATIO 1.2 (1.0-2.1); ALT/SGPT 34 U/L (21-72); AST/SGOT 31 U/L (17-59); BLOOD UREA NITROGEN 35 mg/dl (9-20); GFR AFRICAN-AMERICAN > 60; GFR NON-AFRICAN AMERICAN 52
--- NOTE | 2017-07-05 14:06 | ED PDOC ---
Upper Extremity Pain/Injury Time Seen by Provider: 07/05/17 12:29 Chief Complaint (Nursing): Finger,Hand,&Wrist Chief Complaint (Provider): Right Wrist History Per: Patient History/Exam Limitations: no limitations Onset/Duration Of Symptoms: Days (x2) Current Symptoms Are (Timing): Still Present Additional Complaint(s): 87 y/o male with a pmhx of HTN, diabetes, and hypercholesterolemia, who presents to the ED due to right wrist pain and redness x2 days. Patient reports he had similar symptoms 6 years ago and was told he had gout. PMD: Huan Bangura Past Medical History Reviewed: Historical Data, Nursing Documentation, Vital Signs Vital Signs: Last Vital Signs Temp 98.0 F 07/05/17 12:17 Pulse 70 07/05/17 12:17 Resp 16 07/05/17 12:17 BP 125/60 07/05/17 12:17 Pulse Ox 99 07/05/17 12:17 - Medical History PMH: Diabetes, HTN, Hypercholesterolemia Denies: HIV, Chronic Kidney Disease - Surgical History Surgical History: Hernia Repair - Family History Family History: States: Unknown Family Hx - Immunization History Hx Tetanus Toxoid Vaccination: Yes (UTD as per patient) - Home Medications Home Medications: Ambulatory Orders Medication Instructions Recorded Ciprofloxacin HCl [Cipro] 500 mg PO Q12 #20 tablet 10/10/16 Olmesartan/Hydrochlorothiazide 1 tab PO DAILY #30 tab 10/10/16 [Benicar Hct 40-12.5 mg Tablet] Pioglitazone HCl/Metformin HCl 1 tab PO DAILY #30 tab 10/10/16 [Actoplus Met 15 mg-500 mg Tab] amLODIPine [Norvasc] 10 mg PO DAILY #30 tab 10/10/16 metroNIDAZOLE [Flagyl] 500 mg PO Q8 #30 tab 10/10/16 traMADol [Ultram] 50 mg PO Q6 PRN #20 tab 10/10/16 Clindamycin [Cleocin] 300 mg PO QID #40 cap 07/05/17 Colchicine [Mitigare] 0.6 mg PO ONCE #3 cap 07/05/17 - Allergies Allergies/Adverse Reactions: Allergies Allergy/AdvReac Type Severity Reaction Status Date / Time Penicillins Allergy Mild RASH Verified 07/05/17 12:17 Review of Systems ROS Statement: Except As Marked, All Systems Reviewed And Found Negative Musculoskeletal: Positive for: Hand Pain (right) Physical Exam - Reviewed Nursing Documentation Reviewed: Yes Vital Signs Reviewed: Yes - Physical Exam Appears: Positive for: Non-toxic, No Acute Distress Head Exam: Positive for: ATRAUMATIC, NORMAL INSPECTION, NORMOCEPHALIC Skin: Positive for: Normal Color, Warm, Dry Eye Exam: Positive for: Normal appearance Neck: Positive for: Normal Respiratory: Negative for: Accessory Muscle Use, Respiratory Distress Extremity: Positive for: Swelling (localized swelling and erythema to right posterior wrist joint) Neurologic/Psych: Positive for: Alert - Laboratory Results Result Diagrams: 07/05/17 13:20 07/05/17 13:20 - ECG O2 Sat by Pulse Oximetry: 99 (RA) Pulse Ox Interpretation: Normal Medical Decision Making Medical Decision Makin:53 Plan: --CMP --Uric acid --CBC --Blood culture --Reevaluation Scribe Attestation: Documented by Sebastián King, acting as a scribe for Pooja Smith PA-C. Provider Scribe Attestation: All medical record entries made by the Scribe were at my direction and personally dictated by me. I have reviewed the chart and agree that the record accurately reflects my personal performance of the history, physical exam, medical decision making, and the department course for this patient. I have also personally directed, reviewed, and agree with the discharge instructions and disposition. Disposition - Clinical Impression Clinical Impression: Gout - Patient ED Disposition Is Patient to be Admitted: No Counseled Patient/Family Regarding: Diagnosis, Need For Followup, Rx Given - Disposition Disposition: Routine/Home Disposition Time: 14:03 Condition: STABLE Prescriptions: Clindamycin [Cleocin] 300 mg PO QID #40 cap Colchicine [Mitigare] 0.6 mg PO ONCE #3 cap Instructions: Gout Forms: [employer] [facility] (Romansh)
[2017-07-05 14:37] VITALS: BP 125/78; PULSE 68; TEMP 98
== END 2017-07-05 14:36 | disposition home or self-care (01) ==
LOC: H.ER 12:02
DX: M10.9 Gout, unspecified (principal); E11.9 Type 2 diabetes mellitus without complications; E78.00 Pure hypercholesterolemia, unspecified; I10 Essential (primary) hypertension; Z88.0 Allergy status to penicillin